=== PATIENT | male | born 1940 | race Caucasian/White ===

== ENCOUNTER → 2018-08-22 08:41 | Outpatient (CLI) | payer OTHER, SELFPAY ==
--- NOTE | 2018-08-22 | DI.CT.S_ITS ---
PROCEDURE: CT KIDNEY URETER BLADDER (KUB) INDICATIONS: ABDOMINAL PAIN TECHNIQUE: Noncontrast 5 mm thick sections acquired from the diaphragms to the symphysis. 5 mm thick coronal and sagittal reformats were then performed. For radiation dose reduction, the following was used: automated exposure control, adjustment of mA and/or kV according to patient size. COMPARISON: [facility], CT, KIDNEY/ URETER/BLADDER, 01/30/2018, 9:52. FINDINGS: Image quality: Excellent. Lung bases: Lung bases are clear. Heart size is normal. Urinary system: Both kidneys are normal in size. No kidney stones. No hydronephrosis or perinephric fat stranding. Both ureters appear non-dilated throughout their expected courses. Bilateral renal cysts are present, with simple appearance although limited evaluation given the absence of IV contrast. Bladder wall thickness is normal; no calcified bladder stones. Other solid organs: Liver is normal in size. Gallbladder unremarkable although partially collapsed. Pancreas is normal in contours. Spleen is normal in size. No adrenal nodules. Peritoneum and bowel: Unenhanced bowel loops demonstrate normal wall thickness and caliber. No free fluid or air. Normal appendix Nodes and vessels: Bilateral renal hilar vascular calcifications No retroperitoneal or mesenteric adenopathy by size criteria. Aorta and inferior vena cava are normal in caliber. Abdominal wall: No ventral hernias. Pelvis: No free pelvic fluid. Small bilateral fat containing inguinal hernias. No pelvic adenopathy. Prostate enlarged. Bones: No suspicious bony lesions. No vertebral body compression fractures. IMPRESSION: No urolithiasis. No evidence of urinary obstruction. Presumed bilateral renal cysts, technically indeterminate in the absence of IV contrast although grossly unchanged. Normal appendix. Elsewhere, no acute abnormality. Chronic and incidental findings as above. Dictated by: Dyllan Golden M.D. on 08/22/2018 at 10:24 Approved by: Dyllan Golden M.D. on 08/22/2018 at 10:32
== END ==
PROVIDERS: PCP Internal Medicine; Visit Provider Internal Medicine
DX: N28.1 Cyst of kidney, acquired (principal); K40.20 Bilateral inguinal hernia, without obstruction or gangrene, not specified as recurrent; N40.0 Benign prostatic hyperplasia without lower urinary tract symptoms; R10.9 Unspecified abdominal pain
CPT/HCPCS: 74176

== ENCOUNTER → 2019-04-01 16:09 | Outpatient (CLI) | payer OTHER, SELFPAY ==
--- NOTE | 2019-04-01 | DI.RAD.S_ITS ---
PROCEDURE: XR CHEST 2V INDICATIONS: HYPERTENSION,PLEURAL EFFUSION TECHNIQUE: 2 views of the chest were acquired. COMPARISON: [facility], , CHEST 1 VIEW, 10/04/2016, 21:17. FINDINGS: Surgical changes and devices: Median sternotomy changes are present.. Lungs and pleura: Small bilateral effusions are identified with blunting of the posterior costophrenic angles. The pulmonary vascular markings are slightly prominent within the perihilar regions. No lobar consolidation is evident. Mediastinum: Mediastinal contours are normal. Heart size is mildly enlarged. There is aortic atherosclerosis. Bones and chest wall: No suspicious bony abnormalities. Soft tissues appear unremarkable. IMPRESSION: Cardiomegaly with increased vascular markings in small effusions may represent congestive heart failure and clinical correlation is recommended. Dictated by: Joaquín Monroe M.D. on 04/02/2019 at 8:56 Approved by: Joaquín Monroe M.D. on 04/02/2019 at 8:57
[2019-04-01 17:21] LABS: BUN Creatinine Ratio 11.4 (6-22); Blood Urea Nitrogen 25 mg/dL (9-20); Calcium 8.7 mg/dL (8.4-10.2); Carbon Dioxide 28 mmol/L (22-32); Chloride 102 mmol/L (98-107); Estimated Glomerular Filt Rate 29.1 mL/min (>60); Glucose 102 mg/dL (80-110); HEMOLYSIS 30 (0-50); Potassium 4.9 mmol/L (3.4-5.1); Sodium 140 mmol/L (137-145)
== END ==
PROVIDERS: Visit Provider Internal Medicine
DX: I10 Essential (primary) hypertension (principal); J90 Pleural effusion, not elsewhere classified
CPT/HCPCS: 36415; 71046; 80048

== ENCOUNTER 2019-05-21 12:30 | Outpatient (RCR) | payer OTHER, SELFPAY ==
--- NOTE | 2019-04-24 16:00 | OT.OP.EVAL ---
Visit Care Team Role Provider Type Sindi Weinstein MD Attending Provider Physician Primary Care Provider Specialty: Internal Medicine Address: [address] [place] [address], [id number] Email: Occupational Therapy Initial Evaluation OT Outpatient Adult Evaluation Start: 04/24/19 15:23 Freq: Status: Active Protocol: Document 04/23/19 15:24 AMS (Rec: 04/24/19 16:00 AMS [id number]) General Information Visit Start Time 12:30 Visit Stop Time 13:30 Total Visit Minutes 60 Visit Number 10/23 Plan of Care Dates 04/23/19-07/16/19 Insurance Information [employer] Treatment Setting Outpatient Care Note Type Initial Evaluation Referring Physician Sindi Weinstein MD Reason for Referral CVA Precautions Sternal Precautions have been lifted Identification Confirmed Yes Identification Confirmed By Daughter Patient Goals Improve upon functional abilities (written expression; reading) Medical History Patient was admitted for planned coronary artery bypass grafting on March 03, 2019 at [facility] located in [place], [place]. Post op day 1, patient presented with slurred speech and word finding difficulties. 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 Deficits identified were aphasia, generalized weakness, decreased functional mobility, balance and right sided neglect. He received inpatient therapy services, (ST, OT, and PT) over a 9-day period. He was transferred to [place] and received an additional 2 weeks of intensive inpatient therapy services. From [place] , he was discharged home and received ST, OT, and PT Home Health Services through [facility]. [facility] Outpatient Health History form was completed; significant for blood pressure; Hepatitis C; Stroke; open heart surgery; Thyroid Disorder Previous Therapy/Therapies Yes History of Therapy Inpatient OT, PT, ST. Home Health OT, PT, ST. Social History Resides with . 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 Correctly identified 33/40 2- digit numbes (x 2) x 8 rows. Reported h/o skipping words when reading (per daughter). Difficulty with visual scanning. Difficulties observed w/ circling 2-digit numbers w/ visual scanning activity; however, improved w/ accuracy w/ repetitions. Difficulty reading favorite magazine (per daughter). Difficulty with visual discrimination and visual figure ground activities. Recommend finishing standardized assessment addressing visual perceptual skills at time of next treatment session. Range of Motion Basic ROM Function WFL Goals Treatment Initiated HEP. Instructed on methods to decrease amount of visual information presented at one time to support success w/ reading, as well as increase success w/ self- identifying errors w/ self- provided auditory feedback. Instructed in activities to complete at home to support identified areas. Discussed being 'present'/'checking in' when transitioning between tasks. Alex and his daughter denied questions. Short Term Goals 1. Patient will actively participate in visual perception/visual motor standardized assessments with encouragement from therapist. 2. Patient will demonstrate improving visual scanning abilities, as evidenced by patient's ability to correctly identify 90% of items with tabletop visual scanning activity, as observed in 2 out of 3 trials, requiring supervision. 3. Patient will demonstrate improving visual motor abilities, as evidenced by patient's ability to correctly la posta 90% of items with tabletop visual scanning activity, as observed in 2 out of 3 trials, requiring supervision. Correction Goals 1. Patient will be modified independent with home exercise program utilizing provided written and visual instructions from therapist. 2. Assessment/Plan Patient Response Good Rehabilitation Potential Good Impairments Identified Functional Activities Recreational Activities Meaningful Activities Visual Motor Visual Perception Motor Planning Treatment Assessment Patient is a 78 year-old right hand dominant male referred to outpatient OT by Sindi Weinstein MD d/t having stroke. Patient was admitted for planned coronary artery bypass grafting on March 03, 2019 at [facility] located in [place], [place]. Post op day 1, patient presented with slurred speech and word finding difficulties. 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 Deficits identified were aphasia, generalized weakness, decreased functional mobility, balance and right sided neglect. He received inpatient therapy services, (ST, OT, and PT) over a 9-day period. He was transferred to [place] and received an additional 2 weeks of intensive inpatient therapy services. From [place] , he was discharged home and received ST, OT, and PT Home Health Services through [facility]. Additional PMH: Significant for blood pressure ; Hepatitis C; Stroke; open heart surgery; Thyroid Disorder; Cataracts - h/o cataract surgery. Patient has been evaluated by outpatient TERMITE HELPER; will be seen on a regular basis. Patient was accompanied by daughter and granddaughter to OT initial evaluation. 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 's concerns: Navigation of [employer] cecelia; transitions between activities; using both hands/arms with s-s. Evaluation findings: Right hand dominant male; decreased ability to actively and successfully engage in meaningful activities compared to PLOF; decreased visual motor and visual perceptual skills. Outpatient OT is recommended to address these areas in order to maximize Alex's success with active participation in meaningful activities. Home Exercise Program Please refer to above treatment section for details. Comment 12 weeks Treatment Frequency Once a Week Therapeutic Contents Client Education Cognitive Skills Development Functional Activities Home Exercise Program Joint Protection Education Neurodevelopment Treatment Neuromuscular Re-Education Self-Care Stretching/Flexibility Activities Therapeutic Activities Therapeutic Exercises Sensory Re-education Modalities As Needed As Prescribed Patient Instruction Home Exercise Program Plan of Care Questions/Concerns
--- NOTE | 2019-05-05 16:11 | OT.OP.TRT ---
Visit Care Team Role Provider Type Sindi Weinstein MD Attending Provider Physician Primary Care Provider Specialty: Internal Medicine Address: [address] [place] [address], [id number] Email: Occupational Therapy Treatment Note OT Outpatient Treatment Note - Adult Start: 04/24/19 15:23 Freq: Status: Active Protocol: Document 05/05/19 15:54 AMS (Rec: 05/05/19 16:11 AMS [email or web address]) OT Outpatient Adult Treatment Note Session Time Visit Start Time 13:30 Visit Stop Time 14:30 Total Visit Minutes 60 Visit Information Visit Number [id number] Plan of Care Dates 04/23/19-07/16/19 Insurance Information [employer] Setting Treatment Setting Outpatient Care Visit Type Note Type Treatment Note General Information General Information Patient is a 78 year-old right hand dominant male referred to outpatient OT by Sindi Weinstein MD d/t having stroke. Patient was admitted for planned coronary artery bypass grafting on March 03, 2019 at [facility] located in [place], [place]. Post op day 1, patient presented with slurred speech and word finding difficulties. 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 Deficits identified were aphasia, generalized weakness, decreased functional mobility, balance and right sided neglect. He received inpatient therapy services, (ST, OT, and PT) over a 9-day period. He was transferred to [facility] and received an additional 2 weeks of intensive inpatient therapy services. From [facility] , he was discharged home and received ST, OT, and PT Home Health Services through [facility]. Additional PMH: Significant for blood pressure ; Hepatitis C; Stroke; open heart surgery; Thyroid Disorder; Cataracts - h/o cataract surgery. Patient has been evaluated by outpatient RN X RAY; will be seen on a regular basis. - Subjective Identification Type Name Identification Reconciled With Medical Record Others Present Family Observations He was able to put the juicer together, take it apart, and then clean it all by himself this morning per . He has started doing john yoga at home again per . He had trouble with his spatial awareness before all of this happened per . Patient Expectation/Goals Improve upon functional abilities (written expression; reading) Patient/Caregiver Compliance with Home Good Exercise Program Comments w/ family support - Objective Objective Measurements Therapist finished administering the Motor-Free Visual Perception Test - Fourth Edition on this treatment date; please refer to standardized section of note for specific details. Impaired visual perceptual skills; decreased understanding of spatial relations. (+) understanding of laterality (left versus right) per 's report and ability to match therapist's image. Short Term Goals 1. Patient will actively participate in visual perception/visual motor standardized assessments with encouragement from therapist. 2. Patient will demonstrate improving visual scanning abilities, as evidenced by patient's ability to correctly identify 90% of items with tabletop visual scanning activity, as observed in 2 out of 3 trials, requiring supervision. 3. Patient will demonstrate improving visual motor abilities, as evidenced by patient's ability to correctly [place] 90% of items with tabletop visual scanning activity, as observed in 2 out of 3 trials, requiring supervision. Lard Bleacher Goals 1. Patient will be modified independent with home exercise program utilizing provided written and visual instructions from therapist. - Treatment 2 Descriptor HEP. Visual perceptual activities were recommended to address spatial relationships , visual memory and visual discrimination. Activities were demonstrated in treatment session. Functional visual scanning activities were also recommended. Patient and denied questions. Complexity Upgraded 1 Descriptor Visual perceptual skills - Assessment Patient Response to Treatment Good Rehab Potential Good Impairments Identified Attention Cognition Visual Motor Visual Perception Assessment of Improvement Patient was accompanied by ; (+) support from family/ spouse. MVPT-4: The Motor- Free Visual Perception Test ( 4th ed.) (MVPT-4) is an individually administered assessment of visual- perceptual skills. The MVPT-4 tasks provide information for five types of visual- perceptual abilities: spatial relationships, visual discrimination, figure-ground, visual closure, and visual memory. Alex obtained a standard score of 79 which is >1 SD below the mean.Alex's performance suggests that his visual perceptual abilities are slightly impaired compared to his peers. Recommend advancing HEP as able/ tolerated. Home Exercise Program Please refer to treatment section of note for specific details. Reviewed with Patient/Caregiver Goals Progress Being Made Home Exercise Program Patient/Caregiver Understanding Good - Plan Therapy Recommendations Continue with Current Program Advance per Rehabilitation Protocol Other Referrals Consult w/ RN X RAY Occupational Therapy Assessment OT Outpatient Standardized Assessments Start: 04/24/19 15:23 Freq: Status: Active Protocol: Document 05/05/19 15:54 AMS (Rec: 05/05/19 16:11 AMS [email or web address]) Motor-Free Visual Perception Test-4 (4:0 to 80+ years) Date of Test Date of Test 04/23/19 & 05/05/19 Age in Months Age 78 years, 8 months Score Summary Raw Score 19 Standard Score 79 Percentile Rank 8
--- NOTE | 2019-05-13 11:21 | OT.OP.TRT ---
Visit Care Team Role Provider Type Sindi Weinstein MD Attending Provider Physician Primary Care Provider Specialty: Internal Medicine Address: [address] [place] [address], [id number] Email: Occupational Therapy Treatment Note OT Outpatient Treatment Note - Adult Start: 04/24/19 15:23 Freq: Status: Active Protocol: Document 05/13/19 11:07 AMS (Rec: 05/13/19 11:21 AMS [email or web address]) OT Outpatient Adult Treatment Note Session Time Visit Start Time 09:30 Visit Stop Time 10:30 Total Visit Minutes 60 Visit Information Visit Number 12/21 Plan of Care Dates 04/23/19-07/16/19 Insurance Information [facility]-Medicare Setting Treatment Setting Outpatient Care Visit Type Note Type Treatment Note General Information General Information Patient is a 78 year-old right hand dominant male referred to outpatient OT by Sindi Weinstein MD d/t having stroke. Patient was admitted for planned coronary artery bypass grafting on March 03, 2019 at [facility] located in [place], [place]. Post op day 1, patient presented with slurred speech and word finding difficulties. 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 Deficits identified were aphasia, generalized weakness, decreased functional mobility, balance and right sided neglect. He received inpatient therapy services, (ST, OT, and PT) over a 9-day period. He was transferred to [place] and received an additional 2 weeks of intensive inpatient therapy services. From [place] , he was discharged home and received ST, OT, and PT Home Health Services through [facility]. Additional PMH: Significant for blood pressure ; Hepatitis C; Stroke; open heart surgery; Thyroid Disorder; Cataracts - h/o cataract surgery. Patient has been evaluated by outpatient PRE CERTIFICATION SPECIALIST; will be seen on a regular basis. - Subjective Identification Type Name Identification Reconciled With Medical Record Others Present Family Observations He is doing amazing in P.T. per . He is doing yoga and interval training at home . He now knows above and below per . I thought I missed more than that per Alex in re: visual scanning activity that was completed. Patient Expectation/Goals Improve upon functional abilities (written expression; reading) Patient/Caregiver Compliance with Home Good Exercise Program Comments w/ family support - Objective Objective Measurements Therapist finished administering [facility]; please refer to standardized section of note for specific details. Impaired visual perceptual skills; impaired visual motor abilities. Correctly identified 35/36 items with visual scanning activity (x 2 items - upper case letters). Short Term Goals 1. Patient will actively participate in visual perception/visual motor standardized assessments with encouragement from therapist. 05/13/19= participated in Beery VMI Full Form 2. Patient will demonstrate improving visual scanning abilities, as evidenced by patient's ability to correctly identify 90% of items with tabletop visual scanning activity, as observed in 2 out of 3 trials, requiring supervision. 05/13/19= 50% met; x 1 trial 3. Patient will demonstrate improving visual motor abilities, as evidenced by patient's ability to correctly [place] 90% of items with tabletop visual scanning activity, as observed in 2 out of 3 trials, requiring supervision. 05/13/19= 50% met; x 1 trial 4. Patient will demonstrate improving visual perceptual/ visual motor abilities, as evidenced by patient's ability to [place] and identify 90% of words in word search requiring supervision. 05/13/19 = 6/15 w/ max assist x 2 words Electrolysis Engineer Goals 1. Patient will be modified independent with home exercise program utilizing provided written and visual instructions from therapist. - Treatment 3 Descriptor Beery VMI Full Form 2 Descriptor HEP. Recommended word searches ; instructed in tool to support ability to visually identify words in diagonals ( both directions). Demonstrated use of tool in treatment session. Provided several word searches for home completion. Recommended practicing writing and mazes to support visual motor abilities. Patient and denied questions. Complexity Upgraded 1 Descriptor Visual perceptual skills - Assessment Patient Response to Treatment Good Rehab Potential Good Impairments Identified Attention Cognition Visual Motor Visual Perception Assessment of Overall Progress Improving Assessment of Improvement Patient was accompanied by ; (+) support from family/ spouse. Beery VMI Full Form was administered; Alex's performance on the Beery VMI suggests that he has a decreased ability to integrate visual and motor abilities compared to same aged peers ( raw score = 19; standard score = 71; Low categorization of performance). Given time constraints, therapist was unable to administer Visual Perception and Motor Coordination Beery VMI subtests. Recommend administering additional subtest(s) at time of next treatment session ( specifically Motor Coordination subtest). Despite impaired visual motor abilities identified with standardized testing, Alex is demonstrating improving ability to interpret visual information. This is evidenced by correctly identifying 35/ 36 with visual scanning task ( versus initially identifying 33/40 correctly on first activity). This is also evidenced by ability to upgrade HEP and introduce diagonals w/ visual perceptual spatial relationship understanding. Recommend advancing HEP as able/ tolerated. Home Exercise Program Please refer to treatment section of note for specific details. Reviewed with Patient/Caregiver Goals Progress Being Made Home Exercise Program Patient/Caregiver Understanding Good - Plan Therapy Recommendations Continue with Current Program Advance per Rehabilitation Protocol Other Referrals Consult w/ PRE CERTIFICATION SPECIALIST and PT Occupational Therapy Assessment OT Outpatient Standardized Assessments Start: 04/24/19 15:23 Freq: Status: Active Protocol: Document 05/13/19 11:07 AMS (Rec: 05/13/19 11:21 AMS [email or web address]) Motor-Free Visual Perception Test-4 (4:0 to 80+ years) Date of Test Date of Test 04/23/19 & 05/05/19 Age in Months Age 78 years, 8 months Score Summary Raw Score 19 Standard Score 79 Percentile Rank 8 Rosakian GUMARO Date of Test Date of Test 05/13/19 Full Form Raw Score 19 Standard Score 71 Scaled Score 4 Percentile 3 Interpretation of Standard Score Low (70-79)
--- NOTE | 2019-05-18 15:59 | OT.OP.TRT ---
Visit Care Team Role Provider Type Sindi Weinstein MD Attending Provider Physician Primary Care Provider Specialty: Internal Medicine Address: [address] [place] [address], [id number] Email: Occupational Therapy Treatment Note OT Outpatient Treatment Note - Adult Start: 04/24/19 15:23 Freq: Status: Active Protocol: Document 05/18/19 15:49 AMS (Rec: 05/18/19 15:59 AMS [email or web address]) OT Outpatient Adult Treatment Note Session Time Visit Start Time 13:30 Visit Stop Time 14:30 Total Visit Minutes 60 Visit Information Visit Number 01/21 Plan of Care Dates 04/23/19-07/16/19 Insurance Information [employer]-Medicare Setting Treatment Setting Outpatient Care Visit Type Note Type Treatment Note General Information General Information Patient is a 78 year-old right hand dominant male referred to outpatient OT by Sindi Weinstein MD d/t having stroke. Patient was admitted for planned coronary artery bypass grafting on March 03, 2019 at [facility] located in [place], [place]. Post op day 1, patient presented with slurred speech and word finding difficulties. 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 Deficits identified were aphasia, generalized weakness, decreased functional mobility, balance and right sided neglect. He received inpatient therapy services, (ST, OT, and PT) over a 9-day period. He was transferred to [place] and received an additional 2 weeks of intensive inpatient therapy services. From [place] , he was discharged home and received ST, OT, and PT Home Health Services through [facility]. Additional PMH: Significant for blood pressure ; Hepatitis C; Stroke; open heart surgery; Thyroid Disorder; Cataracts - h/o cataract surgery. Patient has been evaluated by outpatient SKILLS INSTRUCTOR; will be seen on a regular basis. - Subjective Identification Type Name Identification Reconciled With Medical Record Others Present Family Observations He is doing amazing in P.T. per . He is doing yoga and interval training at home . He now knows above and below per . I thought I missed more than that per Alex in re: visual scanning activity that was completed. Patient Expectation/Goals Improve upon functional abilities (written expression; reading) Patient/Caregiver Compliance with Home Good Exercise Program Comments w/ family support - Objective Objective Measurements Accompanied by 'Merline' to treatment session. Able to replicate 5/5 3x3 dot grid patterns w/ 1 model and S. Mod to max difficulty w/ visual motor TT task w/ 4 different pairs to match; mod phys assist to successfully complete. Max verbal and visual cues to support success w/ matching tiles w/ visual perceptual TT task. Correctly identified 35/36 items with visual scanning activity (x 2 items - upper case letters). Short Term Goals 1. Patient will actively participate in visual perception/visual motor standardized assessments with encouragement from therapist. 05/13/19= participated in iYogiy I Full Form 2. Patient will demonstrate improving visual scanning abilities, as evidenced by patient's ability to correctly identify 90% of items with tabletop visual scanning activity, as observed in 2 out of 3 trials, requiring supervision. 05/13/19= 50% met; x 1 trial 3. Patient will demonstrate improving visual motor abilities, as evidenced by patient's ability to correctly [place] 90% of items with tabletop visual scanning activity, as observed in 2 out of 3 trials, requiring supervision. 05/13/19= 50% met; x 1 trial 4. Patient will demonstrate improving visual perceptual/ visual motor abilities, as evidenced by patient's ability to [place] and identify 90% of words in word search requiring supervision. 05/13/19 = 6/15 w/ max assist x 2 words Business Technology Analyst Goals 1. Patient will be modified independent with home exercise program utilizing provided written and visual instructions from therapist. - Treatment 4 Descriptor Visual motor skills Puzzle pathways; imitation of 3x3 grids; directional maze Complexity Upgraded 3 Descriptor Beery VMI Full Form 2 Descriptor HEP. Upgraded visual scanning tasks x 2 w/ arrows to assist w/ directionality in different situations; demonstrated in treatment session. Provided additional large print word searches, as well as visual motor tasks (x 2 different approaches - dots versus pathways w/ pencil (with restrictions). Visual motor tasks practiced in treatment session; all questions were answered. Patient and Mreline denied questions. Complexity Upgraded 1 Descriptor Visual perceptual skills x2 opposite arrows w/ visual scanning; grid tile game ( simplified); Complexity Upgraded - Assessment Patient Response to Treatment Good Rehab Potential Good Impairments Identified Attention Cognition Visual Motor Visual Perception Assessment of Overall Progress Improving Rehabilitated Assessment of Improvement Focus of treatment session on HEP given therapist will be going on vacation. Recommend administering additional subtest(s) at time of next treatment session ( specifically Motor Coordination subtest) time permitting. Continued need to address impaired visual perceptual and visual motor skills. Recommend combining visual perceptual and visual fine motor tasks as able. Recommend advancing HEP as able/tolerated. Home Exercise Program Please refer to treatment section of note for specific details. Reviewed with Patient/Caregiver Goals Progress Being Made Home Exercise Program Patient/Caregiver Understanding Good - Plan Therapy Recommendations Continue with Current Program Advance per Rehabilitation Protocol Other Referrals Consult w/ SKILLS INSTRUCTOR and PT
--- NOTE | 2019-05-21 15:48 | OT.OP.TRT ---
Visit Care Team Role Provider Type Sindi Weinstein MD Attending Provider Physician Primary Care Provider Specialty: Internal Medicine Address: [address] [place] [address], [id number] Email: Occupational Therapy Treatment Note OT Outpatient Treatment Note - Adult Start: 04/24/19 15:23 Freq: Status: Active Protocol: Document 05/21/19 15:33 AMS (Rec: 05/21/19 15:35 AMS [email or web address]) OT Outpatient Adult Treatment Note Session Time Visit Start Time 12:30 Visit Stop Time 13:25 Total Visit Minutes 55 Visit Information Visit Number 02/20 Plan of Care Dates 04/23/19-07/16/19 Insurance Information [facility]-Medicare Setting Treatment Setting Outpatient Care Visit Type Note Type Treatment Note General Information General Information Patient is a 78 year-old right hand dominant male referred to outpatient OT by Sindi Weinstein MD d/t having stroke. Patient was admitted for planned coronary artery bypass grafting on March 03, 2019 at [facility] located in [place], [place]. Post op day 1, patient presented with slurred speech and word finding difficulties. 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 Deficits identified were aphasia, generalized weakness, decreased functional mobility, balance and right sided neglect. He received inpatient therapy services, (ST, OT, and PT) over a 9-day period. He was transferred to [place] and received an additional 2 weeks of intensive inpatient therapy services. From [place] , he was discharged home and received ST, OT, and PT Home Health Services through [facility]. Additional PMH: Significant for blood pressure ; Hepatitis C; Stroke; open heart surgery; Thyroid Disorder; Cataracts - h/o cataract surgery. Patient has been evaluated by outpatient WIRE FRAME LAMP SHADE MAKER; will be seen on a regular basis. - Subjective Identification Type Name Identification Reconciled With Medical Record Others Present Family Observations We would like to have some more to work on per Merline w/ therapist being out of the clinic during the upcoming weeks. Patient Expectation/Goals Improve upon functional abilities (written expression; reading) Patient/Caregiver Compliance with Home Good Exercise Program Comments w/ family support - Objective Objective Measurements Accompanied by 'Merline' to treatment session. Missed 4 items with visual scanning paper TT task; increased difficulty of task w/ decreased spacing between letters. Able to imitate x 3 simple square grid images (x 1 on 4x9 grid; x 1 on 8x7 grid; x 1 on 6x5) WFL w/ increased time and cueing to break down task into smaller component parts - focusing on 1-step at a time. Able to correctly continue 5/7 square patterns w / 1-2 to max verbal cues. Increased accuracy observed w/ shading/coloring when focused on present task. Correctly identified 35/36 items with visual scanning activity (x 2 items - upper case letters). Short Term Goals 1. Patient will demonstrate improving visual scanning abilities, as evidenced by patient's ability to correctly identify 90% of items with tabletop visual scanning activity, as observed in 2 out of 3 trials, requiring supervision. 05/13/19= 50% met; x 1 trial 2. Patient will demonstrate improving visual motor abilities, as evidenced by patient's ability to correctly [facility] 90% of items with tabletop visual scanning activity, as observed in 2 out of 3 trials, requiring supervision. 05/13/19= 50% met; x 1 trial 3. Patient will demonstrate improving visual perceptual/ visual motor abilities, as evidenced by patient's ability to [facility] and identify 90% of words in word search requiring supervision. 05/13/19 = 6/15 w/ max assist x 2 words GOALS MET Actively participated in visual motor/visual perceptual standardized assessments. * MET [facility] Goals 1. Patient will be modified independent with home exercise program utilizing provided written and visual instructions from therapist. - Treatment 4 Descriptor Visual motor skills Imitation of square grid images x3; continuation of square patterns x7 Visual letter search (x 2 letters A, F) Complexity Upgraded 2 Descriptor HEP. Provided similar activities that were completed in treatment session for patient to complete in the home. Patient and Merline denied questions. Complexity Upgraded 1 Descriptor Visual perceptual skills x2 opposite arrows w/ visual scanning; grid tile game ( simplified); Complexity Upgraded - Assessment Patient Response to Treatment Good Rehab Potential Good Impairments Identified Attention Cognition Visual Motor Visual Perception Assessment of Overall Progress Improving Rehabilitated Assessment of Improvement Impaired visual perceptual/ visual motor skills. Increased accuracy at fine motor level relative to quality of completion w/ increased focus on current task/breaking down task into smaller component parts. Patient verbalized need for increased concentration when completing visual motor tasks. Recommend combining visual perceptual and visual fine motor tasks as able. Recommend advancing HEP as able/tolerated. Home Exercise Program Please refer to treatment section of note for specific details. Reviewed with Patient/Caregiver Goals Progress Being Made Home Exercise Program Patient/Caregiver Understanding Good - Plan Therapy Recommendations Continue with Current Program Advance per Rehabilitation Protocol Other Referrals Consult w/ WIRE FRAME LAMP SHADE MAKER and PT
--- NOTE | 2019-05-25 15:19 | OT.OP.TRT ---
Visit Care Team Role Provider Type Sindi Weinstein MD Attending Provider Physician Primary Care Provider Specialty: Internal Medicine Address: [address] [place] [address], [phone] Email: Occupational Therapy Treatment Note OT Outpatient Treatment Note - Adult Start: 04/24/19 15:23 Freq: Status: Active Protocol: Document 05/25/19 15:14 AMS (Rec: 05/25/19 15:19 AMS [email or web address]) OT Outpatient Adult Treatment Note Session Time Visit Start Time 14:30 Setting Treatment Setting Outpatient Care Visit Type Note Type Administrative Note General Information General Information Patient is a 78 year-old right hand dominant male referred to outpatient OT by Sindi Weinstein MD d/t having stroke. Patient was admitted for planned coronary artery bypass grafting on March 03, 2019 at [facility] located in [place], [place]. Post op day 1, patient presented with slurred speech and word finding difficulties. 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 Deficits identified were aphasia, generalized weakness, decreased functional mobility, balance and right sided neglect. He received inpatient therapy services, (ST, OT, and PT) over a 9-day period. He was transferred to [place] and received an additional 2 weeks of intensive inpatient therapy services. From [place] , he was discharged home and received ST, OT, and PT Home Health Services through [facility]. Additional PMH: Significant for blood pressure ; Hepatitis C; Stroke; open heart surgery; Thyroid Disorder; Cataracts - h/o cataract surgery. Patient has been evaluated by outpatient AFFILIATE MARKETING COORDINATOR; will be seen on a regular basis. - Subjective Observations Additional TT HEP OT activities were provided to Alex prior to outpatient AFFILIATE MARKETING COORDINATOR appointment for completion over the next several weeks given that therapist would be out of the clinic. Example of TT activities included were: mazes, word searches. - - - -
--- NOTE | 2019-06-16 10:41 | OT.OP.DC ---
Visit Care Team Role Provider Type Sindi Weinstein MD Attending Provider Physician Primary Care Provider Address: [address] [place] [address], [id number] Email: [email or web address] OT Outpatient OT Outpatient Adult Evaluation Start: 04/24/19 15:23 Freq: Status: Active Protocol: Document 04/23/19 15:24 AMS (Rec: 04/24/19 16:00 AMS [id number]) General Information Session Time Visit Start Time 12:30 Visit Stop Time 13:30 Total Visit Minutes 60 Visit Information Visit Number 10/23 Plan of Care Dates 04/23/19-07/16/19 Insurance Information [facility]-Medicare Setting Treatment Setting Outpatient Care Visit Type Note Type Initial Evaluation Referral Referring Physician Sindi Weinstein MD Reason for Referral CVA Precautions Sternal Precautions have been lifted Identification Identification Confirmed Yes Identification Confirmed By Daughter Patient Patient Goals Improve upon functional abilities (written expression; reading) Medical Information Medical History Patient was admitted for planned coronary artery bypass grafting on March 03, 2019 at [facility] located in [place], [place]. Post op day 1, patient presented with slurred speech and word finding difficulties. 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 Deficits identified were aphasia, generalized weakness, decreased functional mobility, balance and right sided neglect. He received inpatient therapy services, (ST, OT, and PT) over a 9-day period. He was transferred to [place] and received an additional 2 weeks of intensive inpatient therapy services. From [place] , he was discharged home and received ST, OT, and PT Home Health Services through [facility]. [facility] Outpatient Health History form was completed; significant for blood pressure; Hepatitis C; Stroke; open heart surgery; Thyroid Disorder Previous Therapy Previous Therapy/Therapies Yes History of Therapy Inpatient OT, PT, ST. Home Health OT, PT, ST. Social Information Social History Resides with . 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 Correctly identified 33/40 2- digit numbes (x 2) x 8 rows. Reported h/o skipping words when reading (per daughter). Difficulty with visual scanning. Difficulties observed w/ circling 2-digit numbers w/ visual scanning activity; however, improved w/ accuracy w/ repetitions. Difficulty reading favorite magazine (per daughter). Difficulty with visual discrimination and visual figure ground activities. Recommend finishing standardized assessment addressing visual perceptual skills at time of next treatment session. Range of Motion Overall Ability Basic ROM Function WFL Goals Treatment Treatment Initiated HEP. Instructed on methods to decrease amount of visual information presented at one time to support success w/ reading, as well as increase success w/ self- identifying errors w/ self- provided auditory feedback. Instructed in activities to complete at home to support identified areas. Discussed being 'present'/'checking in' when transitioning between tasks. Alex and his daughter denied questions. Short Term Goals Short Term Goals 1. Patient will actively participate in visual perception/visual motor standardized assessments with encouragement from therapist. 2. Patient will demonstrate improving visual scanning abilities, as evidenced by patient's ability to correctly identify 90% of items with tabletop visual scanning activity, as observed in 2 out of 3 trials, requiring supervision. 3. Patient will demonstrate improving visual motor abilities, as evidenced by patient's ability to correctly the [place] 90% of items with tabletop visual scanning activity, as observed in 2 out of 3 trials, requiring supervision. Alf Goals Rf Test Technician Goals 1. Patient will be modified independent with home exercise program utilizing provided written and visual instructions from therapist. 2. Assessment/Plan Assessment Patient Response Good Rehabilitation Potential Good Impairments Identified Functional Activities, Recreational Activities, Meaningful Activities,Visual Motor,Visual Perception,Motor Planning Treatment Assessment Patient is a 78 year-old right hand dominant male referred to outpatient OT by Sindi Weinstein MD d/t having stroke. Patient was admitted for planned coronary artery bypass grafting on March 03, 2019 at [facility] located in [place], [place]. Post op day 1, patient presented with slurred speech and word finding difficulties. 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 Deficits identified were aphasia, generalized weakness, decreased functional mobility, balance and right sided neglect. He received inpatient therapy services, (ST, OT, and PT) over a 9-day period. He was transferred to [place] and received an additional 2 weeks of intensive inpatient therapy services. From [place] , he was discharged home and received ST, OT, and PT Home Health Services through [facility]. Additional PMH: Significant for blood pressure ; Hepatitis C; Stroke; open heart surgery; Thyroid Disorder; Cataracts - h/o cataract surgery. Patient has been evaluated by outpatient MARKET RESEARCH INTERVIEWER; will be seen on a regular basis. Patient was accompanied by daughter and granddaughter to OT initial evaluation. 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 's concerns: Navigation of [employer] cecelia; transitions between activities; using both hands/arms with s-s. Evaluation findings: Right hand dominant male; decreased ability to actively and successfully engage in meaningful activities compared to PLOF; decreased visual motor and visual perceptual skills. Outpatient OT is recommended to address these areas in order to maximize Alex's success with active participation in meaningful activities. Home Exercise Program Please refer to above treatment section for details. Plan Comment 12 weeks Treatment Frequency Once a Week Therapeutic Contents Client Education,Cognitive Skills Development,Functional Activities,Home Exercise Program,Joint Protection, Education,Neurodevelopment Treatment,Neuromuscular Re- Education,Self-Care,Stretching /Flexibility Activities, Therapeutic Activities, Therapeutic Exercises,Sensory Re-education Modalities As Needed,As Prescribed Patient Instruction Home Exercise Program,Plan of Care,Questions/Concerns Sensory Assessment Sensory Profile2 Functional Wrist/Hand Scan Hand Side OT Outpatient Treatment Note - Adult Start: 04/24/19 15:23 Freq: Status: Active Protocol: Document 06/16/19 10:39 AMS (Rec: 06/16/19 10:41 AMS [id number]) OT Outpatient Adult Treatment Note Visit Information Visit Number 02/20 Plan of Care Dates 04/23/19-07/16/19 Insurance Information [facility]-Medicare Setting Treatment Setting Outpatient Care Visit Type Note Type Discharge Summary General Information General Information Mr. Giles was admittted for coronary artery bypass grafting on March 03, 2019 at [facility] in [place]. Slurred speech and word finding difficulty were observed post op day [address] showed L MCA stroke. His deficits were aphasia, generalized weakness, decreased functional mobility, balance and R neglect. He received inpatient ST, OT and PT over the course of the 9 day hospitalization and then received inpatient rehab in [place] for ~ 2 weeks. Once home, he received home health ST, OT and PT through [facility]. 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 - Subjective Observations Transfer outpatient OT care to [facility] per patient/family request. - Objective Short Term Goals ALL GOALS D/C 06/16/19 1. Patient will demonstrate improving visual scanning abilities, as evidenced by patient's ability to correctly identify 90% of items with tabletop visual scanning activity, as observed in 2 out of 3 trials, requiring supervision. 05/13/19= 50% met; x 1 trial 2. Patient will demonstrate improving visual motor abilities, as evidenced by patient's ability to correctly the [place] 90% of items with tabletop visual scanning activity, as observed in 2 out of 3 trials, requiring supervision. 05/13/19= 50% met; x 1 trial 3. Patient will demonstrate improving visual perceptual/ visual motor abilities, as evidenced by patient's ability to the [place] and identify 90% of words in word search requiring supervision. 05/13/19 = 6/15 w/ max assist x 2 words GOALS MET Actively participated in visual motor/visual perceptual standardized assessments. * MET - - Assessment Assessment of Improvement Transfer outpatient OT care to [facility] per patient/family request. Patient to be d/c from [facility] Outpatient OT at this time. - Plan Therapy Recommendations Discharge from Occupational Therapy
== END 2019-06-26 08:10 ==
LOC: OT 12:30
PROVIDERS: PCP Internal Medicine; Visit Provider Internal Medicine
DX: I63.9 Cerebral infarction, unspecified (principal)
CPT/HCPCS: 97165; 97530

== ENCOUNTER 2019-06-30 12:00 | Outpatient (RCR) | payer OTHER, SELFPAY ==
--- NOTE | 2019-05-06 18:53 | PT.OIE ---
Current Diagnoses Cerebral infarction, unspecified (05/06/19) Difficulty in walking, not elsewhere classified (05/06/19) Weakness (05/06/19) Provider Visit Care Team Role Provider Type Sindi Weinstein MD Attending Provider Physician Primary Care Provider Specialty: Internal Medicine Address: [address] [place] [address], [facility] Email: Physical Therapy Initial Evaluation PT-OP-A Visit Information Start: 05/06/19 10:46 Freq: Status: Active Protocol: Document 05/06/19 14:12 AR (Rec: 05/06/19 14:41 AR [email or web address]) Out-Patient Physical Therapy Visit Information Visit Information Visit Type Initial Evaluation Visit Start Time 10:35 Visit Stop Time 11:20 Total Visit Minutes 45 Visit Number 1 Number of ORNAMENTAL IRONWORKER HELPER Visits 0 Precautions Precautions sternal precautions lifted 1 week ago PT-OP-B Current Condition Start: 05/06/19 10:46 Freq: Status: Active Protocol: Document 05/06/19 14:12 AR (Rec: 05/06/19 14:41 AR [email or web address]) Current Condition History of Current Condition Onset Date 03/03/2019 Current Complaints dec balance, sternal incision TTP, dec walking speed, dec aerobic capacity History of Current Condition Pt admitted for planned CABG on 03/03/2019 at [facility] in [place], [place]. Day 1 post-op, pt presented with slurred speech and word finding difficulties. CT scan showed L MCA CVA. Deficits include aphasia, generalized weakness, dec functional mobility, balance and right sided neglect. Pt received inpatient services (PT, OT, ST ) over 9 day period. Pt was then transfered to [facility] for 2 weeks of intensive therapy and then discharged home to receive home health PT , OT, ST through [facility]. Information taken from OT evaluation. Prior Treatments and Tests Inpatient OT, PT, ST. Home Health OT, PT, ST Future Testing and Treatments Planned possible referral to [facility] rehab Treatment Goals Patient/Caregiver Goals inc aerobic activity and capacity PT-OP-C Subjective Start: 05/06/19 10:46 Freq: Status: Active Protocol: Document 05/06/19 14:12 AR (Rec: 05/06/19 14:41 AR [email or web address]) OP-PT Subjective Patient Comments Patient Comments Pt has been able to perform Andrea yoga at 90% of PLOF, but his notes that he has some delayed movement with his R UE during some poses. Pt was encouraged to perform aerobic exercise by another healthcare provider (30-50 min /day) and his was concerned that he is not able to stress cardivascular system enough during Andrea. Pt enjoys interval training ( using the 7 Minute cecelia) but he has not been able to incorporate that since his stroke. PT-OP-D Balance Start: 05/06/19 10:46 Freq: Status: Active Protocol: Document 05/06/19 14:12 AR (Rec: 05/06/19 15:18 AR [email or web address]) Balance Tests Other Other Balance Tests Performed FGA: score ( indicates higher fall risk) PT-OP-G Mobility & Gait Start: 05/06/19 10:46 Freq: Status: Active Protocol: Document 05/06/19 14:12 AR (Rec: 05/06/19 14:41 AR [email or web address]) OP Mobility Evaluation Bed Mobility Rolling Independent, but had difficulty following directions to change position in bed Supine to and from Sit Indepenent. Able to follow simple command to sit up OP Gait Assessment Gait Gait Assistance Required: Independent Able to Maintain Weight Bearing Status Yes During Gait Assistive Devices Assistive Device None Gait Deviations General Gait Pattern Decreased Stride Length Decreased Feet Clearance Factors Limiting Gait Function Factors Limiting Gait Function Decreased Strength Difficulty Following Directions Incoordination Poor Balance Poor Safety Awareness Comments Gait Comments decreased safety awareness and dec spatial awareness. PT-OP-M Strength Start: 05/06/19 10:46 Freq: Status: Active Protocol: Document 05/06/19 14:12 AR (Rec: 05/06/19 15:17 AR [email or web address]) Shoulder Strength Shoulder Manual Muscle Testing Left Flexion 3+ Fair+ Abduction (C5) 3+ Fair+ External Rotation 4 Good Internal Rotation 4 Good Right Flexion 4 Good Abduction (C5) 3+ Fair+ External Rotation 3+ Fair+ Internal Rotation 4+ Good+ Wrist Strength Wrist Manual Muscle Testing Left Flexion (C7) 4+ Good+ Extension (C6) 4+ Good+ Right Flexion (C7) 4 Good Extension (C6) 4+ Good+ Hip Strength Hip Manual Muscle Testing Left Flexion (L2) 4- Good- Extension (S1) 4 Good Abduction 4 Good External Rotation 4+ Good+ Internal Rotation 4+ Good+ Right Flexion (L2) 4 Good Extension (S1) 4 Good External Rotation 4- Good- Internal Rotation 5 Normal Reason Not Measured Communication Comments unable to test hip abd, pt was unable to assume position necessary for testing d/t lack of understanding Knee Strength Knee Manual Muscle Testing Left Flexion (S2) 4+ Good+ Extension (L3) 5 Normal Right Flexion (S2) 4+ Good+ Extension (L3) 5 Normal Ankle/Foot Strength Ankle and Foot Manual Muscle Testing Left Dorsiflexion (L4) 4- Good- Plantarflexion (S1) 4+ Good+ Comments plantarflexion tested in sitting with manual resistance Right Dorsiflexion (L4) 4- Good- Plantarflexion (S1) 5 Normal Comments plantarflexion tested in sitting with manual resistance PT-OP-Q Treatments Start: 05/06/19 10:46 Freq: Status: Active Protocol: Document 05/06/19 14:12 AR (Rec: 05/06/19 15:17 AR [email or web address]) Self-Care/Home Management Treatment Activities Self-Care/Home Management Activities Pt and were encouraged to discuss Andrea yoga practice with recruiting scheduler to verify safety of this exercise. Pt and were educated on aerobic activity, use the the RPE scale d/t pt use of beta blockers, and cardiac rehabilitation. Pt and were educated on fall risks in the home d/t decreased spatial awareness and stated that they got rid of all rugs in the home. PT-OP-T Assessment and Plan Start: 05/06/19 10:46 Freq: Status: Active Protocol: Document 05/06/19 14:12 AR (Rec: 05/06/19 15:17 AR [email or web address]) Physical Therapy Assessment Rehab Potential Rehabilitation Potential Good Evaluation Complexity Number of Personal Factors/Comorbidities 3 or More Number of Body Systems Impaired 4 or More Clinical Presentation at Evaluation Evolving Impairments Impairments Balance Coordination Functional Activities Functional Mobility Gait ROM Strength Transfers Visual Motor Other Concerns Fall Risk Pt reports being off balance but has never fallen Goals Gait Impairment fall risk Short Term Goal (STG) Pt will demonstrate walking with smooth change in gait speed w/o loss of balance in order to ambulate safetly in the community. STG Duration 06/06/2019 Senior Care Goal (LTG) Pt will improve FGA score to 25/30 to decrease fall risk. LTG Duration 07/07/2019 Strength Impairment strength Short Term Goal (STG) Pt will be independent with HEP. STG Duration 06/06/2019 Sand Blaster Goal (LTG) Pt will demonstrate 5/5 LE and UE strength to be able to perform yoga series to prior level ability. LTG Duration 07/07/2019 Assessment Summary Assessment Pt presents 7 weeks post CABG, during which a L MCA CVA occurred. Pt's deficits include decreased functional mobility, slowed gait speed and poor spatial awareness which contribute to fall risk and safety. Gait assessment also indicates that patient is at a higher risk of falling and pt was especially challenged by walking with EC, NBOS and changing gait speeds . Pt has dec strength in UE and LE but only reports minimal impact of weakness on ADLs and recreational activities. Pt was able to follow simple commands, but some position were unable to be achieved d/t pt's confusion . Pt has been evaluated and will be treated by ST and OT. Outpatient PT to address decreased strength and balance deficits to help prevent falling and to return patient to prior level of activity. Physical Therapy Plan Frequency and Duration Frequency of Treatment 2x/Week Duration of Treatment 2 months Plan of Care Start Date 05/06/19 Plan of Care End Date 07/07/19 Therapeutic Interventions Therapeutic Interventions Aquatic Therapy Balance Training Coordination Training Gait Training Home Exercise Program Manual Therapy Neuromuscular Re-education Patient/Caregiver Education Self-Care/Home Management Sensory Integration Soft Tissue Mobilization Taping Therapeutic Activities Therapeutic Exercises Modalities Biofeedback Cold Pack/Ice Massage Hot Packs Next Visit Focus/Plan Next Note Type Treatment Note Next Visit Plan Assess sensory system, integrate RPE scale into therapy/exercises and educate patient on RPE use during Andrea yoga. Integrate dual task gait and balance training
--- NOTE | 2019-05-08 11:42 | PT.OTN ---
Current Diagnoses Cerebral infarction, unspecified (05/08/19) Difficulty in walking, not elsewhere classified (05/08/19) Weakness (05/08/19) Physical Therapy Treatment Note PT-OP-A Visit Information Start: 05/06/19 10:46 Freq: Status: Active Protocol: Document 05/08/19 11:31 SA (Rec: 05/08/19 11:41 SA [email or web address]) Out-Patient Physical Therapy Visit Information Visit Information Visit Type Treatment Note Visit Start Time 09:45 Visit Stop Time 10:30 Total Visit Minutes 45 Visit Number 2 Number of PRESCHOOL ADVISER Visits 1 PT-OP-B Current Condition Start: 05/06/19 10:46 Freq: Status: Active Protocol: Document 05/06/19 14:12 AR (Rec: 05/06/19 14:41 AR [email or web address]) Current Condition History of Current Condition Onset Date 03/03/2019 Current Complaints dec balance, sternal incision TTP, dec walking speed, dec aerobic capacity History of Current Condition Pt admitted for planned CABG on 03/03/2019 at [facility] in [place], [place]. Day 1 post-op, pt presented with slurred speech and word finding difficulties. CT scan showed L MCA CVA. Deficits include aphasia, generalized weakness, dec functional mobility, balance and right sided neglect. Pt received inpatient services (PT, OT, ST ) over 9 day period. Pt was then transfered to [facility] for 2 weeks of intensive therapy and then discharged home to receive home health PT , OT, ST through [facility]. Information taken from OT evaluation. Prior Treatments and Tests Inpatient OT, PT, ST. Home Health OT, PT, ST Future Testing and Treatments Planned possible referral to [facility] rehab Treatment Goals Patient/Caregiver Goals inc aerobic activity and capacity PT-OP-C Subjective Start: 05/06/19 10:46 Freq: Status: Active Protocol: Document 05/08/19 11:31 SA (Rec: 05/08/19 11:41 SA [email or web address]) OP-PT Subjective Patient Comments Patient Comments Pt with present for session, reports feeling fine after first visit and ready to work on balance and strength. PT-OP-D Balance Start: 05/06/19 10:46 Freq: Status: Active Protocol: Document 05/06/19 14:12 AR (Rec: 05/06/19 15:18 AR [email or web address]) Balance Tests Other Other Balance Tests Performed FGA: score 21/30 (22/30 indicates higher fall risk) PT-OP-G Mobility & Gait Start: 05/06/19 10:46 Freq: Status: Active Protocol: Document 05/06/19 14:12 AR (Rec: 05/06/19 14:41 AR [email or web address]) OP Mobility Evaluation Bed Mobility Rolling Independent, but had difficulty following directions to change position in bed Supine to and from Sit Indepenent. Able to follow simple command to sit up OP Gait Assessment Gait Gait Assistance Required: Independent Able to Maintain Weight Bearing Status Yes During Gait Assistive Devices Assistive Device None Gait Deviations General Gait Pattern Decreased Stride Length Decreased Feet Clearance Factors Limiting Gait Function Factors Limiting Gait Function Decreased Strength Difficulty Following Directions Incoordination Poor Balance Poor Safety Awareness Comments Gait Comments decreased safety awareness and dec spatial awareness. PT-OP-M Strength Start: 05/06/19 10:46 Freq: Status: Active Protocol: Document 05/06/19 14:12 AR (Rec: 05/06/19 15:17 AR [email or web address]) Shoulder Strength Shoulder Manual Muscle Testing Left Flexion 3+ Fair+ Abduction (C5) 3+ Fair+ External Rotation 4 Good Internal Rotation 4 Good Right Flexion 4 Good Abduction (C5) 3+ Fair+ External Rotation 3+ Fair+ Internal Rotation 4+ Good+ Wrist Strength Wrist Manual Muscle Testing Left Flexion (C7) 4+ Good+ Extension (C6) 4+ Good+ Right Flexion (C7) 4 Good Extension (C6) 4+ Good+ Hip Strength Hip Manual Muscle Testing Left Flexion (L2) 4- Good- Extension (S1) 4 Good Abduction 4 Good External Rotation 4+ Good+ Internal Rotation 4+ Good+ Right Flexion (L2) 4 Good Extension (S1) 4 Good External Rotation 4- Good- Internal Rotation 5 Normal Reason Not Measured Communication Comments unable to test hip abd, pt was unable to assume position necessary for testing d/t lack of understanding Knee Strength Knee Manual Muscle Testing Left Flexion (S2) 4+ Good+ Extension (L3) 5 Normal Right Flexion (S2) 4+ Good+ Extension (L3) 5 Normal Ankle/Foot Strength Ankle and Foot Manual Muscle Testing Left Dorsiflexion (L4) 4- Good- Plantarflexion (S1) 4+ Good+ Comments plantarflexion tested in sitting with manual resistance Right Dorsiflexion (L4) 4- Good- Plantarflexion (S1) 5 Normal Comments plantarflexion tested in sitting with manual resistance PT-OP-Q Treatments Start: 05/06/19 10:46 Freq: Status: Active Protocol: Document 05/08/19 11:31 SA (Rec: 05/08/19 11:41 [email or web address]) Cardio Equipment Recumbent Elliptical (Biodex) Duration (Minutes) 6 Resistance 4 Other Cues for RPE Gym Equipment Shuttle Balance Blue Reps/Duration 8 min Comments NBOS, Tandem, lateral and ant/ posterior weight shifts, EC Therapeutic Exercises Standing Exercises lunges Equipment Used blue foam Reps/Minutes 10 x each squats Equipment Used Blue foam Reps/Minutes 15x Neuro Re-Education Treatment Balance Activities SLS w/ BUE movements Reps/Duration 3 min Comments //bars High knee stepping Surface level Reps/Duration 6 lengths //bars Comments very slow Tandem walk Equipment //bars Reps/Duration 6 lengths Lateral step overs Surface level Equipment hurdles and step Reps/Duration 6 lengths Comments //bars Obstacle course Details blue & green foam/hurdles Surface in //bars Reps/Duration 8 lengths Comments focus on foot elevation, movement planning PT-OP-T Assessment and Plan Start: 05/06/19 10:46 Freq: Status: Active Protocol: Document 05/08/19 11:31 SA (Rec: 05/08/19 11:41 [email or web address]) Physical Therapy Assessment Assessment Summary Assessment Education with RPE, pt 02 sats 99% and HR 75 BPM with exercise and balance training. Pt tolerated balance challenges well with caregiver training for his on HEP and safe balance challenges at home. Physical Therapy Plan Next Visit Focus/Plan Next Note Type Treatment Note Next Visit Plan Assess sensory system, integrate RPE scale into therapy/exercises and educate patient on RPE use during Andrea yoga. Integrate dual task gait and balance training
--- NOTE | 2019-05-12 17:31 | PT.OTN ---
Current Diagnoses Cerebral infarction, unspecified (05/12/19) Difficulty in walking, not elsewhere classified (05/12/19) Weakness (05/12/19) Physical Therapy Treatment Note PT-OP-A Visit Information Start: 05/06/19 10:46 Freq: Status: Active Protocol: Document 05/12/19 16:45 DCW (Rec: 05/12/19 17:31 DCW [id number]) Out-Patient Physical Therapy Visit Information Visit Information Visit Type Treatment Note Visit Start Time 16:45 Visit Stop Time 17:30 Total Visit Minutes 45 Visit Number 3 Number of LOSS PREVENTION ASSOCIATE Visits 0 Evaluation Information Evaluation Date 05/06/19 PT-OP-B Current Condition Start: 05/06/19 10:46 Freq: Status: Active Protocol: Document 05/06/19 14:12 AR (Rec: 05/06/19 14:41 AR [email or web address]) Current Condition History of Current Condition Onset Date 03/03/2019 Current Complaints dec balance, sternal incision TTP, dec walking speed, dec aerobic capacity History of Current Condition Pt admitted for planned CABG on 03/03/2019 at [facility] in [place], [place]. Day 1 post-op, pt presented with slurred speech and word finding difficulties. CT scan showed L MCA CVA. Deficits include aphasia, generalized weakness, dec functional mobility, balance and right sided neglect. Pt received inpatient services (PT, OT, ST ) over 9 day period. Pt was then transfered to [facility] for 2 weeks of intensive therapy and then discharged home to receive home health PT , OT, ST through [facility]. Information taken from OT evaluation. Prior Treatments and Tests Inpatient OT, PT, ST. Home Health OT, PT, ST Future Testing and Treatments Planned possible referral to [facility] rehab Treatment Goals Patient/Caregiver Goals inc aerobic activity and capacity PT-OP-C Subjective Start: 05/06/19 10:46 Freq: Status: Active Protocol: Document 05/12/19 16:45 DCW (Rec: 05/12/19 17:31 DCW [id number]) OP-PT Subjective Patient Comments Patient Comments I'd love to improve my balance. PT-OP-D Balance Start: 05/06/19 10:46 Freq: Status: Active Protocol: Document 05/06/19 14:12 AR (Rec: 05/06/19 15:18 AR [email or web address]) Balance Tests Other Other Balance Tests Performed FGA: score /30 (22/30 indicates higher fall risk) PT-OP-G Mobility & Gait Start: 05/06/19 10:46 Freq: Status: Active Protocol: Document 05/06/19 14:12 AR (Rec: 05/06/19 14:41 AR [email or web address]) OP Mobility Evaluation Bed Mobility Rolling Independent, but had difficulty following directions to change position in bed Supine to and from Sit Indepenent. Able to follow simple command to sit up OP Gait Assessment Gait Gait Assistance Required: Independent Able to Maintain Weight Bearing Status Yes During Gait Assistive Devices Assistive Device None Gait Deviations General Gait Pattern Decreased Stride Length Decreased Feet Clearance Factors Limiting Gait Function Factors Limiting Gait Function Decreased Strength Difficulty Following Directions Incoordination Poor Balance Poor Safety Awareness Comments Gait Comments decreased safety awareness and dec spatial awareness. PT-OP-M Strength Start: 05/06/19 10:46 Freq: Status: Active Protocol: Document 05/06/19 14:12 AR (Rec: 05/06/19 15:17 AR [email or web address]) Shoulder Strength Shoulder Manual Muscle Testing Left Flexion 3+ Fair+ Abduction (C5) 3+ Fair+ External Rotation 4 Good Internal Rotation 4 Good Right Flexion 4 Good Abduction (C5) 3+ Fair+ External Rotation 3+ Fair+ Internal Rotation 4+ Good+ Wrist Strength Wrist Manual Muscle Testing Left Flexion (C7) 4+ Good+ Extension (C6) 4+ Good+ Right Flexion (C7) 4 Good Extension (C6) 4+ Good+ Hip Strength Hip Manual Muscle Testing Left Flexion (L2) 4- Good- Extension (S1) 4 Good Abduction 4 Good External Rotation 4+ Good+ Internal Rotation 4+ Good+ Right Flexion (L2) 4 Good Extension (S1) 4 Good External Rotation 4- Good- Internal Rotation 5 Normal Reason Not Measured Communication Comments unable to test hip abd, pt was unable to assume position necessary for testing d/t lack of understanding Knee Strength Knee Manual Muscle Testing Left Flexion (S2) 4+ Good+ Extension (L3) 5 Normal Right Flexion (S2) 4+ Good+ Extension (L3) 5 Normal Ankle/Foot Strength Ankle and Foot Manual Muscle Testing Left Dorsiflexion (L4) 4- Good- Plantarflexion (S1) 4+ Good+ Comments plantarflexion tested in sitting with manual resistance Right Dorsiflexion (L4) 4- Good- Plantarflexion (S1) 5 Normal Comments plantarflexion tested in sitting with manual resistance PT-OP-Q Treatments Start: 05/06/19 10:46 Freq: Status: Active Protocol: Document 05/12/19 16:45 DCW (Rec: 05/12/19 17:31 DCW [id number]) Cardio Equipment Recumbent Elliptical (Biodex) Duration (Minutes) 6 Resistance 4 Seat Position 11 Other Cues for RPE Gym Equipment Shuttle Recovery Unilateral Squats Resistance 62# Shuttle Recovery Platform Stable Bilateral Squats Resistance 125# Shuttle Recovery Platform Stable Shuttle Balance Red Details Wide YURI, Staggered Stance, Lateral Weight Shifts Therapeutic Exercises Other Exercises Resisted Ambulation Other Exercise Name Fwd, Bkwd, Side-stepping Resistance Green Equipment Used T-band Neuro Re-Education Treatment Balance Activities Foam Stance Details X1 viewing, Saccades Surface Ortiz Foam SLS w/ BUE movements Details SLS Tandem walk Equipment //bars Reps/Duration 6 lengths PT-OP-T Assessment and Plan Start: 05/06/19 10:46 Freq: Status: Active Protocol: Document 05/12/19 16:45 DCW (Rec: 05/12/19 17:31 DCW [id number]) Physical Therapy Assessment Impairments Impairments Balance Coordination Functional Activities Functional Mobility Gait ROM Strength Transfers Visual Motor Goals Gait Impairment fall risk Short Term Goal (STG) Pt will demonstrate walking with smooth change in gait speed w/o loss of balance in order to ambulate safetly in the community. STG Duration 06/06/2019 Care Home Goal (LTG) Pt will improve FGA score to 25/30 to decrease fall risk. LTG Duration 07/07/2019 Strength Impairment strength Short Term Goal (STG) Pt will be independent with HEP. STG Duration 06/06/2019 Care Home Goal (LTG) Pt will demonstrate 5/5 LE and UE strength to be able to perform yoga series to prior level ability. LTG Duration 07/07/2019 Assessment Summary Assessment Pt did very well today, no complaints of fatigue or requests for rest breaks. Pt demonstrates improved ability to respond to instruction, per his . Physical Therapy Plan Frequency and Duration Frequency of Treatment 2x/Week Duration of Treatment 2 months Plan of Care Start Date 05/06/19 Plan of Care End Date 07/07/19 Therapeutic Interventions Therapeutic Interventions Aquatic Therapy Balance Training Coordination Training Gait Training Home Exercise Program Manual Therapy Neuromuscular Re-education Patient/Caregiver Education Self-Care/Home Management Sensory Integration Soft Tissue Mobilization Taping Therapeutic Activities Therapeutic Exercises Modalities Biofeedback Cold Pack/Ice Massage Hot Packs Next Visit Focus/Plan Next Note Type Treatment Note Next Visit Plan Continue to increase balance difficulty, challenge ability to follow direction
--- NOTE | 2019-05-14 16:03 | PT.OTN ---
Current Diagnoses Cerebral infarction, unspecified (05/14/19) Difficulty in walking, not elsewhere classified (05/14/19) Weakness (05/14/19) Physical Therapy Treatment Note PT-OP-A Visit Information Start: 05/06/19 10:46 Freq: Status: Active Protocol: Document 05/14/19 15:15 DCW (Rec: 05/14/19 16:03 DCW [id number]) Out-Patient Physical Therapy Visit Information Visit Information Visit Type Treatment Note Visit Start Time 15:15 Visit Stop Time 16:00 Total Visit Minutes 45 Visit Number 4 Number of DROP PRESS HAND Visits 0 Evaluation Information Evaluation Date 05/06/19 PT-OP-B Current Condition Start: 05/06/19 10:46 Freq: Status: Active Protocol: Document 05/06/19 14:12 AR (Rec: 05/06/19 14:41 AR [email or web address]) Current Condition History of Current Condition Onset Date 03/03/2019 Current Complaints dec balance, sternal incision TTP, dec walking speed, dec aerobic capacity History of Current Condition Pt admitted for planned CABG on 03/03/2019 at [facility] in [place], [place]. Day 1 post-op, pt presented with slurred speech and word finding difficulties. CT scan showed L MCA CVA. Deficits include aphasia, generalized weakness, dec functional mobility, balance and right sided neglect. Pt received inpatient services (PT, OT, ST ) over 9 day period. Pt was then transfered to [facility] for 2 weeks of intensive therapy and then discharged home to receive home health PT , OT, ST through [facility]. Information taken from OT evaluation. Prior Treatments and Tests Inpatient OT, PT, ST. Home Health OT, PT, ST Future Testing and Treatments Planned possible referral to [facility] rehab Treatment Goals Patient/Caregiver Goals inc aerobic activity and capacity PT-OP-C Subjective Start: 05/06/19 10:46 Freq: Status: Active Protocol: Document 05/14/19 15:15 DCW (Rec: 05/14/19 16:03 DCW [id number]) OP-PT Subjective Patient Comments Patient Comments Pt reports he hasn't had any problems with anything done in therapy so far. PT-OP-D Balance Start: 05/06/19 10:46 Freq: Status: Active Protocol: Document 05/06/19 14:12 AR (Rec: 05/06/19 15:18 AR [email or web address]) Balance Tests Other Other Balance Tests Performed FGA: score (/30 indicates higher fall risk) PT-OP-G Mobility & Gait Start: 05/06/19 10:46 Freq: Status: Active Protocol: Document 05/06/19 14:12 AR (Rec: 05/06/19 14:41 AR [email or web address]) OP Mobility Evaluation Bed Mobility Rolling Independent, but had difficulty following directions to change position in bed Supine to and from Sit Indepenent. Able to follow simple command to sit up OP Gait Assessment Gait Gait Assistance Required: Independent Able to Maintain Weight Bearing Status Yes During Gait Assistive Devices Assistive Device None Gait Deviations General Gait Pattern Decreased Stride Length Decreased Feet Clearance Factors Limiting Gait Function Factors Limiting Gait Function Decreased Strength Difficulty Following Directions Incoordination Poor Balance Poor Safety Awareness Comments Gait Comments decreased safety awareness and dec spatial awareness. PT-OP-M Strength Start: 05/06/19 10:46 Freq: Status: Active Protocol: Document 05/06/19 14:12 AR (Rec: 05/06/19 15:17 AR [email or web address]) Shoulder Strength Shoulder Manual Muscle Testing Left Flexion 3+ Fair+ Abduction (C5) 3+ Fair+ External Rotation 4 Good Internal Rotation 4 Good Right Flexion 4 Good Abduction (C5) 3+ Fair+ External Rotation 3+ Fair+ Internal Rotation 4+ Good+ Wrist Strength Wrist Manual Muscle Testing Left Flexion (C7) 4+ Good+ Extension (C6) 4+ Good+ Right Flexion (C7) 4 Good Extension (C6) 4+ Good+ Hip Strength Hip Manual Muscle Testing Left Flexion (L2) 4- Good- Extension (S1) 4 Good Abduction 4 Good External Rotation 4+ Good+ Internal Rotation 4+ Good+ Right Flexion (L2) 4 Good Extension (S1) 4 Good External Rotation 4- Good- Internal Rotation 5 Normal Reason Not Measured Communication Comments unable to test hip abd, pt was unable to assume position necessary for testing d/t lack of understanding Knee Strength Knee Manual Muscle Testing Left Flexion (S2) 4+ Good+ Extension (L3) 5 Normal Right Flexion (S2) 4+ Good+ Extension (L3) 5 Normal Ankle/Foot Strength Ankle and Foot Manual Muscle Testing Left Dorsiflexion (L4) 4- Good- Plantarflexion (S1) 4+ Good+ Comments plantarflexion tested in sitting with manual resistance Right Dorsiflexion (L4) 4- Good- Plantarflexion (S1) 5 Normal Comments plantarflexion tested in sitting with manual resistance PT-OP-Q Treatments Start: 05/06/19 10:46 Freq: Status: Active Protocol: Document 05/14/19 15:15 DCW (Rec: 05/14/19 16:03 DCW [id number]) Cardio Equipment Recumbent Stepper (Sci-Fit) Duration (Minutes) 6 Resistance 3 Seat Position 11 Gym Equipment Shuttle Balance Red Details Wide YURI, Staggered Stance Therapeutic Exercises Standing Exercises lunges Equipment Used blue foam Reps/Minutes 10 x each squats Equipment Used Blue foam Reps/Minutes 15x Other Exercises Resisted Ambulation Other Exercise Name Fwd, Bkwd, Side-stepping Resistance Green Equipment Used T-band Neuro Re-Education Treatment Balance Activities Amb /c head turns Details Amb /c head turns Comments Horizontal/Vertical Foam Stance Details X1 viewing, Saccades Surface Ortiz Foam Tandem walk Equipment //bars Reps/Duration 6 lengths PT-OP-T Assessment and Plan Start: 05/06/19 10:46 Freq: Status: Active Protocol: Document 05/14/19 15:15 DCW (Rec: 05/14/19 16:03 DCW [id number]) Physical Therapy Assessment Impairments Impairments Balance Coordination Functional Activities Functional Mobility Gait ROM Strength Transfers Visual Motor Goals Gait Impairment fall risk Short Term Goal (STG) Pt will demonstrate walking with smooth change in gait speed w/o loss of balance in order to ambulate safetly in the community. STG Duration 06/06/2019 [facility] Goal (LTG) Pt will improve FGA score to 25/30 to decrease fall risk. LTG Duration 07/07/2019 Strength Impairment strength Short Term Goal (STG) Pt will be independent with HEP. STG Duration 06/06/2019 [facility] Goal (LTG) Pt will demonstrate 5/5 LE and UE strength to be able to perform yoga series to prior level ability. LTG Duration 07/07/2019 Assessment Summary Assessment Pt required fewer reminders and instructions, able to follow through with instructions remembered from his last session. Physical Therapy Plan Frequency and Duration Frequency of Treatment 2x/Week Duration of Treatment 2 months Plan of Care Start Date 05/06/19 Plan of Care End Date 07/07/19 Therapeutic Interventions Therapeutic Interventions Aquatic Therapy Balance Training Coordination Training Gait Training Home Exercise Program Manual Therapy Neuromuscular Re-education Patient/Caregiver Education Self-Care/Home Management Sensory Integration Soft Tissue Mobilization Taping Therapeutic Activities Therapeutic Exercises Modalities Biofeedback Cold Pack/Ice Massage Hot Packs Next Visit Focus/Plan Next Note Type Treatment Note Next Visit Plan Continue to increase balance difficulty, challenge ability to follow direction
--- NOTE | 2019-05-19 16:00 | PT.OTN ---
Current Diagnoses Cerebral infarction, unspecified (05/19/19) Difficulty in walking, not elsewhere classified (05/19/19) Weakness (05/19/19) Physical Therapy Treatment Note PT-OP-A Visit Information Start: 05/06/19 10:46 Freq: Status: Active Protocol: Document 05/19/19 15:15 DCW (Rec: 05/19/19 16:00 DCW [id number]) Out-Patient Physical Therapy Visit Information Visit Information Visit Type Treatment Note Visit Start Time 15:15 Visit Stop Time 16:00 Total Visit Minutes 45 Visit Number 5 Number of GAS ENGINE MECHANIC Visits 0 Evaluation Information Evaluation Date 05/06/19 PT-OP-B Current Condition Start: 05/06/19 10:46 Freq: Status: Active Protocol: Document 05/06/19 14:12 AR (Rec: 05/06/19 14:41 AR [email or web address]) Current Condition History of Current Condition Onset Date 03/03/2019 Current Complaints dec balance, sternal incision TTP, dec walking speed, dec aerobic capacity History of Current Condition Pt admitted for planned CABG on 03/03/2019 at [facility] in [place], [place]. Day 1 post-op, pt presented with slurred speech and word finding difficulties. CT scan showed L MCA CVA. Deficits include aphasia, generalized weakness, dec functional mobility, balance and right sided neglect. Pt received inpatient services (PT, OT, ST ) over 9 day period. Pt was then transfered to [facility] for 2 weeks of intensive therapy and then discharged home to receive home health PT , OT, ST through [facility]. Information taken from OT evaluation. Prior Treatments and Tests Inpatient OT, PT, ST. Home Health OT, PT, ST Future Testing and Treatments Planned possible referral to [facility] rehab Treatment Goals Patient/Caregiver Goals inc aerobic activity and capacity PT-OP-C Subjective Start: 05/06/19 10:46 Freq: Status: Active Protocol: Document 05/19/19 15:15 DCW (Rec: 05/19/19 16:00 DCW [id number]) OP-PT Subjective Patient Comments Patient Comments I got pretty good range of motion, my main problem just still seems to be balance. PT-OP-D Balance Start: 05/06/19 10:46 Freq: Status: Active Protocol: Document 05/06/19 14:12 AR (Rec: 05/06/19 15:18 AR [email or web address]) Balance Tests Other Other Balance Tests Performed FGA: score (/30 indicates higher fall risk) PT-OP-G Mobility & Gait Start: 05/06/19 10:46 Freq: Status: Active Protocol: Document 05/06/19 14:12 AR (Rec: 05/06/19 14:41 AR [email or web address]) OP Mobility Evaluation Bed Mobility Rolling Independent, but had difficulty following directions to change position in bed Supine to and from Sit Indepenent. Able to follow simple command to sit up OP Gait Assessment Gait Gait Assistance Required: Independent Able to Maintain Weight Bearing Status Yes During Gait Assistive Devices Assistive Device None Gait Deviations General Gait Pattern Decreased Stride Length Decreased Feet Clearance Factors Limiting Gait Function Factors Limiting Gait Function Decreased Strength Difficulty Following Directions Incoordination Poor Balance Poor Safety Awareness Comments Gait Comments decreased safety awareness and dec spatial awareness. PT-OP-M Strength Start: 05/06/19 10:46 Freq: Status: Active Protocol: Document 05/06/19 14:12 AR (Rec: 05/06/19 15:17 AR [email or web address]) Shoulder Strength Shoulder Manual Muscle Testing Left Flexion 3+ Fair+ Abduction (C5) 3+ Fair+ External Rotation 4 Good Internal Rotation 4 Good Right Flexion 4 Good Abduction (C5) 3+ Fair+ External Rotation 3+ Fair+ Internal Rotation 4+ Good+ Wrist Strength Wrist Manual Muscle Testing Left Flexion (C7) 4+ Good+ Extension (C6) 4+ Good+ Right Flexion (C7) 4 Good Extension (C6) 4+ Good+ Hip Strength Hip Manual Muscle Testing Left Flexion (L2) 4- Good- Extension (S1) 4 Good Abduction 4 Good External Rotation 4+ Good+ Internal Rotation 4+ Good+ Right Flexion (L2) 4 Good Extension (S1) 4 Good External Rotation 4- Good- Internal Rotation 5 Normal Reason Not Measured Communication Comments unable to test hip abd, pt was unable to assume position necessary for testing d/t lack of understanding Knee Strength Knee Manual Muscle Testing Left Flexion (S2) 4+ Good+ Extension (L3) 5 Normal Right Flexion (S2) 4+ Good+ Extension (L3) 5 Normal Ankle/Foot Strength Ankle and Foot Manual Muscle Testing Left Dorsiflexion (L4) 4- Good- Plantarflexion (S1) 4+ Good+ Comments plantarflexion tested in sitting with manual resistance Right Dorsiflexion (L4) 4- Good- Plantarflexion (S1) 5 Normal Comments plantarflexion tested in sitting with manual resistance PT-OP-Q Treatments Start: 05/06/19 10:46 Freq: Status: Active Protocol: Document 05/19/19 15:15 DCW (Rec: 05/19/19 16:00 DCW [id number]) Cardio Equipment Recumbent Elliptical (Biodex) Duration (Minutes) 6 Resistance 5 Seat Position 10 Gym Equipment Shuttle Balance Red Details Wide YURI, Staggered Stance Blue Details Ball toss @ rebounder Therapeutic Exercises Other Exercises Resisted Ambulation Other Exercise Name Fwd, Bkwd, Side-stepping Resistance Blue Equipment Used T-band Neuro Re-Education Treatment Balance Activities Balloon Volley Details Side-stepping /c balloon volley Foam Stance Details Tandem Stance, NBOS /c EC Surface Ortiz Foam SLS w/ BUE movements Details SLS Surface Ortiz Foam Tandem walk Details Tandem walk /c head turns Equipment //bars Reps/Duration 6 lengths PT-OP-T Assessment and Plan Start: 05/06/19 10:46 Freq: Status: Active Protocol: Document 05/19/19 15:15 DCW (Rec: 05/19/19 16:00 DCW [id number]) Physical Therapy Assessment Impairments Impairments Balance Coordination Functional Activities Functional Mobility Gait ROM Strength Transfers Visual Motor Goals Gait Impairment fall risk Short Term Goal (STG) Pt will demonstrate walking with smooth change in gait speed w/o loss of balance in order to ambulate safetly in the community. STG Duration 06/06/2019 Skilled Nursing Goal (LTG) Pt will improve FGA score to 25/30 to decrease fall risk. LTG Duration 07/07/2019 Strength Impairment strength Short Term Goal (STG) Pt will be independent with HEP. STG Duration 06/06/2019 Proofsheet Corrector Goal (LTG) Pt will demonstrate 5/5 LE and UE strength to be able to perform yoga series to prior level ability. LTG Duration 07/07/2019 Assessment Summary Assessment Pt continues to progress greatly, shows better stability on the Shuttle Balance, and rarely needs repeated instructions. Physical Therapy Plan Frequency and Duration Frequency of Treatment 2x/Week Duration of Treatment 2 months Plan of Care Start Date 05/06/19 Plan of Care End Date 07/07/19 Therapeutic Interventions Therapeutic Interventions Aquatic Therapy Balance Training Coordination Training Gait Training Home Exercise Program Manual Therapy Neuromuscular Re-education Patient/Caregiver Education Self-Care/Home Management Sensory Integration Soft Tissue Mobilization Taping Therapeutic Activities Therapeutic Exercises Modalities Biofeedback Cold Pack/Ice Massage Hot Packs Next Visit Focus/Plan Next Note Type Treatment Note Next Visit Plan Continue to increase balance difficulty, challenge ability to follow direction
--- NOTE | 2019-05-21 16:02 | PT.OTN ---
Current Diagnoses Cerebral infarction, unspecified (05/21/19) Difficulty in walking, not elsewhere classified (05/21/19) Weakness (05/21/19) Physical Therapy Treatment Note PT-OP-A Visit Information Start: 05/06/19 10:46 Freq: Status: Active Protocol: Document 05/21/19 15:18 DCW (Rec: 05/21/19 16:01 DC [id number]) Out-Patient Physical Therapy Visit Information Visit Information Visit Type Treatment Note Visit Start Time 15:18 Visit Stop Time 16:00 Total Visit Minutes 42 Visit Number 6 Number of DEVELOPMENT MGR Visits 0 Evaluation Information Evaluation Date 05/06/19 PT-OP-B Current Condition Start: 05/06/19 10:46 Freq: Status: Active Protocol: Document 05/06/19 14:12 AR (Rec: 05/06/19 14:41 AR [email or web address]) Current Condition History of Current Condition Onset Date 03/03/2019 Current Complaints dec balance, sternal incision TTP, dec walking speed, dec aerobic capacity History of Current Condition Pt admitted for planned CABG on 03/03/2019 at [facility] in [place], [place]. Day 1 post-op, pt presented with slurred speech and word finding difficulties. CT scan showed L MCA CVA. Deficits include aphasia, generalized weakness, dec functional mobility, balance and right sided neglect. Pt received inpatient services (PT, OT, ST ) over 9 day period. Pt was then transfered to [facility] for 2 weeks of intensive therapy and then discharged home to receive home health PT , OT, ST through [facility]. Information taken from OT evaluation. Prior Treatments and Tests Inpatient OT, PT, ST. Home Health OT, PT, ST Future Testing and Treatments Planned possible referral to [facility] Treatment Goals Patient/Caregiver Goals inc aerobic activity and capacity PT-OP-C Subjective Start: 05/06/19 10:46 Freq: Status: Active Protocol: Document 05/21/19 15:18 DCW (Rec: 05/21/19 16:01 DCW [id number]) OP-PT Subjective Patient Comments Patient Comments Pt still has no complaints or concerns, feels things are going quite well. PT-OP-D Balance Start: 05/06/19 10:46 Freq: Status: Active Protocol: Document 05/06/19 14:12 AR (Rec: 05/06/19 15:18 AR [email or web address]) Balance Tests Other Other Balance Tests Performed FGA: score (/30 indicates higher fall risk) PT-OP-G Mobility & Gait Start: 05/06/19 10:46 Freq: Status: Active Protocol: Document 05/06/19 14:12 AR (Rec: 05/06/19 14:41 AR [email or web address]) OP Mobility Evaluation Bed Mobility Rolling Independent, but had difficulty following directions to change position in bed Supine to and from Sit Indepenent. Able to follow simple command to sit up OP Gait Assessment Gait Gait Assistance Required: Independent Able to Maintain Weight Bearing Status Yes During Gait Assistive Devices Assistive Device None Gait Deviations General Gait Pattern Decreased Stride Length Decreased Feet Clearance Factors Limiting Gait Function Factors Limiting Gait Function Decreased Strength Difficulty Following Directions Incoordination Poor Balance Poor Safety Awareness Comments Gait Comments decreased safety awareness and dec spatial awareness. PT-OP-M Strength Start: 05/06/19 10:46 Freq: Status: Active Protocol: Document 05/06/19 14:12 AR (Rec: 05/06/19 15:17 AR [email or web address]) Shoulder Strength Shoulder Manual Muscle Testing Left Flexion 3+ Fair+ Abduction (C5) 3+ Fair+ External Rotation 4 Good Internal Rotation 4 Good Right Flexion 4 Good Abduction (C5) 3+ Fair+ External Rotation 3+ Fair+ Internal Rotation 4+ Good+ Wrist Strength Wrist Manual Muscle Testing Left Flexion (C7) 4+ Good+ Extension (C6) 4+ Good+ Right Flexion (C7) 4 Good Extension (C6) 4+ Good+ Hip Strength Hip Manual Muscle Testing Left Flexion (L2) 4- Good- Extension (S1) 4 Good Abduction 4 Good External Rotation 4+ Good+ Internal Rotation 4+ Good+ Right Flexion (L2) 4 Good Extension (S1) 4 Good External Rotation 4- Good- Internal Rotation 5 Normal Reason Not Measured Communication Comments unable to test hip abd, pt was unable to assume position necessary for testing d/t lack of understanding Knee Strength Knee Manual Muscle Testing Left Flexion (S2) 4+ Good+ Extension (L3) 5 Normal Right Flexion (S2) 4+ Good+ Extension (L3) 5 Normal Ankle/Foot Strength Ankle and Foot Manual Muscle Testing Left Dorsiflexion (L4) 4- Good- Plantarflexion (S1) 4+ Good+ Comments plantarflexion tested in sitting with manual resistance Right Dorsiflexion (L4) 4- Good- Plantarflexion (S1) 5 Normal Comments plantarflexion tested in sitting with manual resistance PT-OP-Q Treatments Start: 05/06/19 10:46 Freq: Status: Active Protocol: Document 05/21/19 15:18 DCW (Rec: 05/21/19 16:01 DCW [id number]) Cardio Equipment Recumbent Stepper (Sci-Fit) Duration (Minutes) 6 Resistance 4 Seat Position 10 Gym Equipment Shuttle Balance Blue Details Ball toss @ rebounder, Wide YURI, Staggered Stance Therapeutic Exercises Standing Exercises lunges Equipment Used blue foam Reps/Minutes 10 x each squats Equipment Used Blue foam Reps/Minutes 15x Other Exercises Resisted Ambulation Other Exercise Name Fwd, Bkwd, Side-stepping Resistance Blue Equipment Used T-band Neuro Re-Education Treatment Balance Activities Tandem walk Details Tandem walk /c ball/cone transfers PT-OP-T Assessment and Plan Start: 05/06/19 10:46 Freq: Status: Active Protocol: Document 05/21/19 15:18 DCW (Rec: 05/21/19 16:01 DCW [id number]) Physical Therapy Assessment Impairments Impairments Balance Coordination Functional Activities Functional Mobility Gait ROM Strength Transfers Visual Motor Goals Gait Impairment fall risk Short Term Goal (STG) Pt will demonstrate walking with smooth change in gait speed w/o loss of balance in order to ambulate safetly in the community. STG Duration 06/06/2019 Flat Polisher Goal (LTG) Pt will improve FGA score to 25/30 to decrease fall risk. LTG Duration 07/07/2019 Strength Impairment strength Short Term Goal (STG) Pt will be independent with HEP. STG Duration 06/06/2019 Flat Polisher Goal (LTG) Pt will demonstrate 5/5 LE and UE strength to be able to perform yoga series to prior level ability. LTG Duration 07/07/2019 Assessment Summary Assessment Pt continues to show progress with strength and balance, tolerated treatment well today . Physical Therapy Plan Frequency and Duration Frequency of Treatment 2x/Week Duration of Treatment 2 months Plan of Care Start Date 05/06/19 Plan of Care End Date 07/07/19 Therapeutic Interventions Therapeutic Interventions Aquatic Therapy Balance Training Coordination Training Gait Training Home Exercise Program Manual Therapy Neuromuscular Re-education Patient/Caregiver Education Self-Care/Home Management Sensory Integration Soft Tissue Mobilization Taping Therapeutic Activities Therapeutic Exercises Modalities Biofeedback Cold Pack/Ice Massage Hot Packs Next Visit Focus/Plan Next Note Type Treatment Note Next Visit Plan Continue to increase balance difficulty, challenge ability to follow direction
--- NOTE | 2019-06-04 16:49 | PT.OTN ---
Current Diagnoses Cerebral infarction, unspecified (06/04/19) Difficulty in walking, not elsewhere classified (06/04/19) Weakness (06/04/19) Physical Therapy Treatment Note PT-OP-A Visit Information Start: 05/06/19 10:46 Freq: Status: Active Protocol: Document 06/04/19 16:42 GGD (Rec: 06/04/19 16:49 GGD [email or web address]) Out-Patient Physical Therapy Visit Information Visit Information Visit Type Treatment Note Visit Start Time 15:20 Visit Stop Time 16:00 Total Visit Minutes 40 Visit Number 7 Number of STRUCTURAL STEEL TRADES WORKER Visits 1 Evaluation Information Evaluation Date 05/06/19 PT-OP-B Current Condition Start: 05/06/19 10:46 Freq: Status: Active Protocol: Document 05/06/19 14:12 AR (Rec: 05/06/19 14:41 AR [email or web address]) Current Condition History of Current Condition Onset Date 03/03/2019 Current Complaints dec balance, sternal incision TTP, dec walking speed, dec aerobic capacity History of Current Condition Pt admitted for planned CABG on 03/03/2019 at [facility] in [place], [place]. Day 1 post-op, pt presented with slurred speech and word finding difficulties. CT scan showed L MCA CVA. Deficits include aphasia, generalized weakness, dec functional mobility, balance and right sided neglect. Pt received inpatient services (PT, OT, ST ) over 9 day period. Pt was then transfered to [facility] for 2 weeks of intensive therapy and then discharged home to receive home health PT , OT, ST through [facility]. Information taken from OT evaluation. Prior Treatments and Tests Inpatient OT, PT, ST. Home Health OT, PT, ST Future Testing and Treatments Planned possible referral to [facility] rehab Treatment Goals Patient/Caregiver Goals inc aerobic activity and capacity PT-OP-C Subjective Start: 05/06/19 10:46 Freq: Status: Active Protocol: Document 06/04/19 16:42 GGD (Rec: 06/04/19 16:49 GGD [email or web address]) OP-PT Subjective Patient Comments Patient Comments Pt states his balance is doing better. PT-OP-D Balance Start: 05/06/19 10:46 Freq: Status: Active Protocol: Document 05/06/19 14:12 AR (Rec: 05/06/19 15:18 AR [email or web address]) Balance Tests Other Other Balance Tests Performed FGA: score 21/30 (22/30 indicates higher fall risk) PT-OP-G Mobility & Gait Start: 05/06/19 10:46 Freq: Status: Active Protocol: Document 05/06/19 14:12 AR (Rec: 05/06/19 14:41 AR [email or web address]) OP Mobility Evaluation Bed Mobility Rolling Independent, but had difficulty following directions to change position in bed Supine to and from Sit Indepenent. Able to follow simple command to sit up OP Gait Assessment Gait Gait Assistance Required: Independent Able to Maintain Weight Bearing Status Yes During Gait Assistive Devices Assistive Device None Gait Deviations General Gait Pattern Decreased Stride Length Decreased Feet Clearance Factors Limiting Gait Function Factors Limiting Gait Function Decreased Strength Difficulty Following Directions Incoordination Poor Balance Poor Safety Awareness Comments Gait Comments decreased safety awareness and dec spatial awareness. PT-OP-M Strength Start: 05/06/19 10:46 Freq: Status: Active Protocol: Document 05/06/19 14:12 AR (Rec: 05/06/19 15:17 AR [email or web address]) Shoulder Strength Shoulder Manual Muscle Testing Left Flexion 3+ Fair+ Abduction (C5) 3+ Fair+ External Rotation 4 Good Internal Rotation 4 Good Right Flexion 4 Good Abduction (C5) 3+ Fair+ External Rotation 3+ Fair+ Internal Rotation 4+ Good+ Wrist Strength Wrist Manual Muscle Testing Left Flexion (C7) 4+ Good+ Extension (C6) 4+ Good+ Right Flexion (C7) 4 Good Extension (C6) 4+ Good+ Hip Strength Hip Manual Muscle Testing Left Flexion (L2) 4- Good- Extension (S1) 4 Good Abduction 4 Good External Rotation 4+ Good+ Internal Rotation 4+ Good+ Right Flexion (L2) 4 Good Extension (S1) 4 Good External Rotation 4- Good- Internal Rotation 5 Normal Reason Not Measured Communication Comments unable to test hip abd, pt was unable to assume position necessary for testing d/t lack of understanding Knee Strength Knee Manual Muscle Testing Left Flexion (S2) 4+ Good+ Extension (L3) 5 Normal Right Flexion (S2) 4+ Good+ Extension (L3) 5 Normal Ankle/Foot Strength Ankle and Foot Manual Muscle Testing Left Dorsiflexion (L4) 4- Good- Plantarflexion (S1) 4+ Good+ Comments plantarflexion tested in sitting with manual resistance Right Dorsiflexion (L4) 4- Good- Plantarflexion (S1) 5 Normal Comments plantarflexion tested in sitting with manual resistance PT-OP-Q Treatments Start: 05/06/19 10:46 Freq: Status: Active Protocol: Document 06/04/19 16:42 GGD (Rec: 06/04/19 16:49 GGD [email or web address]) Cardio Equipment Recumbent Stepper (Sci-Fit) Duration (Minutes) 6 Resistance 4 Seat Position 10 Gym Equipment Shuttle Balance Blue Details Ball toss @ rebounder, Wide YURI, Staggered Stance, NBOS Comments mini squats Gait Training Gait Activity 1 Description grapevine Level of Assistance CGA Neuro Re-Education Treatment Balance Activities Foam Stance Details Tandem Stance, NBOS /c EC, Headturns Surface Ortiz Foam SLS w/ BUE movements Details SLS Surface Ortiz Foam Tandem walk Details Tandem walk /c ball/cone transfers Lateral step overs Details side step and forward Surface level Equipment hurdles and foam Reps/Duration 6 lengths PT-OP-T Assessment and Plan Start: 05/06/19 10:46 Freq: Status: Active Protocol: Document 06/04/19 16:42 GGD (Rec: 06/04/19 16:49 GGD [email or web address]) Physical Therapy Assessment Assessment Summary Assessment Pt LOB with SLS with right > left LE. He had difficultly with tandem stance on foam. Physical Therapy Plan Frequency and Duration Frequency of Treatment 2x/Week Duration of Treatment 2 months Plan of Care Start Date 05/06/19 Plan of Care End Date 07/07/19 Next Visit Focus/Plan Next Note Type Treatment Note Next Visit Plan Continue to increase balance difficulty, challenge ability to follow direction
--- NOTE | 2019-06-08 15:54 | PT.OTN ---
Current Diagnoses Cerebral infarction, unspecified (06/08/19) Difficulty in walking, not elsewhere classified (06/08/19) Weakness (06/08/19) Physical Therapy Treatment Note PT-OP-A Visit Information Start: 05/06/19 10:46 Freq: Status: Active Protocol: Document 06/08/19 13:45 AMB (Rec: 06/08/19 15:53 AMB [email or web address]) Out-Patient Physical Therapy Visit Information Visit Information Visit Type Treatment Note Visit Start Time 13:45 Visit Stop Time 14:29 Total Visit Minutes 44 Visit Number 7 Number of EVP GENERAL COUNSEL Visits 0 PT-OP-B Current Condition Start: 05/06/19 10:46 Freq: Status: Active Protocol: Document 05/06/19 14:12 AR (Rec: 05/06/19 14:41 AR [email or web address]) Current Condition History of Current Condition Onset Date 03/03/2019 Current Complaints dec balance, sternal incision TTP, dec walking speed, dec aerobic capacity History of Current Condition Pt admitted for planned CABG on 03/03/[address] [facility] in [place], [place]. Day 1 post-op, pt presented with slurred speech and word finding difficulties. CT scan showed L MCA CVA. Deficits include aphasia, generalized weakness, dec functional mobility, balance and right sided neglect. Pt received inpatient services (PT, OT, ST ) over 9 day period. Pt was then transfered to [facility] for 2 weeks of intensive therapy and then discharged home to receive home health PT , OT, ST through [facility]. Information taken from OT evaluation. Prior Treatments and Tests Inpatient OT, PT, ST. Home Health OT, PT, ST Future Testing and Treatments Planned possible referral to the medical center rehab Treatment Goals Patient/Caregiver Goals inc aerobic activity and capacity PT-OP-C Subjective Start: 05/06/19 10:46 Freq: Status: Active Protocol: Document 06/08/19 13:45 AMB (Rec: 06/08/19 15:53 AMB [email or web address]) OP-PT Subjective Patient Comments Patient Comments Pt describes the exercises he is doing at home outside of what has been prescribed in his HEP: 7 minute interval training which includes planks , wall squats, pushups, crunches. . . and does more stretching and balance yoga in his steam room. PT-OP-D Balance Start: 05/06/19 10:46 Freq: Status: Active Protocol: Document 05/06/19 14:12 AR (Rec: 05/06/19 15:18 AR [email or web address]) Balance Tests Other Other Balance Tests Performed FGA: score ( indicates higher fall risk) PT-OP-G Mobility & Gait Start: 05/06/19 10:46 Freq: Status: Active Protocol: Document 05/06/19 14:12 AR (Rec: 05/06/19 14:41 AR [email or web address]) OP Mobility Evaluation Bed Mobility Rolling Independent, but had difficulty following directions to change position in bed Supine to and from Sit Indepenent. Able to follow simple command to sit up OP Gait Assessment Gait Gait Assistance Required: Independent Able to Maintain Weight Bearing Status Yes During Gait Assistive Devices Assistive Device None Gait Deviations General Gait Pattern Decreased Stride Length Decreased Feet Clearance Factors Limiting Gait Function Factors Limiting Gait Function Decreased Strength Difficulty Following Directions Incoordination Poor Balance Poor Safety Awareness Comments Gait Comments decreased safety awareness and dec spatial awareness. PT-OP-M Strength Start: 05/06/19 10:46 Freq: Status: Active Protocol: Document 05/06/19 14:12 AR (Rec: 05/06/19 15:17 AR [email or web address]) Shoulder Strength Shoulder Manual Muscle Testing Left Flexion 3+ Fair+ Abduction (C5) 3+ Fair+ External Rotation 4 Good Internal Rotation 4 Good Right Flexion 4 Good Abduction (C5) 3+ Fair+ External Rotation 3+ Fair+ Internal Rotation 4+ Good+ Wrist Strength Wrist Manual Muscle Testing Left Flexion (C7) 4+ Good+ Extension (C6) 4+ Good+ Right Flexion (C7) 4 Good Extension (C6) 4+ Good+ Hip Strength Hip Manual Muscle Testing Left Flexion (L2) 4- Good- Extension (S1) 4 Good Abduction 4 Good External Rotation 4+ Good+ Internal Rotation 4+ Good+ Right Flexion (L2) 4 Good Extension (S1) 4 Good External Rotation 4- Good- Internal Rotation 5 Normal Reason Not Measured Communication Comments unable to test hip abd, pt was unable to assume position necessary for testing d/t lack of understanding Knee Strength Knee Manual Muscle Testing Left Flexion (S2) 4+ Good+ Extension (L3) 5 Normal Right Flexion (S2) 4+ Good+ Extension (L3) 5 Normal Ankle/Foot Strength Ankle and Foot Manual Muscle Testing Left Dorsiflexion (L4) 4- Good- Plantarflexion (S1) 4+ Good+ Comments plantarflexion tested in sitting with manual resistance Right Dorsiflexion (L4) 4- Good- Plantarflexion (S1) 5 Normal Comments plantarflexion tested in sitting with manual resistance PT-OP-Q Treatments Start: 05/06/19 10:46 Freq: Status: Active Protocol: Document 06/08/19 13:45 AMB (Rec: 06/08/19 15:53 AMB [email or web address]) Gym Equipment Shuttle Balance Blue Details Ball toss @ rebounder, Wide YURI, Staggered Stance, NBOS Comments mini squats; head turns with stride stance Therapeutic Exercises Standing Exercises lunges Standing Exercise Name walking forward Comments with 10# medicine ball Neuro Re-Education Treatment Balance Activities SLS w/ BUE movements Details SLS Surface Ortiz Foam Lateral step overs Details side step and forward Surface level Equipment hurdles and foam Reps/Duration 6 lengths PT-OP-T Assessment and Plan Start: 05/06/19 10:46 Freq: Status: Active Protocol: Document 06/08/19 13:45 AMB (Rec: 06/08/19 15:53 AMB [email or web address]) Physical Therapy Assessment Assessment Summary Assessment Pt better with SLS today, but continues to be challenged with coordinating more dynamic movements. Physical Therapy Plan Next Visit Focus/Plan Next Note Type Treatment Note Next Visit Plan Continue to increase balance difficulty, challenge ability to follow direction
--- NOTE | 2019-06-18 17:31 | PT.OTN ---
Current Diagnoses Cerebral infarction, unspecified (06/18/19) Difficulty in walking, not elsewhere classified (06/18/19) Weakness (06/18/19) Physical Therapy Treatment Note PT-OP-A Visit Information Start: 05/06/19 10:46 Freq: Status: Active Protocol: Document 06/18/19 10:30 [facility] (Rec: 06/18/19 17:31 [facility] [email or web address]) Out-Patient Physical Therapy Visit Information Visit Information Visit Type Treatment Note Visit Start Time 10:30 Visit Stop Time 11:15 Total Visit Minutes 45 Visit Number 8 Number of OIL BURNER TECHNICIAN Visits 0 PT-OP-B Current Condition Start: 05/06/19 10:46 Freq: Status: Active Protocol: Document 05/06/19 14:12 AR (Rec: 05/06/19 14:41 AR [email or web address]) Current Condition History of Current Condition Onset Date 03/03/2019 Current Complaints dec balance, sternal incision TTP, dec walking speed, dec aerobic capacity History of Current Condition Pt admitted for planned CABG on 03/03/2019 at [facility] in [place], [place]. Day 1 post-op, pt presented with slurred speech and word finding difficulties. CT scan showed L MCA CVA. Deficits include aphasia, generalized weakness, dec functional mobility, balance and right sided neglect. Pt received inpatient services (PT, OT, ST ) over 9 day period. Pt was then transfered to [facility] for 2 weeks of intensive therapy and then discharged home to receive home health PT , OT, ST through [facility]. Information taken from OT evaluation. Prior Treatments and Tests Inpatient OT, PT, ST. Home Health OT, PT, ST Future Testing and Treatments Planned possible referral to [facility] rehab Treatment Goals Patient/Caregiver Goals inc aerobic activity and capacity PT-OP-C Subjective Start: 05/06/19 10:46 Freq: Status: Active Protocol: Document 06/18/19 10:30 [facility] (Rec: 06/18/19 17:31 AMH [email or web address]) OP-PT Subjective Patient Comments Patient Comments Pt reports he has been doing [place] yoga daily and he feels this helps him. PT-OP-D Balance Start: 05/06/19 10:46 Freq: Status: Active Protocol: Document 05/06/19 14:12 AR (Rec: 05/06/19 15:18 AR [email or web address]) Balance Tests Other Other Balance Tests Performed FGA: score 21/30 (22/30 indicates higher fall risk) PT-OP-G Mobility & Gait Start: 05/06/19 10:46 Freq: Status: Active Protocol: Document 05/06/19 14:12 AR (Rec: 05/06/19 14:41 AR [email or web address]) OP Mobility Evaluation Bed Mobility Rolling Independent, but had difficulty following directions to change position in bed Supine to and from Sit Indepenent. Able to follow simple command to sit up OP Gait Assessment Gait Gait Assistance Required: Independent Able to Maintain Weight Bearing Status Yes During Gait Assistive Devices Assistive Device None Gait Deviations General Gait Pattern Decreased Stride Length, Decreased Feet Clearance Factors Limiting Gait Function Factors Limiting Gait Function Decreased Strength,Difficulty Following Directions, Incoordination,Poor Balance, Poor Safety Awareness Comments Gait Comments decreased safety awareness and dec spatial awareness. PT-OP-M Strength Start: 05/06/19 10:46 Freq: Status: Active Protocol: Document 05/06/19 14:12 AR (Rec: 05/06/19 15:17 AR [email or web address]) Shoulder Strength Shoulder Manual Muscle Testing Left Flexion 3+ Fair+ Abduction (C5) 3+ Fair+ External Rotation 4 Good Internal Rotation 4 Good Right Flexion 4 Good Abduction (C5) 3+ Fair+ External Rotation 3+ Fair+ Internal Rotation 4+ Good+ Wrist Strength Wrist Manual Muscle Testing Left Flexion (C7) 4+ Good+ Extension (C6) 4+ Good+ Right Flexion (C7) 4 Good Extension (C6) 4+ Good+ Hip Strength Hip Manual Muscle Testing Left Flexion (L2) 4- Good- Extension (S1) 4 Good Abduction 4 Good External Rotation 4+ Good+ Internal Rotation 4+ Good+ Right Flexion (L2) 4 Good Extension (S1) 4 Good External Rotation 4- Good- Internal Rotation 5 Normal Reason Not Measured Communication Comments unable to test hip abd, pt was unable to assume position necessary for testing d/t lack of understanding Knee Strength Knee Manual Muscle Testing Left Flexion (S2) 4+ Good+ Extension (L3) 5 Normal Right Flexion (S2) 4+ Good+ Extension (L3) 5 Normal Ankle/Foot Strength Ankle and Foot Manual Muscle Testing Left Dorsiflexion (L4) 4- Good- Plantarflexion (S1) 4+ Good+ Comments plantarflexion tested in sitting with manual resistance Right Dorsiflexion (L4) 4- Good- Plantarflexion (S1) 5 Normal Comments plantarflexion tested in sitting with manual resistance PT-OP-Q Treatments Start: 05/06/19 10:46 Freq: Status: Active Protocol: Document 06/18/19 10:30 [facility] (Rec: 06/18/19 17:31 [facility] [email or web address]) Cardio Equipment Recumbent Stepper (Sci-Fit) Duration (Minutes) 6 Resistance 4 Seat Position 10 Gym Equipment Shuttle Balance Red Details Wide YURI, Staggered Stance Blue Details Ball toss @ rebounder, Wide YURI, Staggered Stance, NBOS Comments mini squats; head turns with stride stance Therapeutic Exercises Standing Exercises 1 Standing Exercise Name standing calf raises Reps/Minutes 2 x 10 reps squats Standing Exercise Name sit- stand from chair in parallel bars Reps/Minutes 2 x 10 reps Neuro Re-Education Treatment Balance Activities 1 Details single leg stance in parallel bars Comments EO/EC Amb /c head turns Details Amb /c head turns Comments Horizontal/Vertical SLS w/ BUE movements Details SLS Surface Ortiz Foam High knee stepping Surface level Reps/Duration 6 lengths //bars Comments very slow Tandem walk Details Tandem walk /c ball/cone transfers Lateral step overs Details side step and forward Surface level Equipment hurdles and foam Reps/Duration 6 lengths PT-OP-T Assessment and Plan Start: 05/06/19 10:46 Freq: Status: Active Protocol: Document 06/18/19 10:30 [facility] (Rec: 06/18/19 17:31 [facility] [email or web address]) Physical Therapy Assessment Assessment Summary Assessment Eyes closed really challanges balance, also has difficulty with weight shifts forward Physical Therapy Plan Frequency and Duration Frequency of Treatment 2x/Week Duration of Treatment 2 months Plan of Care Start Date 05/06/19 Plan of Care End Date 07/07/19 Next Visit Focus/Plan Next Note Type Treatment Note Next Visit Plan Continue to increase balance difficulty, challenge ability to follow direction
--- NOTE | 2019-06-25 12:44 | PT.OTN ---
Current Diagnoses Cerebral infarction, unspecified (06/25/19) Difficulty in walking, not elsewhere classified (06/25/19) Weakness (06/25/19) Physical Therapy Treatment Note PT-OP-A Visit Information Start: 05/06/19 10:46 Freq: Status: Active Protocol: Document 06/25/19 12:03 DCW (Rec: 06/25/19 12:44 DCW [id number]) Out-Patient Physical Therapy Visit Information Visit Information Visit Type Treatment Note Visit Start Time 12:00 Visit Stop Time 12:45 Total Visit Minutes 45 Visit Number 9 Number of ALARM ADJUSTER Visits 0 Evaluation Information Evaluation Date 05/06/19 PT-OP-B Current Condition Start: 05/06/19 10:46 Freq: Status: Active Protocol: Document 05/06/19 14:12 AR (Rec: 05/06/19 14:41 AR [email or web address]) Current Condition History of Current Condition Onset Date 03/03/2019 Current Complaints dec balance, sternal incision TTP, dec walking speed, dec aerobic capacity History of Current Condition Pt admitted for planned CABG on 03/03/2019 at [facility] in [place], [place]. Day 1 post-op, pt presented with slurred speech and word finding difficulties. CT scan showed L MCA CVA. Deficits include aphasia, generalized weakness, dec functional mobility, balance and right sided neglect. Pt received inpatient services (PT, OT, ST ) over 9 day period. Pt was then transfered to [facility] for 2 weeks of intensive therapy and then discharged home to receive home health PT , OT, ST through [facility]. Information taken from OT evaluation. Prior Treatments and Tests Inpatient OT, PT, ST. Home Health OT, PT, ST Future Testing and Treatments Planned possible referral to [facility] rehab Treatment Goals Patient/Caregiver Goals inc aerobic activity and capacity PT-OP-C Subjective Start: 05/06/19 10:46 Freq: Status: Active Protocol: Document 06/25/19 12:03 DCW (Rec: 06/25/19 12:44 DCW [id number]) OP-PT Subjective Patient Comments Patient Comments Pt reports he feels like he is still improving, and feels like his recovery is going well. PT-OP-D Balance Start: 05/06/19 10:46 Freq: Status: Active Protocol: Document 05/06/19 14:12 AR (Rec: 05/06/19 15:18 AR [email or web address]) Balance Tests Other Other Balance Tests Performed FGA: score 30 (/30 indicates higher fall risk) PT-OP-G Mobility & Gait Start: 05/06/19 10:46 Freq: Status: Active Protocol: Document 05/06/19 14:12 AR (Rec: 05/06/19 14:41 AR [email or web address]) OP Mobility Evaluation Bed Mobility Rolling Independent, but had difficulty following directions to change position in bed Supine to and from Sit Indepenent. Able to follow simple command to sit up OP Gait Assessment Gait Gait Assistance Required: Independent Able to Maintain Weight Bearing Status Yes During Gait Assistive Devices Assistive Device None Gait Deviations General Gait Pattern Decreased Stride Length, Decreased Feet Clearance Factors Limiting Gait Function Factors Limiting Gait Function Decreased Strength,Difficulty Following Directions, Incoordination,Poor Balance, Poor Safety Awareness Comments Gait Comments decreased safety awareness and dec spatial awareness. PT-OP-M Strength Start: 05/06/19 10:46 Freq: Status: Active Protocol: Document 05/06/19 14:12 AR (Rec: 05/06/19 15:17 AR [email or web address]) Shoulder Strength Shoulder Manual Muscle Testing Left Flexion 3+ Fair+ Abduction (C5) 3+ Fair+ External Rotation 4 Good Internal Rotation 4 Good Right Flexion 4 Good Abduction (C5) 3+ Fair+ External Rotation 3+ Fair+ Internal Rotation 4+ Good+ Wrist Strength Wrist Manual Muscle Testing Left Flexion (C7) 4+ Good+ Extension (C6) 4+ Good+ Right Flexion (C7) 4 Good Extension (C6) 4+ Good+ Hip Strength Hip Manual Muscle Testing Left Flexion (L2) 4- Good- Extension (S1) 4 Good Abduction 4 Good External Rotation 4+ Good+ Internal Rotation 4+ Good+ Right Flexion (L2) 4 Good Extension (S1) 4 Good External Rotation 4- Good- Internal Rotation 5 Normal Reason Not Measured Communication Comments unable to test hip abd, pt was unable to assume position necessary for testing d/t lack of understanding Knee Strength Knee Manual Muscle Testing Left Flexion (S2) 4+ Good+ Extension (L3) 5 Normal Right Flexion (S2) 4+ Good+ Extension (L3) 5 Normal Ankle/Foot Strength Ankle and Foot Manual Muscle Testing Left Dorsiflexion (L4) 4- Good- Plantarflexion (S1) 4+ Good+ Comments plantarflexion tested in sitting with manual resistance Right Dorsiflexion (L4) 4- Good- Plantarflexion (S1) 5 Normal Comments plantarflexion tested in sitting with manual resistance PT-OP-Q Treatments Start: 05/06/19 10:46 Freq: Status: Active Protocol: Document 06/25/19 12:03 DCW (Rec: 06/25/19 12:44 DCW [id number]) Cardio Equipment Recumbent Stepper (Sci-Fit) Duration (Minutes) 6 Resistance 4 Seat Position 10 Gym Equipment Shuttle Recovery Plyometric Hopping Resistance 62# Shuttle Balance Red Details Wide YURI, Staggered Stance, Lateral weight shift Therapeutic Exercises Standing Exercises 1 Standing Exercise Name standing calf raises Reps/Minutes x20 Other Exercises Resisted Ambulation Other Exercise Name Fwd, Bkwd, Side-stepping Resistance Blue Equipment Used T-band PT-OP-T Assessment and Plan Start: 05/06/19 10:46 Freq: Status: Active Protocol: Document 06/25/19 12:03 DCW (Rec: 06/25/19 12:44 DCW [id number]) Physical Therapy Assessment Goals Gait Impairment fall risk Short Term Goal (STG) Pt will demonstrate walking with smooth change in gait speed w/o loss of balance in order to ambulate safely in the community. STG Duration 06/06/2019 Intermediate Goal (LTG) Pt will improve FGA score to 25/30 to decrease fall risk. LTG Duration 07/07/2019 Strength Impairment strength Short Term Goal (STG) Pt will be independent with HEP. STG Duration 06/06/2019 Intermediate Goal (LTG) Pt will demonstrate 5/5 LE and UE strength to be able to perform yoga series to prior level ability. LTG Duration 07/07/2019 Assessment Summary Assessment Pt doing very well, will likely re-test and discharge next visit. Pt has no current complaints or difficulties in his day-to-day function Physical Therapy Plan Frequency and Duration Frequency of Treatment 2x/Week Duration of Treatment 2 months Plan of Care Start Date 05/06/19 Plan of Care End Date 07/07/19 Next Visit Focus/Plan Next Note Type Treatment Note Next Visit Plan Continue to increase balance difficulty, challenge ability to follow direction
--- NOTE | 2019-06-30 12:37 | PT.OTN ---
Current Diagnoses Cerebral infarction, unspecified (06/30/19) Difficulty in walking, not elsewhere classified (06/30/19) Weakness (06/30/19) Physical Therapy Treatment Note PT-OP-A Visit Information Start: 05/06/19 10:46 Freq: Status: Active Protocol: Document 06/30/19 12:00 DCW (Rec: 06/30/19 12:38 DCW [id number]) Out-Patient Physical Therapy Visit Information Visit Information Visit Type Treatment Note Visit Start Time 12:00 Visit Stop Time 12:30 Total Visit Minutes 45 Visit Number 10 Number of PLUMBING TECHNICIAN Visits 0 Evaluation Information Evaluation Date 05/06/19 PT-OP-B Current Condition Start: 05/06/19 10:46 Freq: Status: Active Protocol: Document 05/06/19 14:12 AR (Rec: 05/06/19 14:41 AR [email or web address]) Current Condition History of Current Condition Onset Date 03/03/2019 Current Complaints dec balance, sternal incision TTP, dec walking speed, dec aerobic capacity History of Current Condition Pt admitted for planned CABG on 03/03/2019 at [facility] in [place], [place]. Day 1 post-op, pt presented with slurred speech and word finding difficulties. CT scan showed L MCA CVA. Deficits include aphasia, generalized weakness, dec functional mobility, balance and right sided neglect. Pt received inpatient services (PT, OT, ST ) over 9 day period. Pt was then transfered to [facility] for 2 weeks of intensive therapy and then discharged home to receive home health PT , OT, ST through [facility]. Information taken from OT evaluation. Prior Treatments and Tests Inpatient OT, PT, ST. Home Health OT, PT, ST Future Testing and Treatments Planned possible referral to [facility] rehab Treatment Goals Patient/Caregiver Goals inc aerobic activity and capacity PT-OP-C Subjective Start: 05/06/19 10:46 Freq: Status: Active Protocol: Document 06/30/19 12:00 DCW (Rec: 06/30/19 12:38 DCW [id number]) OP-PT Subjective Patient Comments Patient Comments Pt feels like everything is going very well, agreeable to discharge at this time. PT-OP-D Balance Start: 05/06/19 10:46 Freq: Status: Active Protocol: Document 06/30/19 12:00 DCW (Rec: 06/30/19 12:24 DCW [id number]) Balance Tests Other Other Balance Tests Performed DGI: FGA: score PT-OP-G Mobility & Gait Start: 05/06/19 10:46 Freq: Status: Active Protocol: Document 06/30/19 12:00 DCW (Rec: 06/30/19 12:24 DCW [id number]) OP Gait Assessment Gait Gait Assistance Required: Independent Able to Maintain Weight Bearing Status Yes During Gait Comments Gait Comments Decreased ruthie PT-OP-M Strength Start: 05/06/19 10:46 Freq: Status: Active Protocol: Document 06/30/19 12:00 DCW (Rec: 06/30/19 12:24 DCW [id number]) Hip Strength Hip Manual Muscle Testing Left Flexion (L2) 5 Normal Extension (S1) 5 Normal Abduction 4+ Good+ Adduction 5 Normal External Rotation 5 Normal Internal Rotation 5 Normal Right Flexion (L2) 5 Normal Extension (S1) 5 Normal Abduction 4+ Good+ Adduction 5 Normal External Rotation 5 Normal Internal Rotation 5 Normal Knee Strength Knee Manual Muscle Testing Left Flexion (S2) 5 Normal Extension (L3) 5 Normal Right Flexion (S2) 5 Normal Extension (L3) 5 Normal Ankle/Foot Strength Ankle and Foot Manual Muscle Testing Left Dorsiflexion (L4) 5 Normal Plantarflexion (S1) 5 Normal Right Dorsiflexion (L4) 5 Normal Plantarflexion (S1) 5 Normal PT-OP-Q Treatments Start: 05/06/19 10:46 Freq: Status: Active Protocol: Document 06/30/19 12:00 DCW (Rec: 06/30/19 12:38 DCW [id number]) Therapeutic Exercises Standing Exercises 1 Standing Exercise Name Hip Abduction Side bilateral Resistance Blue Equipment Used T-band Reps/Minutes x20 Other Exercises Resisted Ambulation Other Exercise Name Fwd, Bkwd, Side-stepping Resistance Blue Equipment Used T-band PT-OP-T Assessment and Plan Start: 05/06/19 10:46 Freq: Status: Active Protocol: Document 06/30/19 12:00 DCW (Rec: 06/30/19 12:38 DCW [id number]) Physical Therapy Assessment Impairments Impairments Balance,Coordination, Functional Activities, Functional Mobility,Gait,ROM, Strength,Transfers,Visual Motor Goals Gait Impairment fall risk Short Term Goal (STG) Pt will demonstrate walking with smooth change in gait speed w/o loss of balance in order to ambulate safely in the community. STG Duration Met Uncrater Goal (LTG) Pt will improve FGA score to 25/30 to decrease fall risk. LTG Duration Met Strength Impairment strength Short Term Goal (STG) Pt will be independent with HEP. STG Duration Met Jail Goal (LTG) Pt will demonstrate 5/5 LE and UE strength to be able to perform yoga series to prior level ability. LTG Duration Met Assessment Summary Assessment Pt met goals, doing very well with balance and strength. Pt' s only deficit at this time appears to be a very mild bilateral hip abductor weakness, which his HEP should help address. Physical Therapy Plan Frequency and Duration Frequency of Treatment 2x/Week Duration of Treatment 2 months Plan of Care Start Date 05/06/19 Plan of Care End Date 07/07/19 Discharge Physical Therapy Discharge Reasons Goals Met Next Visit Focus/Plan Next Note Type Discharge Summary
== END 2019-07-01 17:15 | disposition home or self-care (01) ==
LOC: PHYS 12:00
PROVIDERS: PCP Internal Medicine; Visit Provider Internal Medicine
DX: I63.9 Cerebral infarction, unspecified (principal); R53.1 Weakness; R26.2 Difficulty in walking, not elsewhere classified
CPT/HCPCS: 97110; 97112; 97162; 97530; 97535

== ENCOUNTER 2019-11-11 10:30 | Outpatient (RCR) | payer OTHER, SELFPAY ==
--- NOTE | 2019-04-23 15:29 | ST.OPIE ---
Provider Information Visit Care Team Role Provider Type Sindi Weinstein MD Attending Provider Physician Primary Care Provider Specialty: Internal Medicine Address: [address] [place] [address], [phone] Email: Speech-Language Pathology Initial Evaluation NURSE INTERN Language Evaluation Start: 04/23/19 11:01 Freq: Status: Active Protocol: Document 04/20/19 14:30 TLC (Rec: 04/23/19 11:30 TLC [id number]) Language Evaluation Session Time Visit Start Time 14:30 Visit Stop Time 15:15 Total Visit Minutes 45 Visit Information Visit Number 1 Plan of Care Dates 04/20/19-07/21/19 Insurance Information [employer] - Medicare Next Note Type Next Note Type Treatment Note Referral Referring Physician Dr. Sindi Weinstein Reason for Referral Aphasia s/p CVA Past Medical History Patient History Mr. Giles was admitted for coronary artery bypass grafting on March 03, 2019 at [facility] in [place]. Slurred speech and word finding difficulty were observed post op day [address] showed L MCA stroke. His deficits were aphasia, generalized weakness, decreased functional mobility, balance and R neglect. He received inpatient ST, OT and PT over the course of the 9 day hospitalization and then received inpatient rehab in [place] for ~ 2 weeks. Once home, he received home health ST, OT and PT through [facility]. 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 He also received dysphagia therapy for mild-moderate oral phase dysphagia which improved during the hospitalization. Notes from inpatient rehab in [place] and [facility] were not available at this time. Oral Motor Examination Oral Motor Exam Completed Yes Results Mild-moderate impairments in lingual range of motion and coordination for diadochokinesis tasks. Despite this, articulation is precise and speech intelligibility is judged to 100% in conversation. Family denies any slurred speech or difficulty related to speech intelligibility. Subjective Subjective Mr. Giles arrived on time accompanied by his daughter Luci who was present during the session. - Informal Assessment Receptive Language Normal Yes Expressive Language Normal No Articulation Normal Yes Cognition Normal No Assessment Findings Formal assessment to be completed next session per request due to patient fatigue today. Based on informal assessment, observation and report, Mr. Fuentes has made significant progress in cognitive communication skills since his hospitalization. He followed along in our conversation and answered appropriately, though rate of speech was slow and utterances were reduced in length. He reports difficulty expressing more complex thoughts and he has ongoing deficits in cognition and orientation. He was oriented to situation, self and place, but was not oriented to date off by a few months. He named common objects such as pen, watch, hair without difficulty. He demonstrated good insight into deficits and implementation of strategies such as substitution of canteen for thermos in word finding. 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 - Receptive Language Yes/No Questions Skill Level WFL Following Directions - Verbal Skill Level WFL Auditory Comprehension Skill Level WFL Reading Comprehension Skill Level Mildly Impaired - Expressive Language Automatic Speech Skill Level Mildly Impaired Object Naming Skill Level Mildly Impaired Oral Expression Skill Level Moderately Impaired - Findings Language Findings Mr. Fuentes presents with aphasia characterized by difficulty with expressive language which affects major life areas such as returning to work as a psychologist. He also presents with deficits in cognition; however, it us difficult to determine how much the impairments have an effect on communication at this time. Recommendations Recommendations Formal language testing to be completed next session. Treatment Goals Short Term Goals Mr. Fuentes will participate in formal language testing to guide plan of care and goal setting.
--- NOTE | 2019-04-28 09:19 | ST.OPTN ---
Care Team Visit Care Team Role Provider Type Sindi Weinstein MD Attending Provider Physician Primary Care Provider Address: [address] [place] [address], [id number] SECURITY BUSINESS ANALYST Treatment Note SECURITY BUSINESS ANALYST Treatment Note Start: 04/23/19 11:01 Freq: Status: Active Protocol: Document 04/27/19 14:30 TLC (Rec: 04/28/19 09:18 TLC [id number]) Speech Pathology Treatment Note Session Time Visit Start Time 14:30 Visit Stop Time 15:30 Total Visit Minutes 60 Visit Information Visit Number 2 Plan of Care Dates 04/20/19-07/21/19 Insurance Information [facility] - Medicare Setting Treatment Setting Outpatient Care Visit Type Note Type Treatment Note Next Note Type Next Note Type Treatment Note General Information General Information Mr. Giles was admitted for coronary artery bypass grafting on March 03, 2019 at [facility] in [place]. Slurred speech and word finding difficulty were observed post op day [address] showed L MCA stroke. His deficits were aphasia, generalized weakness, decreased functional mobility, balance and R neglect. He received inpatient ST, OT and PT over the course of the 9 day hospitalization and then received inpatient rehab in [place] for ~ 2 weeks. Once home, he received home health ST, OT and PT through [facility]. Subjective Identification Type Name Others Present Family Friend Observations/Patient Presentation Mr. Fuentes arrived on time accompanied by his and a friend who were both present during the session. Chief Complaint(s) Language Cognitive Patient Knowledge/Awareness of SECURITY BUSINESS ANALYST Role Good in Treatment Objective Short Term Goals Mr. Fuentes will participate in formal language testing to guide plan of care and goal setting. Treatment Activities Initiated administration of the Ninole Diagnostic Aphasia Examination. Alex had difficulty following complex directions and answering questions about complex ideational material. His oral expression for automatic speech tasks, repetition of words and repetition of sentences was a strength. He scored 6/10 on responsive naming and 12/12 on screening of special categories (naming letters, numbers and colors). On the reading portion, he scored 3/4 on matching basic symbols across cases and scripts and 3/4 on number matching. His score on picture word matching was 3/4 and he scored 15/15 on basic oral word reading. For oral reading of sentences with comprehension, he scored 3/5. He scored 2/4 on reading comprehension for sentences and paragraphs. The writing portion of the test and the Ninole naming test will be administered next session. Family and patient education was provided verbally regarding plan for next treatment session and activities to work on at home prior to next session. His family inquired about an cecelia they could use at home and Constant [facility] was discussed as a good option. Assessment Patient Response to Treatment Good Rehab Potential Good Impairments Identified Auditory Comprehension Cognitive-Linguistic Skills Expressive Language Reading Comprehension Written Expression Assessment of Improvement Family is very motivated to begin therapy as soon as possible. Mr. Fuentes's downloaded Constant Therapy and a few tasks were recommended to work on over the week. Further instruction will be provided once testing is complete and goals are established. Reviewed with Patient Goals Home Exercise Program Patient/Caregiver Understanding Good Plan Amount of Therapy Recommended 6 Months Frequency of Treatment Twice a Week Length of Session 45 Minutes Treatment Emphasis Next Session Complete assessment Provided Patient/Caregiver Instruction Plan of Care Questions/Concerns Therapy Recommendations Continue with Current Program
--- NOTE | 2019-05-05 12:53 | ST.OPTN ---
Care Team Visit Care Team Role Provider Type Sindi Weinstein MD Attending Provider Physician Primary Care Provider Address: [address] [place] [address], [id number] FINISHED CIGAR MAKER Treatment Note FINISHED CIGAR MAKER Treatment Note Start: 04/23/19 11:01 Freq: Status: Active Protocol: Document 05/04/19 12:38 PAMELA (Rec: 05/05/19 12:53 [email or web address] [id number]) Speech Pathology Treatment Note Session Time Visit Start Time 09:30 Visit Stop Time 10:00 Total Visit Minutes 30 Visit Type Note Type Administrative Note Subjective Observations/Patient Presentation The pt was scheduled for treatment but was unable to attend d/t feeling nauseous upon waking. However, his , Kamryn, attended and asked to speak with the FINISHED CIGAR MAKER. She explained that the pt often feels ill in the morning and that afternoon appts may work better for him. She had questions related to the pt's HEP and concerns that if he missed today's or any other appt it may be detrimental to his recovery, as she's been told that the first 6-12 mos of recovery are critical. She brought in exercises the pt had been given by timber selector during his hospital stay and asked if they seemed appropriate to continue. She stated he has no difficulty with any of the tasks. The pt is currently working with Constant Therapy (CT) and able to do most tasks but struggles with following auditory commands that require placing objects on a grid. He also exhibits intermittent difficulty performing ADLs (e. g., walking to the business process specialist to wash his hands). Education was provided RE neuroplasticity and benefit of early intervention. Assured Kamryn that missing one or two appts will not significantly impede the pt's recovery, particularly if he is compliant with HEP tasks and engaged in conversations and ADLs in his functional environment. Assessed HEP worksheets from previous tx and recommended continuing any that are challenging to the pt and discontinuing those that are not. Based on Kamryn's description of the pt's difficulty with auditory command task, particularly with known right side visual neglect, recommended not completing the task via CT but instead the pt's or a caregiver facilitate the same but simplified task real objects or playing cards at a table. This was demonstrated using playing cards with 1- and 2-step commands with recommendation of visual border placed at right side if visual orientation assistance is needed. Skilled feedback also provided RE attention skills and impact on ADLs, which will be addressed in tx. The pt's verbalized understanding and appreciation of all information. ~30 min was spent in consultation.
--- NOTE | 2019-05-12 10:06 | ST.OPTN ---
Care Team Visit Care Team Role Provider Type Sindi Weinstein MD Attending Provider Physician Primary Care Provider Address: [address] [place] [address], [id number] HYPOID GEAR TESTER Treatment Note HYPOID GEAR TESTER Treatment Note Start: 04/23/19 11:01 Freq: Status: Active Protocol: Document 05/11/19 09:23 TLC (Rec: 05/12/19 09:31 TLC [id number]) Speech Pathology Treatment Note Session Time Visit Start Time 14:30 Visit Stop Time 15:15 Total Visit Minutes 45 Visit Information Visit Number 4 Plan of Care Dates 04/20/19-07/21/19 Insurance Information [employer]- Medicare Setting Treatment Setting Outpatient Care Visit Type Note Type Treatment Note Next Note Type Next Note Type Treatment Note General Information General Information Mr. Giles was admitted for coronary artery bypass grafting on March 03, 2019 at [facility] in [place]. Slurred speech and word finding difficulty were observed post op day [address] showed L MCA stroke. His deficits were aphasia, generalized weakness, decreased functional mobility, balance and R neglect. He received inpatient ST, OT and PT over the course of the 9 day hospitalization and then received inpatient rehab in [place] for ~ 2 weeks. Once home, he received home health ST, OT and PT through [facility]. 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 Subjective Identification Type Name Others Present Family Observations/Patient Presentation Alex arrived on time accompanied by his , Kamryn who was present during the session. 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 Fuentes will follow directions with 3 elements including spatial concepts ( above, below, right, left) with 90% accuracy in order to improve receptive language skills for following commands. Mr. Fuentes will name an object described with 90% accuracy without visual cues in order to improve responsive naming. Mr. Fuentes will read a short paragraph (3-5 sentences) to himself and answer open ended questions about the content aloud with 90% accuracy in order to improve receptive language skills. Detention Goals Mr. Fuentes will demonstrate adequate expressive and receptive language skills and short term memory in order accurately convey complex ideas and to participate successfully in a conversational exchange. Treatment Activities Reviewed results of assessment with the patient and his and discussed short term goals which they both agreed with. We discussed plan of care including how these goals will be built upon as they are met to focus on more complex linguistic skills. Targeted following directions with spatial concepts and reviewed understanding of spatial concepts receptively and expressively which Alex completed with 90% accuracy. Discussed short term memory strategies for remembering 3+ elements during following commands. Strategies of visualization and repetition were recommended. Targeted naming action word given description ~90% accuracy with extra time. Targeted answering multiple choice questions about a 3-5 sentence paragraph. Alex reported this being the most challenging task for him today . We reviewed HEP including use of Constant Therapy cecelia and tasks were assigned for at home practice. Assessment Patient Response to Treatment Good Rehab Potential Good Impairments Identified Auditory Comprehension Expressive Language Memory - Short Term Written Expression Progress Towards Goals Good Progress Assessment of Overall Progress Improving Assessment of Improvement Good progress with understanding spatial concepts . Excellent compliance with home exercise program. Reviewed with Patient Progress Being Made Home Exercise Program Patient/Caregiver Understanding Good Plan Amount of Therapy Recommended 6 Months Length of Session 45 Minutes Provided Patient/Caregiver Instruction Plan of Care Questions/Concerns Therapy Recommendations Continue with Current Program
--- NOTE | 2019-05-14 08:46 | ST.OPTN ---
Care Team Visit Care Team Role Provider Type Sindi Weinstein MD Attending Provider Physician Primary Care Provider Address: [address] [place] [address], [id number] PACKAGE CLERK Treatment Note PACKAGE CLERK Treatment Note Start: 04/23/19 11:01 Freq: Status: Active Protocol: Document 05/14/19 14:30 TLC (Rec: 05/15/19 08:46 TLC [id number]) Speech Pathology Treatment Note Session Time Visit Start Time 14:30 Visit Stop Time 15:15 Total Visit Minutes 45 Visit Information Visit Number 5 Plan of Care Dates 04/20/19-07/21/19 Insurance Information [facility]- Medicare Setting Treatment Setting Outpatient Care Visit Type Note Type Treatment Note Next Note Type Next Note Type Treatment Note General Information General Information Mr. Giles was admittted for coronary artery bypass grafting on March 03, 2019 at [facility] in [place]. Slurred speech and word finding difficulty were observed post op day [address] showed L MCA stroke. His deficits were aphasia, gnerealized weakness, decreased functional mobility, balance and R neglect. He received inpatient ST, OT and PT over the course of the 9 day hospitalization and then received inpatient rehab in [place] for ~ 2 weeks. Once home, he received home health ST, OT and PT through [facility]. 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 Subjective Identification Type Name Others Present Family Observations/Patient Presentation Alex arrived on time accompanied by an employee of his. 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 Fuentes will follow directions with 3 elements including spatial concepts ( above, below, right, left) with 90% accuracy in order to improve receptive language skills for following commands. Mr. Fuentes will name an object described with 90% accuracy without visual cues in order to improve responsive naming. Mr. Fuentes will read a short paragraph (3-5 sentences) to himself and answer open ended questions about the content aloud with 90% accuracy in order to improve receptive language skills. Snf Goals Mr. Fuentes will demonstrate adequate expressive and receptive language skills and short term memory in order accurately convey complex ideas and to participate successfully in a conversational exchange. Treatment Activities Targeted recall of short term memory strategies discussed last session- visualization and chunking. Alex reported he did not recall this information. We discussed use of spaced retrieval techniques to improve memory and implemented this for recall of 2 memory strategies which Alex successfully recalled by the end of the session. We also discussed semantic feature analysis and I provided information on this therapy technique for them to use at home. Assessment Patient Response to Treatment Good Rehab Potential Good Impairments Identified Auditory Comprehension Expressive Language Memory - Short Term Written Expression Progress Towards Goals Good Progress Assessment of Overall Progress Improving Assessment of Improvement Good progress with excellent family support. Reviewed with Patient Progress Being Made Home Exercise Program Patient/Caregiver Understanding Good Plan Amount of Therapy Recommended 6 Months Frequency of Treatment Twice a Week Length of Session 45 Minutes Provided Patient/Caregiver Instruction Plan of Care Questions/Concerns Therapy Recommendations Continue with Current Program
--- NOTE | 2019-05-18 14:54 | ST.OPTN ---
Care Team Visit Care Team Role Provider Type Sindi Weinstein MD Attending Provider Physician Primary Care Provider Address: [address] [place] [address], [id number] PEWTER FINISHER Treatment Note PEWTER FINISHER Treatment Note Start: 04/23/19 11:01 Freq: Status: Active Protocol: Document 05/18/19 14:45 TLC (Rec: 05/19/19 14:54 TLC [id number]) Speech Pathology Treatment Note Session Time Visit Start Time 14:30 Visit Stop Time 15:17 Total Visit Minutes 47 Visit Information Visit Number 6 Plan of Care Dates 04/20/19-07/21/19 Insurance Information [employer]- Medicare Setting Treatment Setting Outpatient Care Visit Type Note Type Treatment Note Next Note Type Next Note Type Treatment Note General Information General Information Mr. Giles was admittted for coronary artery bypass grafting on March 03, 2019 at [facility] in [place]. Slurred speech and word finding difficulty were observed post op day [address] showed L MCA stroke. His deficits were aphasia, generalized weakness, decreased functional mobility, balance and R neglect. He received inpatient ST, OT and PT over the course of the 9 day hospitalization and then received inpatient rehab in [place] for ~ 2 weeks. Once home, he received home health ST, OT and PT through [facility]. 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 Subjective Identification Type Name Others Present Family Observations/Patient Presentation Alex arrived on time accompanied by Merline, one of his employees who was present during the session and who helps him with his home exercise program. 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 Fuentes will follow directions with 3 elements including spatial concepts ( above, below, right, left) with 90% accuracy in order to improve receptive language skills for following commands. Mr. Fuentes will name an object described with 90% accuracy without visual cues in order to improve responsive naming. Mr. Fuentes will read a short paragraph (3-5 sentences) to himself and answer open ended questions about the content aloud with 90% accuracy in order to improve receptive language skills. Prison Goals Mr. Fuentes will demonstrate adequate expressive and receptive language skills and short term memory in order accurately convey complex ideas and to participate successfully in a conversational exchange. Treatment Activities Discussed ongoing difficulty with spatial concepts during direction following task. Merline Johnson is able to follow directions with spatial concepts with real objects, but has difficulty with this in 2D such as on the tablet during Constant Therapy tasks. We spent time working on the concepts of under, above, below, right, left in a variety of different tasks. We also discussed impact of visual processing which is being addressed by OT. Recommendations for practicing spatial concepts at home, both receptively and expressively were provided. Semantic feature analysis was used to improve categorization and word finding skills. Alex had most difficulty with describing/properties requiring moderate verbal cues to provide answers for this section. He completed divergent naming of vegetables (10 in 1 minute) and furniture (3 in one minute). We discussed strategy of visualization to improve this skill. Assessment Patient Response to Treatment Good Rehab Potential Good Impairments Identified Auditory Comprehension Expressive Language Memory - Short Term Written Expression Progress Towards Goals Good Progress Assessment of Overall Progress Improving Assessment of Improvement Good progress toward goals for word finding and understanding spatial concepts . we have not yet addressed comprehension of paragraphs. Reviewed with Patient Progress Being Made Home Exercise Program Patient/Caregiver Understanding Good Plan Amount of Therapy Recommended 6 Months Frequency of Treatment Twice a Week Length of Session 45 Minutes Provided Patient/Caregiver Instruction Plan of Care Questions/Concerns Therapy Recommendations Continue with Current Program
--- NOTE | 2019-05-21 15:42 | ST.OPTN ---
Care Team Visit Care Team Role Provider Type Sindi Weinstein MD Attending Provider Physician Primary Care Provider Address: [address] [place] [address], [id number] DIGITAL ADVERTISING ANALYST Treatment Note DIGITAL ADVERTISING ANALYST Treatment Note Start: 04/23/19 11:01 Freq: Status: Active Protocol: Document 05/21/19 15:32 TLC (Rec: 05/21/19 15:42 TLC [id number]) Speech Pathology Treatment Note Session Time Visit Start Time 14:33 Visit Stop Time 15:17 Total Visit Minutes 44 Visit Information Visit Number 7 Plan of Care Dates 04/20/19-07/21/19 Insurance Information [employer]- Medicare Setting Treatment Setting Outpatient Care Visit Type Note Type Treatment Note Next Note Type Next Note Type Treatment Note General Information General Information Mr. Giles was admitted for coronary artery bypass grafting on March 03, 2019 at [facility] in [place]. Slurred speech and word finding difficulty were observed post op day [address] showed L MCA stroke. His deficits were aphasia, generalized weakness, decreased functional mobility, balance and R neglect. He received inpatient ST, OT and PT over the course of the 9 day hospitalization and then received inpatient rehab in [place] for ~ 2 weeks. Once home, he received home health ST, OT and PT through [facility]. 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 Subjective Identification Type Name Others Present Family Observations/Patient Presentation Alex arrived on time accompanied by Merline, one of his employees who was present during the session and who helps him with his home exercise program. 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 Fuentes will follow directions with 3 elements including spatial concepts ( above, below, right, left) with 90% accuracy in order to improve receptive language skills for following commands. Mr. Fuentes will name an object described with 90% accuracy without visual cues in order to improve responsive naming. Mr. Fuentes will read a short paragraph (3-5 sentences) to himself and answer open ended questions about the content aloud with 90% accuracy in order to improve receptive language skills. [facility] Goals Mr. Fuentes will demonstrate adequate expressive and receptive language skills and short term memory in order accurately convey complex ideas and to participate successfully in a conversational exchange. Treatment Activities Targeted auditory comprehension of [employer] article. Alex read one paragraph at a time and summarized what was read. He also answered questions (~ 70% accuracy). We discussed reducing message length as a strategy to improve comprehension. We also discussed increasing redundancy/repetitions, which for Alex is time consuming due to the time it takes to decode each word. Assessment Patient Response to Treatment Good Rehab Potential Good Impairments Identified Auditory Comprehension Expressive Language Memory - Short Term Written Expression Progress Towards Goals Good Progress Assessment of Overall Progress Improving Assessment of Improvement Good progress with auditory comprehension given extra time . Reviewed with Patient Progress Being Made Home Exercise Program Patient/Caregiver Understanding Good Plan Amount of Therapy Recommended 6 Months Frequency of Treatment Twice a Week Length of Session 45 Minutes Provided Patient/Caregiver Instruction Plan of Care Questions/Concerns Therapy Recommendations Continue with Current Program
--- NOTE | 2019-05-25 14:30 | ST.OPTN ---
Care Team Visit Care Team Role Provider Type Sindi Weinstein MD Attending Provider Physician Primary Care Provider Address: [address] [place] [address], [id number] INSPECTOR WEIGHTS AND MEASURES Treatment Note INSPECTOR WEIGHTS AND MEASURES Treatment Note Start: 04/23/19 11:01 Freq: Status: Active Protocol: Document 05/25/19 14:30 TLC (Rec: 05/26/19 09:15 TLC [id number]) Speech Pathology Treatment Note Session Time Visit Start Time 14:35 Visit Stop Time 15:15 Total Visit Minutes 40 Visit Information Visit Number 8 Plan of Care Dates 04/20/19-07/21/19 Insurance Information [facility]- Medicare Setting Treatment Setting Outpatient Care Visit Type Note Type Treatment Note Next Note Type Next Note Type Treatment Note General Information General Information Mr. Giles was admittted for coronary artery bypass grafting on March 03, 2019 at [facility] in [place]. Slurred speech and word finding difficulty were observed post op day [address] showed L MCA stroke. His deficits were aphasia, generalized weakness, decreased functional mobility, balance and R neglect. He received inpatient ST, OT and PT over the course of the 9 day hospitalization and then received inpatient rehab in [place] for ~ 2 weeks. Once home, he received home health ST, OT and PT through [facility]. 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 Subjective Identification Type Name Others Present Family Observations/Patient Presentation Alex arrived on time accompanied by his sone-in-law and grandson who were present during the session. 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 Fuentes will follow directions with 3 elements including spatial concepts ( above, below, right, left) with 90% accuracy in order to improve receptive language skills for following commands. Mr. Fuentes will name an object described with 90% accuracy without visual cues in order to improve responsive naming. Mr. Fuentes will read a short paragraph (3-5 sentences) to himself and answer open ended questions about the content aloud with 90% accuracy in order to improve receptive language skills. Field Supervisor Seed Production Goals Mr. Fuentes will demonstrate adequate expressive and receptive language skills and short term memory in order accurately convey complex ideas and to participate successfully in a conversational exchange. Treatment Activities Targeted spatial orientation and understanding of cardinal directions with visual cues. Referenced a map of the [place] and a resort map to describe regions by their directions. Targeted expressive language during abstract reasoning task for interpreting emotions in pictures. Targeted word finding with naming task from description - 100% accuracy. Used semantic feature analysis to target categorization, word finding and expressive language skills. Assessment Patient Response to Treatment Good Rehab Potential Good Impairments Identified Auditory Comprehension Expressive Language Memory - Short Term Written Expression Progress Towards Goals Good Progress Assessment of Overall Progress Improving Assessment of Improvement Per family report, Alex completed a lot of auditory comprehension homework with success. He continues to have difficulty with understanding spatial concepts. Reviewed with Patient Progress Being Made Home Exercise Program Patient/Caregiver Understanding Good Plan Amount of Therapy Recommended 6 Months Frequency of Treatment Twice a Week Length of Session 45 Minutes Provided Patient/Caregiver Instruction Plan of Care Questions/Concerns Therapy Recommendations Continue with Current Program
--- NOTE | 2019-05-28 15:53 | ST.OPTN ---
Care Team Visit Care Team Role Provider Type Sinid Weinstein MD Attending Provider Physician Primary Care Provider Address: [address] [place] [address], [id number] HIGH SCHOOL COMPUTER SCIENCE TEACHER Treatment Note HIGH SCHOOL COMPUTER SCIENCE TEACHER Treatment Note Start: 04/23/19 11:01 Freq: Status: Active Protocol: Document 05/28/19 15:50 TLC (Rec: 05/28/19 15:53 TLC [id number]) Speech Pathology Treatment Note Session Time Visit Start Time 14:30 Visit Stop Time 15:20 Total Visit Minutes 50 Visit Information Visit Number 9 Plan of Care Dates 04/20/19-07/21/19 Insurance Information [facility]- Medicare Setting Treatment Setting Outpatient Care Visit Type Note Type Treatment Note Next Note Type Next Note Type Treatment Note General Information General Information Mr. Giles was admitted for coronary artery bypass grafting on March 03, 2019 at [facility] in [place]. Slurred speech and word finding difficulty were observed post op day [address] showed L MCA stroke. His deficits were aphasia, generalized weakness, decreased functional mobility, balance and R neglect. He received inpatient ST, OT and PT over the course of the 9 day hospitalization and then received inpatient rehab in [place] for ~ 2 weeks. Once home, he received home health ST, OT and PT through [facility]. 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 Subjective Identification Type Name Others Present Family Observations/Patient Presentation Alex arrived on time accompanied by his , Kamryn , who was present during the session. 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 Fuentes will follow directions with 3 elements including spatial concepts ( above, below, right, left) with 90% accuracy in order to improve receptive language skills for following commands. Mr. Fuentes will name an object described with 90% accuracy without visual cues in order to improve responsive naming. Mr. Fuentes will read a short paragraph (3-5 sentences) to himself and answer open ended questions about the content aloud with 90% accuracy in order to improve receptive language skills. Laminate Floor Installer Goals Mr. Fuentes will demonstrate adequate expressive and receptive language skills and short term memory in order accurately convey complex ideas and to participate successfully in a conversational exchange. Treatment Activities Targeted expressive language through abstract reasoning tasks: interpreting emotions and comparing/contrasting two objects. Participated in semantic feature analysis with therapist's prompting. Assessment Patient Response to Treatment Good Rehab Potential Good Impairments Identified Auditory Comprehension Expressive Language Memory - Short Term Written Expression Progress Towards Goals Good Progress Assessment of Overall Progress Improving Assessment of Improvement Alex is successfully reading [employer] at home. He continues to have difficulty with complex verbal expression. Reviewed with Patient Progress Being Made Home Exercise Program Patient/Caregiver Understanding Good Plan Amount of Therapy Recommended 6 Months Frequency of Treatment Twice a Week Length of Session 45 Minutes Provided Patient/Caregiver Instruction Plan of Care Questions/Concerns Therapy Recommendations Continue with Current Program
--- NOTE | 2019-06-02 16:32 | ST.OPTN ---
Care Team Visit Care Team Role Provider Type Sindi Weinstein MD Attending Provider Physician Primary Care Provider Address: [address] [place] [address], [id number] BINDERY PRODUCTION MANAGER Treatment Note BINDERY PRODUCTION MANAGER Treatment Note Start: 04/23/19 11:01 Freq: Status: Active Protocol: Document 06/02/19 16:26 TLC (Rec: 06/02/19 16:32 TLC [id number]) Speech Pathology Treatment Note Session Time Visit Start Time 14:30 Visit Stop Time 15:17 Total Visit Minutes 47 Visit Information Visit Number 10 Plan of Care Dates 04/20/19-07/21/19 Insurance Information [facility]- Medicare Setting Treatment Setting Outpatient Care Visit Type Note Type Treatment Note Next Note Type Next Note Type Treatment Note General Information General Information Mr. Giles was admittted for coronary artery bypass grafting on March 03, 2019 at [facility] in [place]. Slurred speech and word finding difficulty were observed post op day [address] showed L MCA stroke. His deficits were aphasia, generalized weakness, decreased functional mobility, balance and R neglect. He received inpatient ST, OT and PT over the course of the 9 day hospitalization and then received inpatient rehab in [place] for ~ 2 weeks. Once home, he received home health ST, OT and PT through [facility]. 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 Subjective Identification Type Name Others Present Family Observations/Patient Presentation Alex arrived on time accompanied by his , Kamryn , and grandson who were present during the session. 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 Fuentes will follow directions with 3 elements including spatial concepts ( above, below, right, left) with 90% accuracy in order to improve receptive language skills for following commands. Mr. Fuentes will name an object described with 90% accuracy without visual cues in order to improve responsive naming. Mr. Fuentes will read a short paragraph (3-5 sentences) to himself and answer open ended questions about the content aloud with 90% accuracy in order to improve receptive language skills. Facility Manager Histology Goals Mr. Fuentes will demonstrate adequate expressive and receptive language skills and short term memory in order accurately convey complex ideas and to participate successfully in a conversational exchange. Treatment Activities Targeted reading comprehension of short paragraph and answering multiple choice questions, practiced semantic feature analysis to improve expressive language skills and word finding, provided homework for categories and word relationships. Assessment Patient Response to Treatment Good Rehab Potential Good Impairments Identified Auditory Comprehension Expressive Language Memory - Short Term Written Expression Progress Towards Goals Good Progress Assessment of Overall Progress Improving Assessment of Improvement Advanced short reading comprehension task on [employer] cecelia to level 3 for homework. Reviewed with Patient Progress Being Made Home Exercise Program Patient/Caregiver Understanding Good Plan Amount of Therapy Recommended 6 Months Frequency of Treatment Twice a Week Length of Session 45 Minutes Provided Patient/Caregiver Instruction Plan of Care Questions/Concerns Therapy Recommendations Continue with Current Program
--- NOTE | 2019-06-04 15:47 | ST.OPTN ---
Care Team Visit Care Team Role Provider Type Sindi Weinstein MD Attending Provider Physician Primary Care Provider Address: [address] [place] [address], [id number] EXTERN Treatment Note EXTERN Treatment Note Start: 04/23/19 11:01 Freq: Status: Active Protocol: Document 06/04/19 15:32 TLC (Rec: 06/04/19 15:47 TLC [id number]) Speech Pathology Treatment Note Session Time Visit Start Time 14:35 Visit Stop Time 15:18 Total Visit Minutes 43 Visit Information Visit Number 11 Plan of Care Dates 04/20/19-07/21/19 Insurance Information [facility]- Medicare Setting Treatment Setting Outpatient Care Visit Type Note Type Treatment Note Next Note Type Next Note Type Treatment Note General Information General Information Mr. Giles was admittted for coronary artery bypass grafting on March 03, 2019 at [facility] in [place]. Slurred speech and word finding difficulty were observed post op day [address] showed L MCA stroke. His deficits were aphasia, generalized weakness, decreased functional mobility, balance and R neglect. He received inpatient ST, OT and PT over the course of the 9 day hospitalization and then received inpatient rehab in [place] for ~ 2 weeks. Once home, he received home health ST, OT and PT through [facility]. 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 Subjective Identification Type Name Others Present Family Observations/Patient Presentation Alex arrived on time accompanied by his , Kamryn , who was present during the session. 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 Fuentes will follow directions with 3 elements including spatial concepts ( above, below, right, left) with 90% accuracy in order to improve receptive language skills for following commands. Mr. Fuentes will name an object described with 90% accuracy without visual cues in order to improve responsive naming. Mr. Fuentes will read a short paragraph (3-5 sentences) to himself and answer open ended questions about the content aloud with 90% accuracy in order to improve receptive language skills. Long-Term Goals Mr. Fuentes will demonstrate adequate expressive and receptive language skills and short term memory in order accurately convey complex ideas and to participate successfully in a conversational exchange. Treatment Activities Reviewed homework. Alex completed verbal reasoning worksheets for categorization. He did not have difficulty completed a which does not belong worksheet, but had significant difficulty with filling in a categorization gride with general category, subcategories and specific members. We targeted categories using visual maps. Alex has most difficulty naming subcategories. Assessment Patient Response to Treatment Good Rehab Potential Good Impairments Identified Auditory Comprehension Expressive Language Memory - Short Term Written Expression Progress Towards Goals Good Progress Assessment of Overall Progress Improving Assessment of Improvement Alex completed short term reading comprehension level 3 and long reading comprehension level 1 tasks with 100% accuracy at home. Reviewed with Patient Progress Being Made Home Exercise Program Patient/Caregiver Understanding Good Plan Amount of Therapy Recommended 5 Months Frequency of Treatment Twice a Week Length of Session 45 Minutes Provided Patient/Caregiver Instruction Plan of Care Questions/Concerns Therapy Recommendations Continue with Current Program
--- NOTE | 2019-06-08 16:25 | ST.OPTN ---
Care Team Visit Care Team Role Provider Type Sindi Weinstein MD Attending Provider Physician Primary Care Provider Address: [address] [place] [address], [id number] INDOOR LANDSCAPER/GARDENER Treatment Note INDOOR LANDSCAPER/GARDENER Treatment Note Start: 04/23/19 11:01 Freq: Status: Active Protocol: Document 06/08/19 16:21 TLC (Rec: 06/08/19 16:25 TLC [id number]) Speech Pathology Treatment Note Session Time Visit Start Time 14:30 Visit Stop Time 15:22 Total Visit Minutes 52 Visit Information Visit Number 12 Plan of Care Dates 04/20/19-07/21/19 Insurance Information [facility]- Medicare Setting Treatment Setting Outpatient Care Visit Type Note Type Treatment Note Next Note Type Next Note Type Treatment Note General Information General Information Mr. Giles was admitted for coronary artery bypass grafting on March 03, 2019 at [facility] in [place]. Slurred speech and word finding difficulty were observed post op day [address] showed L MCA stroke. His deficits were aphasia, generalized weakness, decreased functional mobility, balance and R neglect. He received inpatient ST, OT and PT over the course of the 9 day hospitalization and then received inpatient rehab in [place] for ~ 2 weeks. Once home, he received home health ST, OT and PT through [facility]. 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 Subjective Identification Type Name Others Present Family Observations/Patient Presentation Alex arrived on time accompanied by his , Kamryn , who was present during the session. 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 Fuentes will follow directions with 3 elements including spatial concepts ( above, below, right, left) with 90% accuracy in order to improve receptive language skills for following commands. Mr. Fuentes will name an object described with 90% accuracy without visual cues in order to improve responsive naming. Mr. Fuentes will read a short paragraph (3-5 sentences) to himself and answer open ended questions about the content aloud with 90% accuracy in order to improve receptive language skills. Assisted Goals Mr. Fuentes will demonstrate adequate expressive and receptive language skills and short term memory in order accurately convey complex ideas and to participate successfully in a conversational exchange. Treatment Activities Targeted picture category identification - level 3 - 100 % accuracy, targeted verbal expression for metaphors - good progress, completed semantic feature analysis for hard hat and papaya with min verbal cues Assessment Patient Response to Treatment Good Rehab Potential Good Impairments Identified Auditory Comprehension Expressive Language Memory - Short Term Written Expression Progress Towards Goals Good Progress Assessment of Overall Progress Improving Assessment of Improvement Kamryn Johnson has made another jump in progress. He is expressing himself more and is more attentive and anticipatory. For example, he initiated needing to buy more cat food. He is also doing more writing at home on his book. Reviewed with Patient Progress Being Made Home Exercise Program Patient/Caregiver Understanding Good Plan Amount of Therapy Recommended 5 Months Frequency of Treatment Twice a Week Length of Session 45 Minutes Provided Patient/Caregiver Instruction Plan of Care Questions/Concerns Therapy Recommendations Continue with Current Program
--- NOTE | 2019-06-12 15:22 | ST.OPTN ---
Visit Care Team Role Provider Type Sindi Weinstein MD Attending Provider Physician Primary Care Provider Address: [address] [place] [address], [id number] HEALTH SAFETY MANAGER Treatment Note HEALTH SAFETY MANAGER Treatment Note Start: 04/23/19 11:01 Freq: Status: Active Protocol: Document 06/12/19 13:30 TLC (Rec: 06/16/19 15:22 TLC [id number]) Speech Pathology Treatment Note Session Time Visit Start Time 13:30 Visit Stop Time 14:30 Total Visit Minutes 60 Visit Information Visit Number 13 Plan of Care Dates 04/20/19-07/21/19 Insurance Information [facility]- Medicare Setting Treatment Setting Outpatient Care Visit Type Note Type Treatment Note Next Note Type Next Note Type Treatment Note General Information General Information Mr. Giles was admitted for coronary artery bypass grafting on March 03, 2019 at [facility] in [place]. Slurred speech and word finding difficulty were observed post op day [address] showed L MCA stroke. His deficits were aphasia, generalized weakness, decreased functional mobility, balance and R neglect. He received inpatient ST, OT and PT over the course of the 9 day hospitalization and then received inpatient rehab in [place] for ~ 2 weeks. Once home, he received home health ST, OT and PT through [facility]. 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 Subjective Identification Type Name Others Present Family Observations/Patient Presentation Alex arrived on time accompanied by his , Kamryn , who was present during the session. 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 Fuentes will follow directions with 3 elements including spatial concepts ( above, below, right, left) with 90% accuracy in order to improve receptive language skills for following commands. Mr. Fuentes will name an object described with 90% accuracy without visual cues in order to improve responsive naming. - GOAL MET Mr. Fuentes will read a short paragraph (3-5 sentences) to himself and answer open ended questions about the content aloud with 90% accuracy in order to improve receptive language skills. Utility Service Worker Goals Mr. Fuentes will demonstrate adequate expressive and receptive language skills and short term memory in order accurately convey complex ideas and to participate successfully in a conversational exchange. Treatment Activities Discussed progress related to receptive and expressive language. Alex and his are both pleased with progress thus far. They report that lately, Alex has most difficulty with planning and executing everyday tasks such as making celery juice in a timely manner. We discussed cognitive functions and agreed on completing a cognitive evaluation today. The Cognitive Linguistic Quick Test (CLQT) was administered. Results are below. Assessment Patient Response to Treatment Good Rehab Potential Good Impairments Identified Auditory Comprehension, Expressive Language,Memory - Short Term,Written Expression Progress Towards Goals Good Progress Assessment of Overall Progress Improving Assessment of Improvement The following severity ratings were taken from results of the CLQT: Attention - severe impairment Memory - moderate impairment Executive function - moderate impairment Language - moderate impairment Visuospatial skills - moderate impairment. Alex answered questions about his time and place of and current address correctly, with a 5- second delay on one occasion, but was not oriented to his current age. On the symbol cancellation task, he correctly cancelled 9 out of 12 symbols, but made 11 errors of commission (incorrect symbols cancelled) which could be secondary to visual discrimination problems. He scored 10/10 on confrontational naming task. During clock drawing, points were lost for only 11 correct numbers, poor spacing, only one hand present and incorrectly pointing hands. During story retelling, he scored 5/18 possible points and 1/3 points on auditory comprehension. He scored 7/10 possible points on symbol trails which is a nonlinguistic task used to help asses planning, self- monitoring, working memory and visual attention. He named 8 correct animals in 1 minute and 4 correct m words in one minute earning 3 out of 9 possible points on generative naming. During the design memory task, he scored 3 out of 6 possible points with was likely due to impairments in visual discrimination and attention. Alex did not correctly solve either maze in the time limit resulting in a score of 0 out of 8 possible points on the maze task. Satisfactory performance on this task requires planning, mental flexibility, self- monitoring and visual discrimination. Lastly, Alex scored 3 out of 13 possible points during design generation which is a nonlinguistic task of creativity and mental flexibility. One design was perseverative; however, no other perseverative responses were observed during testing. Additionally, visual neglect or inattention to one side of space were not reflected in his performance. Patient/Caregiver Understanding Good Plan Amount of Therapy Recommended 5 Months Frequency of Treatment Twice a Week Length of Session 45 Minutes Provided Patient/Caregiver Instruction Plan of Care,Questions/ Concerns Therapy Recommendations Continue with Current Program
--- NOTE | 2019-06-18 15:46 | ST.OPTN ---
Visit Care Team Role Provider Type Sindi Weinstein MD Attending Provider Physician Primary Care Provider Address: [address] [place] [address], [id number] CHEESEMAKING LABORER Treatment Note CHEESEMAKING LABORER Treatment Note Start: 04/23/19 11:01 Freq: Status: Active Protocol: Document 06/18/19 15:42 TLC (Rec: 06/18/19 15:46 TLC [id number]) Speech Pathology Treatment Note Session Time Visit Start Time 14:30 Visit Stop Time 15:35 Total Visit Minutes 65 Visit Information Visit Number 14 Plan of Care Dates 04/20/19-07/21/19 Insurance Information [facility]- Medicare Setting Treatment Setting Outpatient Care Visit Type Note Type Treatment Note Next Note Type Next Note Type Treatment Note General Information General Information Mr. Giles was admitted for coronary artery bypass grafting on March 03, 2019 at [facility] in [place]. Slurred speech and word finding difficulty were observed post op day [address] showed L MCA stroke. His deficits were aphasia, generalized weakness, decreased functional mobility, balance and R neglect. He received inpatient ST, OT and PT over the course of the 9 day hospitalization and then received inpatient rehab in [place] for ~ 2 weeks. Once home, he received home health ST, OT and PT through [facility]. 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 Subjective Identification Type Name Others Present Family Observations/Patient Presentation Alex arrived on time accompanied by his , Kamryn , who was present during the session. 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 Fuentes will follow directions with 3 elements including spatial concepts ( above, below, right, left) with 90% accuracy in order to improve receptive language skills for following commands. Mr. Fuentes will name an object described with 90% accuracy without visual cues in order to improve responsive naming. - GOAL MET Mr. Fuentes will read a short paragraph (3-5 sentences) to himself and answer open ended questions about the content aloud with 90% accuracy in order to improve receptive language skills. Halfway Goals Mr. Fuentes will demonstrate adequate expressive and receptive language skills and short term memory in order accurately convey complex ideas and to participate successfully in a conversational exchange. Treatment Activities Reviewed results of CLQT and discussed attention, memory and executive functions and how these will be targeted in therapy. Completed activity for selective attention: card sorting by suit with background noise, and alternating attention: [place] things that are hot and cross out animals in a list of words . Assessment Patient Response to Treatment Good Rehab Potential Good Impairments Identified Auditory Comprehension, Expressive Language,Memory - Short Term,Written Expression Progress Towards Goals Good Progress Assessment of Overall Progress Improving Assessment of Improvement Good progress with sustained and selective attention, more difficulty observed with alternating attention which Kamryn reports is most difficult for him at home. Discussed ways to practice these at home and provided home exercise sheets. Patient/Caregiver Understanding Good Plan Amount of Therapy Recommended 4 Months Frequency of Treatment Twice a Week Length of Session 45 Minutes Provided Patient/Caregiver Instruction Plan of Care,Questions/ Concerns Therapy Recommendations Continue with Current Program
--- NOTE | 2019-06-25 13:16 | ST.OPTN ---
Visit Care Team Role Provider Type Sindi Weinstein MD Attending Provider Physician Primary Care Provider Address: [address] [place] [address], [id number] DIGITAL BUSINESS ANALYST Treatment Note DIGITAL BUSINESS ANALYST Treatment Note Start: 04/23/19 11:01 Freq: Status: Active Protocol: Document 06/25/19 13:13 TLC (Rec: 06/26/19 13:16 TLC [id number]) Speech Pathology Treatment Note Session Time Visit Start Time 13:30 Visit Stop Time 14:15 Total Visit Minutes 45 Visit Information Visit Number 16 Plan of Care Dates 04/20/19-07/21/19 Insurance Information [employer]- Medicare Setting Treatment Setting Outpatient Care Visit Type Note Type Treatment Note Next Note Type Next Note Type Treatment Note General Information General Information Mr. Giles was admitted for coronary artery bypass grafting on March 03, 2019 at [facility] in [place]. Slurred speech and word finding difficulty were observed post op day [address] showed L MCA stroke. His deficits were aphasia, generalized weakness, decreased functional mobility, balance and R neglect. He received inpatient ST, OT and PT over the course of the 9 day hospitalization and then received inpatient rehab in [place] for ~ 2 weeks. Once home, he received home health ST, OT and PT through [facility]. 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 Subjective Identification Type Name Others Present Family Observations/Patient Presentation Alex arrived on time accompanied by his , Kamryn , who was present during the session. 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 Fuentes will follow directions with 3 elements including spatial concepts ( above, below, right, left) with 90% accuracy in order to improve receptive language skills for following commands. Mr. Fuentes will name an object described with 90% accuracy without visual cues in order to improve responsive naming. - GOAL MET Mr. Fuentes will read a short paragraph (3-5 sentences) to himself and answer open ended questions about the content aloud with 90% accuracy in order to improve receptive language skills. Prison Goals Mr. Fuentes will demonstrate adequate expressive and receptive language skills and short term memory in order accurately convey complex ideas and to participate successfully in a conversational exchange. Treatment Activities Reviewed homework tasks targeting divided and alternating attention. Discussed ways to practice functional applications of sustained and divided attention. Targeted visuospatial scanning and attention for complex symbols in a large grid - 80% accuracy (level 5), targeted divided attention through tapping foot , counting, and answering yes /no questions during visual scanning and cancellation activities - 70%, targeted 1- back task - 100%, 2-back task ~45%. Assessment Patient Response to Treatment Good Rehab Potential Good Impairments Identified Auditory Comprehension, Expressive Language,Memory - Short Term,Written Expression Progress Towards Goals Good Progress Assessment of Overall Progress Improving Patient/Caregiver Understanding Good Plan Amount of Therapy Recommended 4 Months Frequency of Treatment Twice a Week Length of Session 45 Minutes Provided Patient/Caregiver Instruction Plan of Care,Questions/ Concerns Therapy Recommendations Continue with Current Program
--- NOTE | 2019-06-30 14:27 | ST.OPTN ---
Visit Care Team Role Provider Type Sindi Weinstein MD Attending Provider Physician Primary Care Provider Address: [address] [place] [address], [id number] BOAT MECHANIC Treatment Note BOAT MECHANIC Treatment Note Start: 04/23/19 11:01 Freq: Status: Active Protocol: Document 06/30/19 14:24 TLC (Rec: 06/30/19 14:27 TLC [id number]) Speech Pathology Treatment Note Session Time Visit Start Time 13:32 Visit Stop Time 14:22 Total Visit Minutes 50 Visit Information Visit Number 17 Plan of Care Dates 04/20/19-07/21/19 Insurance Information [facility]- Medicare Setting Treatment Setting Outpatient Care Visit Type Note Type Treatment Note Next Note Type Next Note Type Treatment Note General Information General Information Mr. Giles was admitted for coronary artery bypass grafting on March 03, 2019 at [facility] in [place]. Slurred speech and word finding difficulty were observed post op day [address] showed L MCA stroke. His deficits were aphasia, generalized weakness, decreased functional mobility, balance and R neglect. He received inpatient ST, OT and PT over the course of the 9 day hospitalization and then received inpatient rehab in [place] for ~ 2 weeks. Once home, he received home health ST, OT and PT through [facility]. 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 Subjective Identification Type Name Others Present Family Observations/Patient Presentation Alex arrived on time accompanied by his , Kamryn , who was present during the session. 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 Fuentes will follow directions with 3 elements including spatial concepts ( above, below, right, left) with 90% accuracy in order to improve receptive language skills for following commands. Mr. Fuentes will name an object described with 90% accuracy without visual cues in order to improve responsive naming. - GOAL MET Mr. Fuentes will read a short paragraph (3-5 sentences) to himself and answer open ended questions about the content aloud with 90% accuracy in order to improve receptive language skills. Group Home Goals Mr. Fuentes will demonstrate adequate expressive and receptive language skills and short term memory in order accurately convey complex ideas and to participate successfully in a conversational exchange. Treatment Activities Targeted divided attention through sorting card deck during verbal phrase completion. Targeted visual reasoning through finding 10 differences between two pictures in 3 minutes, targeted attention and working memory during 2-back task. Discussed progress and plan of care. Assessment Patient Response to Treatment Good Rehab Potential Good Impairments Identified Auditory Comprehension, Expressive Language,Memory - Short Term,Written Expression Progress Towards Goals Good Progress Assessment of Overall Progress Improving Patient/Caregiver Understanding Good Plan Amount of Therapy Recommended 3-4 Months Frequency of Treatment Twice a Week Length of Session 45 Minutes Provided Patient/Caregiver Instruction Plan of Care,Questions/ Concerns Therapy Recommendations Continue with Current Program
--- NOTE | 2019-07-03 13:26 | ST.OPTN ---
Visit Care Team Role Provider Type Sindi Weinstein MD Attending Provider Physician Primary Care Provider Address: [address] [place] [address], [id number] BEHAVIORAL HEALTH CLINICIAN Treatment Note BEHAVIORAL HEALTH CLINICIAN Treatment Note Start: 04/23/19 11:01 Freq: Status: Active Protocol: Document 07/03/19 13:22 TLC (Rec: 07/03/19 13:26 TLC [id number]) Speech Pathology Treatment Note Session Time Visit Start Time 12:30 Visit Stop Time 13:20 Total Visit Minutes 50 Visit Information Visit Number 18 Plan of Care Dates 04/20/19-07/21/19 Insurance Information [facility]- Medicare Setting Treatment Setting Outpatient Care Visit Type Note Type Treatment Note Next Note Type Next Note Type Treatment Note General Information General Information Mr. Giles was admitted for coronary artery bypass grafting on March 03, 2019 at [facility] in [place]. Slurred speech and word finding difficulty were observed post op day [address] showed L MCA stroke. His deficits were aphasia, generalized weakness, decreased functional mobility, balance and R neglect. He received inpatient ST, OT and PT over the course of the 9 day hospitalization and then received inpatient rehab in [place] for ~ 2 weeks. Once home, he received home health ST, OT and PT through [facility]. 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 Subjective Identification Type Name Others Present Family Observations/Patient Presentation Alex arrived on time accompanied by his , Kamryn , who was present during the session. 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 Fuentes will follow directions with 3 elements including spatial concepts ( above, below, right, left) with 90% accuracy in order to improve receptive language skills for following commands. Mr. Fuentes will name an object described with 90% accuracy without visual cues in order to improve responsive naming. - GOAL MET Mr. Fuentes will read a short paragraph (3-5 sentences) to himself and answer open ended questions about the content aloud with 90% accuracy in order to improve receptive language skills. Senior Living Goals Mr. Fuentes will demonstrate adequate expressive and receptive language skills and short term memory in order accurately convey complex ideas and to participate successfully in a conversational exchange. Treatment Activities Targeted map reading with spatial concepts - 90% given mod cues, extra time, 2-back task - 29% accuracy, assigned HEP for daily completion Assessment Patient Response to Treatment Good Rehab Potential Good Impairments Identified Auditory Comprehension, Expressive Language,Memory - Short Term,Written Expression Progress Towards Goals Good Progress Assessment of Overall Progress Improving Patient/Caregiver Understanding Good Plan Amount of Therapy Recommended 3-4 Months Frequency of Treatment Twice a Week Length of Session 45 Minutes Provided Patient/Caregiver Instruction Plan of Care,Questions/ Concerns Therapy Recommendations Continue with Current Program
--- NOTE | 2019-07-06 16:36 | ST.OPTN ---
Visit Care Team Role Provider Type Sindi Weinstein MD Attending Provider Physician Primary Care Provider Address: [address] [place] [address], [id number] ORACLE ERP ARCHITECT Treatment Note ORACLE ERP ARCHITECT Treatment Note Start: 04/23/19 11:01 Freq: Status: Active Protocol: Document 07/06/19 16:33 TLC (Rec: 07/06/19 16:36 TLC [id number]) Speech Pathology Treatment Note Session Time Visit Start Time 13:30 Visit Stop Time 14:27 Total Visit Minutes 57 Visit Information Visit Number 19 Plan of Care Dates 04/20/19-07/21/19 Insurance Information [facility]- Medicare Setting Treatment Setting Outpatient Care Visit Type Note Type Treatment Note Next Note Type Next Note Type Treatment Note General Information General Information Mr. Giles was admitted for coronary artery bypass grafting on March 03, 2019 at [facility] in [place]. Slurred speech and word finding difficulty were observed post op day [address] showed L MCA stroke. His deficits were aphasia, generalized weakness, decreased functional mobility, balance and R neglect. He received inpatient ST, OT and PT over the course of the 9 day hospitalization and then received inpatient rehab in [place] for ~ 2 weeks. Once home, he received home health ST, OT and PT through [facility]. 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 Subjective Identification Type Name Others Present Family Observations/Patient Presentation Alex arrived on time accompanied by his , Kamryn , who was present during the session. 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 Fuentes will follow directions with 3 elements including spatial concepts ( above, below, right, left) with 90% accuracy in order to improve receptive language skills for following commands. Mr. Fuentes will name an object described with 90% accuracy without visual cues in order to improve responsive naming. - GOAL MET Mr. Fuentes will read a short paragraph (3-5 sentences) to himself and answer open ended questions about the content aloud with 90% accuracy in order to improve receptive language skills. Custodial Goals Mr. Fuentes will demonstrate adequate expressive and receptive language skills and short term memory in order accurately convey complex ideas and to participate successfully in a conversational exchange. Treatment Activities Targeted 2-back task with cards, visual scanning for finding differences between two images and following 2- step directions with spatial concepts, Education provided regarding strategies for recalling 2-step directions - chunking, visualization Assessment Patient Response to Treatment Good Rehab Potential Good Impairments Identified Auditory Comprehension, Expressive Language,Memory - Short Term,Written Expression Progress Towards Goals Good Progress Assessment of Overall Progress Improving Assessment of Improvement Good progress with understanding spatial concepts Patient/Caregiver Understanding Good Plan Amount of Therapy Recommended 3-4 Months Frequency of Treatment Twice a Week Length of Session 45 Minutes Provided Patient/Caregiver Instruction Plan of Care,Questions/ Concerns Therapy Recommendations Continue with Current Program
--- NOTE | 2019-07-17 13:51 | ST.OPTN ---
Visit Care Team Role Provider Type Sindi Weinstein MD Attending Provider Physician Primary Care Provider Address: [address] [place] [address], [id number] MACHINE SHOP SUPERVISOR Treatment Note MACHINE SHOP SUPERVISOR Treatment Note Start: 04/23/19 11:01 Freq: Status: Active Protocol: Document 07/17/19 13:39 TLC (Rec: 07/17/19 13:51 TLC [id number]) Speech Pathology Treatment Note Session Time Visit Start Time 10:30 Visit Stop Time 11:20 Total Visit Minutes 50 Visit Information Visit Number 20 Plan of Care Dates 04/20/19-07/21/19 Insurance Information [facility]- Medicare Setting Treatment Setting Outpatient Care Visit Type Note Type Treatment Note Next Note Type Next Note Type Progress Note General Information General Information Mr. Giles was admitted for coronary artery bypass grafting on March 03, 2019 at [facility] in [place]. Slurred speech and word finding difficulty were observed post op day [address] showed L MCA stroke. His deficits were aphasia, generalized weakness, decreased functional mobility, balance and R neglect. He received inpatient ST, OT and PT over the course of the 9 day hospitalization and then received inpatient rehab in [place] for ~ 2 weeks. Once home, he received home health ST, OT and PT through [facility]. 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 Subjective Identification Type Name Others Present Family Observations/Patient Presentation Alex arrived on time accompanied by his , Kamryn , who was present during the session. 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 Fuentes will follow directions with 3 elements including spatial concepts ( above, below, right, left) with 90% accuracy in order to improve receptive language skills for following commands. Mr. Fuentes will name an object described with 90% accuracy without visual cues in order to improve responsive naming. - GOAL MET Mr. Fuentes will read a short paragraph (3-5 sentences) to himself and answer open ended questions about the content aloud with 90% accuracy in order to improve receptive language skills. Longterm Goals Mr. Fuentes will demonstrate adequate expressive and receptive language skills and short term memory in order accurately convey complex ideas and to participate successfully in a conversational exchange. Treatment Activities Targeted auditory memory, sequencing and understanding spatial concepts by following one and two step directions. Targeted working memory during 2-back task. Targeted visual memory during 5 step pattern recreation. Assessment Patient Response to Treatment Good Rehab Potential Good Impairments Identified Auditory Comprehension, Expressive Language,Memory - Short Term,Written Expression Progress Towards Goals Good Progress Assessment of Overall Progress Improving Patient/Caregiver Understanding Good Plan Amount of Therapy Recommended 2-3 Months Frequency of Treatment Twice a Week Length of Session 45 Minutes Provided Patient/Caregiver Instruction Plan of Care,Questions/ Concerns Therapy Recommendations Continue with Current Program
--- NOTE | 2019-07-20 14:19 | ST.OPPOC ---
Visit Care Team Role Provider Type Sindi Weinstein MD Attending Provider Physician Primary Care Provider Address: [address] [place] [address], [place], [id number] Speech Pathology Plan of Care General Information Mr. Giles was admitted for coronary artery bypass grafting on March 03, 2019 at [facility] in [place]. Slurred speech and word finding difficulty were observed post op day [address] showed L MCA stroke. His deficits were aphasia, generalized weakness, decreased functional mobility, balance and R neglect. He received inpatient ST, OT and PT over the course of the 9 day hospitalization and then received inpatient rehab in [place] for ~ 2 weeks. Once home, he received home health ST, OT and PT through [facility]. 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 Visit Number 21 Plan of Care Dates 07/20/19-10/20/19 Insurance Information [facility]- Medicare Patient Doris Johnson arrived on time accompanied by his group fitness assistant department head, Merline, who was present during the session. 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 Fuentes will follow directions with 3 elements including spatial concepts (above, below, right, left) with 90% accuracy in order to improve receptive language skills for following commands. - GOAL MET Mr. Fuentes will name an object described with 90% accuracy without visual cues in order to improve responsive naming. - GOAL MET Mr. Fuentes will read a short paragraph (3-5 sentences) to himself and answer open ended questions about the content aloud with 90% accuracy in order to improve receptive language skills. - 60% accuracy New goal: Mr. Fuentes will remember to look at his daily schedule each night and recall daily activities per caregiver report with minimal prompts. Mcfp Goals Mr. Fuentes will demonstrate adequate expressive and receptive language skills and short term memory in order accurately convey complex ideas and to participate successfully in a conversational exchange. Treatment Activities Auditory commands (1-step with spatial concepts) - 95% accuracy, answer questions about 3-5 sentence paragraph read to himself - 60% accuracy, able to recall main idea, but had difficulty with recall of details, 4 step pattern recreation for visual memory - 50% accuracy Rehabilitation Potential Good Impairments Identified Auditory Comprehension,Expressive Language, Memory - Short Term,Written Expression Progress Towards Goals Good Progress Assessment of Improvement Alex has met goals for word finding and following directions for spatial concepts. 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 He continues to have difficulty with underlying cognitive processes of memory, attention and executive functions requiring prompts/cues. Reviewed with Patient Progress Being Made,Home Exercise Program Patient Understanding Good Length of Therapy Recommended 2-3 Months Treatment Frequency Twice a Week Treatment Duration 45 Minutes Patient Recommendations Continue with Current Pro Please Sign and Return: I have reviewed this Plan of Care and certify that the skilled therapy services above are required to meet the patient?s needs. Physician Signature Date Printed Name and Credentials
--- NOTE | 2019-07-23 15:36 | ST.OPTN ---
Visit Care Team Role Provider Type Sindi Weinstein MD Attending Provider Physician Primary Care Provider Address: [address] [place] [address], [id number] TAX ACCOUNTING MANAGER Treatment Note TAX ACCOUNTING MANAGER Treatment Note Start: 04/23/19 11:01 Freq: Status: Active Protocol: Document 07/23/19 15:25 TLC (Rec: 07/23/19 15:36 TLC [id number]) Speech Pathology Treatment Note Session Time Visit Start Time 13:30 Visit Stop Time 14:45 Total Visit Minutes 75 Visit Information Visit Number 22 Plan of Care Dates 07/20/19-10/20/19 Insurance Information [facility]- Medicare Setting Treatment Setting Outpatient Care Visit Type Note Type Treatment Note Next Note Type Next Note Type Treatment Note General Information General Information Mr. Giles was admitted for coronary artery bypass grafting on March 03, 2019 at [facility] in [place]. Slurred speech and word finding difficulty were observed post op day [address] showed L MCA stroke. His deficits were aphasia, generalized weakness, decreased functional mobility, balance and R neglect. He received inpatient ST, OT and PT over the course of the 9 day hospitalization and then received inpatient rehab in [place] for ~ 2 weeks. Once home, he received home health ST, OT and PT through [facility]. 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 Subjective Identification Type Name Others Present Family Observations/Patient Presentation Alex arrived on time accompanied by his , Kamryn , who was present during the session. Patient Knowledge/Awareness of TAX ACCOUNTING MANAGER Role Good in Treatment Objective Short Term Goals Mr. Fuentes will follow 2-step directions with including spatial concepts (above, below , right, left) with 90% accuracy in order to improve receptive language skills for following commands. Mr. Fuentes will read a short paragraph (3-5 sentences) to himself and answer open ended questions about the content aloud with 90% accuracy in order to improve receptive language skills. - 60% accuracy Mr. Fuentes will remember to look at his daily schedule each night and recall daily activities per caregiver report with minimal prompts. Alf Goals Mr. Fuentes will demonstrate adequate expressive and receptive language skills and short term memory in order accurately convey complex ideas and to participate successfully in a conversational exchange. Treatment Activities Targeted processing speed and spatial concepts during following directions task with picture cards. Reviewed progress and discussed plan including strategies to improve memory of daily events at home including use of calendar and alarm on smart phone and implementing daily routine. Assessment Patient Response to Treatment Good Rehab Potential Good Impairments Identified Auditory Comprehension, Expressive Language,Memory - Short Term,Written Expression Progress Towards Goals Good Progress Assessment of Overall Progress Improving Assessment of Improvement Alex continues to make great progress toward goals. 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 Patient/Caregiver Understanding Good Plan Amount of Therapy Recommended 2-3 Months Frequency of Treatment Once a Week Length of Session 45 Minutes Provided Patient/Caregiver Instruction Plan of Care,Questions/ Concerns Therapy Recommendations Decrease Frequency of Rehabilitation
--- NOTE | 2019-08-05 15:39 | ST.OPTN ---
Visit Care Team Role Provider Type Sindi Weinstein MD Attending Provider Physician Primary Care Provider Address: [address] [place] [address], [id number] IMMERSION METAL CLEANER Treatment Note IMMERSION METAL CLEANER Treatment Note Start: 04/23/19 11:01 Freq: Status: Active Protocol: Document 08/05/19 15:35 TLC (Rec: 08/05/19 15:39 TLC [id number]) Speech Pathology Treatment Note Session Time Visit Start Time 10:30 Visit Stop Time 11:20 Total Visit Minutes 50 Visit Information Visit Number 23 Plan of Care Dates 07/20/19-10/20/19 Insurance Information [facility]- Medicare Setting Treatment Setting Outpatient Care Visit Type Note Type Treatment Note Next Note Type Next Note Type Treatment Note General Information General Information Mr. Giles was admitted for coronary artery bypass grafting on March 03, 2019 at [facility] in [place]. Slurred speech and word finding difficulty were observed post op day [address] showed L MCA stroke. His deficits were aphasia, generalized weakness, decreased functional mobility, balance and R neglect. He received inpatient ST, OT and PT over the course of the 9 day hospitalization and then received inpatient rehab in [place] for ~ 2 weeks. Once home, he received home health ST, OT and PT through [facility]. 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 Subjective Identification Type Name Others Present Family Observations/Patient Presentation Alex arrived on time accompanied by his , Kamryn , who was present during the session. Patient Knowledge/Awareness of IMMERSION METAL CLEANER Role Good in Treatment Objective Short Term Goals Mr. Fuentes will follow 2-step directions with including spatial concepts (above, below , right, left) with 90% accuracy in order to improve receptive language skills for following commands. Mr. Fuentes will read a short paragraph (3-5 sentences) to himself and answer open ended questions about the content aloud with 90% accuracy in order to improve receptive language skills. - 60% accuracy Mr. Fuentes will remember to look at his daily schedule each night and recall daily activities per caregiver report with minimal prompts. Care Home Goals Mr. Fuentes will demonstrate adequate expressive and receptive language skills and short term memory in order accurately convey complex ideas and to participate successfully in a conversational exchange. Treatment Activities Targeted formulating, typing and sending text messages. Modified phone layout to increase size of keyboard for ease of scanning due to slow rate of finding letters. Targeted recall of two step directions and following directions with spatial concepts. Assessment Patient Response to Treatment Good Rehab Potential Good Impairments Identified Auditory Comprehension, Expressive Language,Memory - Short Term,Written Expression Progress Towards Goals Good Progress Assessment of Overall Progress Improving Assessment of Improvement Good progress with language related skills, continues to have slow processing requiring extra time for most tasks. Patient/Caregiver Understanding Good Plan Amount of Therapy Recommended 2 Months Frequency of Treatment Once a Week Length of Session 45 Minutes Provided Patient/Caregiver Instruction Plan of Care,Questions/ Concerns Therapy Recommendations Continue with Current Program
--- NOTE | 2019-08-10 12:19 | ST.OPTN ---
Visit Care Team Role Provider Type Sindi Weinstein MD Attending Provider Physician Primary Care Provider Address: [address] [place] [address], [id number] DOG WALKER Treatment Note DOG WALKER Treatment Note Start: 04/23/19 11:01 Freq: Status: Active Protocol: Document 08/10/19 11:50 TLC (Rec: 08/10/19 12:19 TLC [id number]) Speech Pathology Treatment Note Session Time Visit Start Time 10:30 Visit Stop Time 11:30 Total Visit Minutes 60 Visit Information Visit Number 24 Plan of Care Dates 07/20/19-10/20/19 Insurance Information [facility]- Medicare Setting Treatment Setting Outpatient Care Visit Type Note Type Treatment Note Next Note Type Next Note Type Treatment Note General Information General Information Mr. Giles was admitted for coronary artery bypass grafting on March 03, 2019 at [facility] in [place]. Slurred speech and word finding difficulty were observed post op day [address] showed L MCA stroke. His deficits were aphasia, generalized weakness, decreased functional mobility, balance and R neglect. He received inpatient ST, OT and PT over the course of the 9 day hospitalization and then received inpatient rehab in [place] for ~ 2 weeks. Once home, he received home health ST, OT and PT through [facility]. 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 Subjective Identification Type Name Others Present Family Observations/Patient Presentation Alex arrived on time accompanied by his , Kamryn , who was present during the session. Patient Knowledge/Awareness of DOG WALKER Role Good in Treatment Objective Short Term Goals Mr. Fuentes will follow 2-step directions with including spatial concepts (above, below , right, left) with 90% accuracy in order to improve receptive language skills for following commands. Mr. Fuentes will read a short paragraph (3-5 sentences) to himself and answer open ended questions about the content aloud with 90% accuracy in order to improve receptive language skills. - 60% accuracy Mr. Fuentes will remember to look at his daily schedule each night and recall daily activities per caregiver report with minimal prompts. Senior Living Goals Mr. Fuentes will demonstrate adequate expressive and receptive language skills and short term memory in order accurately convey complex ideas and to participate successfully in a conversational exchange. Treatment Activities Targeted memory and processing speed for recall of 1 and 2 step directions. Discussed thought processing, processing speed and memory (coding, storage,retrieval) for different types of information . Assessment Patient Response to Treatment Good Rehab Potential Good Impairments Identified Auditory Comprehension, Expressive Language,Memory - Short Term,Written Expression Progress Towards Goals Good Progress Assessment of Overall Progress Improving Assessment of Improvement Alex is beginning to time how long it takes for him to complete daily activities and work towards improving his time. He continues to make progress toward all goals. Patient/Caregiver Understanding Good Plan Amount of Therapy Recommended 2 Months Frequency of Treatment Once a Week Length of Session 45 Minutes Provided Patient/Caregiver Instruction Plan of Care,Questions/ Concerns Therapy Recommendations Continue with Current Program
--- NOTE | 2019-08-25 12:24 | ST.OPTN ---
Visit Care Team Role Provider Type Sindi Weinstein MD Attending Provider Physician Primary Care Provider Address: [address] [place] [address], [id number] HVAC R TECH Treatment Note HVAC R TECH Treatment Note Start: 04/23/19 11:01 Freq: Status: Active Protocol: Document 08/25/19 12:17 TLC (Rec: 08/25/19 12:23 TLC [id number]) Speech Pathology Treatment Note Session Time Visit Start Time 10:30 Visit Stop Time 11:20 Total Visit Minutes 50 Visit Information Visit Number 25 Plan of Care Dates 07/20/19-10/20/19 Insurance Information [facility]- Medicare Setting Treatment Setting Outpatient Care Visit Type Note Type Treatment Note Next Note Type Next Note Type Treatment Note General Information General Information Mr. Giles was admitted for coronary artery bypass grafting on March 03, 2019 at [facility] in [place]. Slurred speech and word finding difficulty were observed post op day [address] showed L MCA stroke. His deficits were aphasia, generalized weakness, decreased functional mobility, balance and R neglect. He received inpatient ST, OT and PT over the course of the 9 day hospitalization and then received inpatient rehab in [place] for ~ 2 weeks. Once home, he received home health ST, OT and PT through [facility]. 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 Subjective Identification Type Name Others Present Family Observations/Patient Presentation Alex arrived on time accompanied by his endodontic assistant, Merline, who was present during the session. Patient Knowledge/Awareness of HVAC R TECH Role Good in Treatment Objective Short Term Goals Mr. Fuentes will follow 2-step directions with including spatial concepts (above, below , right, left) with 90% accuracy in order to improve receptive language skills for following commands. Mr. Fuentes will read a short paragraph (3-5 sentences) to himself and answer open ended questions about the content aloud with 90% accuracy in order to improve receptive language skills. - 60% accuracy Mr. Fuentes will remember to look at his daily schedule each night and recall daily activities per caregiver report with minimal prompts. Snf Goals Mr. Fuentes will demonstrate adequate expressive and receptive language skills and short term memory in order accurately convey complex ideas and to participate successfully in a conversational exchange. Treatment Activities Review of internal memory aids for coding, storage and retrieval of auditory information. Practiced use of strategies for recall of 3 word list ~70% accuracy with min cues. Discussed tips for remembering where his phone is at home and checklist before leaving the house. Assessment Patient Response to Treatment Good Rehab Potential Good Impairments Identified Auditory Comprehension, Expressive Language,Memory - Short Term,Written Expression Progress Towards Goals Good Progress Assessment of Overall Progress Improving Patient/Caregiver Understanding Good Plan Amount of Therapy Recommended 2 Months Frequency of Treatment Once a Week Length of Session 45 Minutes Provided Patient/Caregiver Instruction Plan of Care,Questions/ Concerns Therapy Recommendations Continue with Current Program
--- NOTE | 2019-08-28 14:30 | ST.OPTN ---
Visit Care Team Role Provider Type Sindi Weinstein MD Attending Provider Physician Primary Care Provider Address: [address] [place] [address], [id number] FILTER CLEANER Treatment Note FILTER CLEANER Treatment Note Start: 04/23/19 11:01 Freq: Status: Active Protocol: Document 08/28/19 14:25 TLC (Rec: 08/28/19 14:30 TLC [id number]) Speech Pathology Treatment Note Session Time Visit Start Time 13:30 Visit Stop Time 14:25 Total Visit Minutes 55 Visit Information Visit Number 26 Plan of Care Dates 07/20/19-10/20/19 Insurance Information [facility]- Medicare Setting Treatment Setting Outpatient Care Visit Type Note Type Treatment Note Next Note Type Next Note Type Treatment Note General Information General Information Mr. Giles was admitted for coronary artery bypass grafting on March 03, 2019 at [facility] in [place]. Slurred speech and word finding difficulty were observed post op day [address] showed L MCA stroke. His deficits were aphasia, generalized weakness, decreased functional mobility, balance and R neglect. He received inpatient ST, OT and PT over the course of the 9 day hospitalization and then received inpatient rehab in [place] for ~ 2 weeks. Once home, he received home health ST, OT and PT [facility]. Subjective Identification Type Name Others Present Family Observations/Patient Presentation Alex arrived on time accompanied by his , Kamryn , who was present during the session. Patient Knowledge/Awareness of FILTER CLEANER Role Good in Treatment Objective Short Term Goals Mr. Fuentes will follow 2-step directions with including spatial concepts (above, below , right, left) with 90% accuracy in order to improve receptive language skills for following commands. Mr. Fuentes will read a short paragraph (3-5 sentences) to himself and answer open ended questions about the content aloud with 90% accuracy in order to improve receptive language skills. - 60% accuracy Mr. Fuentes will remember to look at his daily schedule each night and recall daily activities per caregiver report with minimal prompts. [facility] Goals Mr. Fuentes will demonstrate adequate expressive and receptive language skills and short term memory in order accurately convey complex ideas and to participate successfully in a conversational exchange. Treatment Activities Review of visualization, association and mnemonic devices as internal memory aids. Targeted picture-name recall implementing strategies discussed with moderate cues. Assessment Patient Response to Treatment Good Rehab Potential Good Impairments Identified Auditory Comprehension, Expressive Language,Memory - Short Term,Written Expression Progress Towards Goals Good Progress Assessment of Overall Progress Improving Patient/Caregiver Understanding Good Plan Amount of Therapy Recommended 2 Months Frequency of Treatment Once a Week Length of Session 45 Minutes Provided Patient/Caregiver Instruction Plan of Care,Questions/ Concerns Therapy Recommendations Continue with Current Program
--- NOTE | 2019-09-04 15:31 | ST.OPTN ---
Visit Care Team Role Provider Type Sindi Weinstein MD Attending Provider Physician Primary Care Provider Address: [address] [place] [address], [id number] BOARDER MACHINE Treatment Note BOARDER MACHINE Treatment Note Start: 04/23/19 11:01 Freq: Status: Active Protocol: Document 09/04/19 15:25 TLC (Rec: 09/04/19 15:30 TLC [id number]) Speech Pathology Treatment Note Session Time Visit Start Time 13:30 Visit Stop Time 14:30 Total Visit Minutes 60 Visit Information Visit Number 27 Plan of Care Dates 07/20/19-10/20/19 Insurance Information [facility]- Medicare Setting Treatment Setting Outpatient Care Visit Type Note Type Treatment Note Next Note Type Next Note Type Treatment Note General Information General Information Mr. Giles was admitted for coronary artery bypass grafting on March 03, 2019 at [facility] in [place]. Slurred speech and word finding difficulty were observed post op day [address] showed L MCA stroke. His deficits were aphasia, generalized weakness, decreased functional mobility, balance and R neglect. He received inpatient ST, OT and PT over the course of the 9 day hospitalization and then received inpatient rehab in [place] for ~ 2 weeks. Once home, he received home health ST, OT and PT [facility]. Subjective Identification Type Name Others Present Family Observations/Patient Presentation Alex arrived on time accompanied by his , Kamryn , who was present during the session. Patient Knowledge/Awareness of BOARDER MACHINE Role Good in Treatment Objective Short Term Goals Mr. Fuentes will follow 2-step directions with including spatial concepts (above, below , right, left) with 90% accuracy in order to improve receptive language skills for following commands. Mr. Fuentes will read a short paragraph (3-5 sentences) to himself and answer open ended questions about the content aloud with 90% accuracy in order to improve receptive language skills. - 60% accuracy Mr. Fuentes will remember to look at his daily schedule each night and recall daily activities per caregiver report with minimal prompts. Group Home Goals Mr. Fuentes will demonstrate adequate expressive and receptive language skills and short term memory in order accurately convey complex ideas and to participate successfully in a conversational exchange. Treatment Activities Completed executive skills questionnaire and discussed executive functions including planning, sequencing, organizing and self-reflecting . Discussed implementing a plan, do, review strategy for completing common activities such as going to the grocery store. Assessment Patient Response to Treatment Good Rehab Potential Good Impairments Identified Auditory Comprehension, Expressive Language,Memory - Short Term,Written Expression Progress Towards Goals Good Progress Assessment of Overall Progress Improving Patient/Caregiver Understanding Good Plan Amount of Therapy Recommended 2 Months Frequency of Treatment Once a Week Length of Session 45 Minutes Provided Patient/Caregiver Instruction Plan of Care,Questions/ Concerns Therapy Recommendations Continue with Current Program
--- NOTE | 2019-09-25 09:31 | ST.OPTN ---
Visit Care Team Role Provider Type Sindi Weinstein MD Attending Provider Physician Primary Care Provider Address: [address] [place] [address], [id number] NURSING HOME ADMINISTRATOR Treatment Note NURSING HOME ADMINISTRATOR Treatment Note Start: 04/23/19 11:01 Freq: Status: Active Protocol: Document 09/25/19 09:26 TLC (Rec: 09/28/19 09:31 TLC [id number]) Speech Pathology Treatment Note Session Time Visit Start Time 13:30 Visit Stop Time 14:15 Total Visit Minutes 45 Visit Information Visit Number 28 Plan of Care Dates 07/20/19-10/20/19 Insurance Information [facility]- Medicare Setting Treatment Setting Outpatient Care Visit Type Note Type Treatment Note Next Note Type Next Note Type Treatment Note General Information General Information Mr. Giles was admitted for coronary artery bypass grafting on March 03, 2019 at [facility] in [place]. Slurred speech and word finding difficulty were observed post op day [address] showed L MCA stroke. His deficits were aphasia, generalized weakness, decreased functional mobility, balance and R neglect. He received inpatient ST, OT and PT over the course of the 9 day hospitalization and then received inpatient rehab in [place] for ~ 2 weeks. Once home, he received home health ST, OT and PT [facility]. Subjective Identification Type Name Others Present Family Observations/Patient Presentation Alex arrived on time accompanied by his kindergarten instructional assistant, Merline who was present during the session. Patient Knowledge/Awareness of NURSING HOME ADMINISTRATOR Role Good in Treatment Objective Short Term Goals Mr. Fuentes will follow 2-step directions with including spatial concepts (above, below , right, left) with 90% accuracy in order to improve receptive language skills for following commands. Mr. Fuentes will read a short paragraph (3-5 sentences) to himself and answer open ended questions about the content aloud with 90% accuracy in order to improve receptive language skills. - 60% accuracy Mr. Fuentes will remember to look at his daily schedule each night and recall daily activities per caregiver report with minimal prompts. [place] Goals Mr. Fuentes will demonstrate adequate expressive and receptive language skills and short term memory in order accurately convey complex ideas and to participate successfully in a conversational exchange. 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 Education provided regarding word finding strategies, typical vs. atypical dysfluencies and strategies to enhance overall speech fluency. Assessment Patient Response to Treatment Good Rehab Potential Good Impairments Identified Auditory Comprehension, Expressive Language,Memory - Short Term,Written Expression Progress Towards Goals Good Progress Assessment of Overall Progress Improving Assessment of Improvement Alex continues to make progress in the areas of cognition and language. 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 He identified an area of difficulty as using pronouns I/you correctly. We discussed increasing awareness with help from coworkers or family members. Patient/Caregiver Understanding Good Plan Amount of Therapy Recommended 1-2 Months Frequency of Treatment Once a Week Length of Session 45 Minutes Provided Patient/Caregiver Instruction Plan of Care,Questions/ Concerns Therapy Recommendations Continue with Current Program
--- NOTE | 2019-09-29 15:12 | ST.OPTN ---
Visit Care Team Role Provider Type Sindi Weinstein MD Attending Provider Physician Primary Care Provider Address: [address] [place] [address], [id number] LINING MARKER Treatment Note LINING MARKER Treatment Note Start: 04/23/19 11:01 Freq: Status: Active Protocol: Document 09/29/19 15:06 TLC (Rec: 09/29/19 15:12 TLC [id number]) Speech Pathology Treatment Note Session Time Visit Start Time 11:30 Visit Stop Time 12:20 Total Visit Minutes 50 Visit Information Visit Number 29 Plan of Care Dates 07/20/19-10/20/19 Insurance Information [facility]- Medicare Setting Treatment Setting Outpatient Care Visit Type Note Type Treatment Note Next Note Type Next Note Type Treatment Note General Information General Information Mr. Giles was admitted for coronary artery bypass grafting on March 03, 2019 at [facility] in [place]. Slurred speech and word finding difficulty were observed post op day [address] showed L MCA stroke. His deficits were aphasia, generalized weakness, decreased functional mobility, balance and R neglect. He received inpatient ST, OT and PT over the course of the 9 day hospitalization and then received inpatient rehab in [place] for ~ 2 weeks. Once home, he received home health ST, OT and PT through [facility]. [facility]. Subjective Identification Type Name Others Present Family Observations/Patient Presentation Alex arrived on time accompanied by his , Kamryn and his social science research assistant, Marilyn who were present during the session. Patient Knowledge/Awareness of LINING MARKER Role Good in Treatment Objective Short Term Goals Mr. Fuentes will follow 2-step directions with including spatial concepts (above, below , right, left) with 90% accuracy in order to improve receptive language skills for following commands. Mr. Fuentes will read a short paragraph (3-5 sentences) to himself and answer open ended questions about the content aloud with 90% accuracy in order to improve receptive language skills. - 60% accuracy Mr. Fuentes will remember to look at his daily schedule each night and recall daily activities per caregiver report with minimal prompts. Oracle Fusion Middleware Architect Goals Mr. Fuentes will demonstrate adequate expressive and receptive language skills and short term memory in order accurately convey complex ideas and to participate successfully in a conversational exchange. Treatment Activities Higher level word finding targeted by explaining and using figurative language and naming two synonyms for words. Discussed strategies for improving attention and processing during times of overstimulation such as at [place] parties or airports, which were identified as settings of difficulty by the patient. Strategies discussed included noise reducing head phones, finding areas and making time to take breaks from the overstimulating environment. We also discussed conversational strategies including being honest and asking for repetitions/ clarifications as needed or taking breaks from conversations for mental rest. Assessment Patient Response to Treatment Good Rehab Potential Good Impairments Identified Auditory Comprehension, Expressive Language,Memory - Short Term,Written Expression Progress Towards Goals Good Progress Assessment of Overall Progress Improving Patient/Caregiver Understanding Good Plan Amount of Therapy Recommended 1-2 Months Frequency of Treatment Once a Week Length of Session 45 Minutes Provided Patient/Caregiver Instruction Plan of Care,Questions/ Concerns Therapy Recommendations Continue with Current Program
--- NOTE | 2019-10-22 15:59 | ST.OPPOC ---
Physical, Occupational & Speech Therapy At [facility] Visit Care Team Role Provider Type Sindi Weinstein MD Attending Provider Physician Primary Care Provider Address: [address] [place] [address], [place], [id number] Speech Pathology Plan of Care General Information Mr. Giles was admitted for coronary artery bypass grafting on March 03, 2019 at [facility] in [place]. Slurred speech and word finding difficulty were observed post op day [address] showed L MCA stroke. His deficits were aphasia, generalized weakness, decreased functional mobility, balance and R neglect. He received inpatient ST, OT and PT over the course of the 9 day hospitalization and then received inpatient rehab in [place] for ~ 2 weeks. Once home, he received home health ST, OT and PT through [facility]. He now [facility], PT and OT. Visit Number 30 Plan of Care Dates 10/22/19-01/21/20 Insurance Information [employer]- Medicare Patient Comments Alex arrived on time accompanied by his who was present during the session. Alex was fatigued today from meeting with clients and not sleeping well. 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 Fuentes will follow 2-step directions with including spatial concepts (above, below, right, left) with 90% accuracy in order to improve receptive language skills for following commands . Mr. Fuentes will read a short paragraph (3-5 sentences) to himself and answer open ended questions about the content aloud with 90% accuracy in order to improve receptive language skills. - 60% accuracy Mr. Fuentes will remember to look at his daily schedule each night and recall daily activities per caregiver report with minimal prompts. Jigger Crown Pouncing Machine Operator Goals Mr. Fuentes will demonstrate adequate expressive and receptive language skills and short term memory in order accurately convey complex ideas and to participate successfully in a conversational exchange. Treatment Activities Targeted understanding of pronouns: matching pronouns he/she/they to pictures - 100% accuracy , fill in the blank with the correct pronoun - 100% accuracy with extra time, reviewed internal strategies for recall including visualization, use of acronyms. Completed short term recall of details from a short story - 4/4. Discussed importance of adequate rest and overall affect of fatigue on mental capability. Rehabilitation Potential Good Impairments Identified Auditory Comprehension,Expressive Language, Memory - Short Term,Written Expression Progress Towards Goals Good Progress Assessment of Improvement Alex completed a driving test in [facility] which consisted of 4 parts including a written driving test, reaction/response time and a cognitive screen. Per his doctor, he will need to re-take the test before he is cleared to drive. He scored 17/30 on the SLUMs today; however, this was not felt to be truly indicative of his cognitive function when he is well-rested and not fatigued. Reviewed with Patient Progress Being Made,Home Exercise Program Patient Understanding Good Length of Therapy Recommended 1-2 Months Treatment Frequency Once a Week Treatment Duration 45 Minutes Patient Recommendations Continue with Current Pro Electronically Signed by: JESSICA Rey 10/22/19 [id number]
--- NOTE | 2019-11-11 14:02 | ST.OPTN ---
Visit Care Team Role Provider Type Sindi Weinstein MD Attending Provider Physician Primary Care Provider Address: [address] [place] [address], [id number] UNIFIED COMMUNICATIONS ARCHITECT Treatment Note UNIFIED COMMUNICATIONS ARCHITECT Treatment Note Start: 04/23/19 11:01 Freq: Status: Active Protocol: Document 11/11/19 13:55 TLC (Rec: 11/11/19 14:02 TLC [id number]) Speech Pathology Treatment Note Session Time Visit Start Time 10:30 Visit Stop Time 11:20 Total Visit Minutes 50 Visit Information Visit Number 31 Plan of Care Dates 10/22/19-01/21/20 Insurance Information [facility]- Medicare Setting Treatment Setting Outpatient Care Visit Type Note Type Treatment Note Next Note Type Next Note Type Treatment Note General Information General Information Mr. Giles was admitted for coronary artery bypass grafting on March 03, 2019 at [facility] in [place]. Slurred speech and word finding difficulty were observed post op day [address] showed L MCA stroke. His deficits were aphasia, generalized weakness, decreased functional mobility, balance and R neglect. He received inpatient ST, OT and PT over the course of the 9 day hospitalization and then received inpatient rehab in [place] for ~ 2 weeks. Once home, he received home health ST, OT and PT through [facility]. Subjective Identification Type Name Others Present Family Observations/Patient Presentation Alex arrived on time accompanied by his actuarial assistant Merline who was present during the session. Patient Knowledge/Awareness of UNIFIED COMMUNICATIONS ARCHITECT Role Good in Treatment Objective Short Term Goals Mr. Fuentes will follow 2-step directions with including spatial concepts (above, below , right, left) with 90% accuracy in order to improve receptive language skills for following commands. Mr. Fuentes will read a short paragraph (3-5 sentences) to himself and answer open ended questions about the content aloud with 90% accuracy in order to improve receptive language skills. - 60% accuracy Mr. Fuentes will remember to look at his daily schedule each night and recall daily activities per caregiver report with minimal prompts. Bioassayist Goals Mr. Fuentes will demonstrate adequate expressive and receptive language skills and short term memory in order accurately convey complex ideas and to participate successfully in a conversational exchange. Treatment Activities Discussed progress since last session three weeks ago. 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 HE reports significantly less stress associated with overstimulation at the airport and he received great feedback from the seminar participants. He completed word problems related to time with 100% accuracy. He filled in the blank with correct pronouns to describe a given picture with 100% accuracy. Assessment Patient Response to Treatment Good Rehab Potential Good Impairments Identified Auditory Comprehension, Expressive Language,Memory - Short Term,Written Expression Progress Towards Goals Good Progress Assessment of Overall Progress Improving Assessment of Improvement Alex and his actuarial assistant, Merline report ongoing difficulty with pronoun usage in conversation . Alex reports he works on divergent naming tasks at home and has developed strategies to assist with naming items in categories such as sorting by colors. He is also practicing telling time at home. Home exercises program consisting of time telling and word problems was provided. We discussed addressing confusion with pronouns as those instances arise in conversation. Patient/Caregiver Understanding Good Plan Amount of Therapy Recommended 1-2 Months Frequency of Treatment Once a Week Length of Session 45 Minutes Provided Patient/Caregiver Instruction Plan of Care,Questions/ Concerns Therapy Recommendations Continue with Current Program
--- NOTE | 2020-06-30 14:36 | ST.OPDS ---
Visit Care Team Role Provider Type Sindi Weinstein MD Attending Provider Physician Primary Care Provider Address: [address] [place] [address], [id number] PRODUCTION OPERATIONS MANAGER Discharge Note PRODUCTION OPERATIONS MANAGER Treatment Note Start: 04/23/19 11:01 Freq: Status: Active Protocol: Document 11/11/19 13:55 TLC (Rec: 11/11/19 14:02 TLC [id number]) Speech Pathology Treatment Note General Information General Information Mr. Giles was admitted for coronary artery bypass grafting on March 03, 2019 at [facility] in [place]. Slurred speech and word finding difficulty were observed post op day [address] showed L MCA stroke. His deficits were aphasia, generalized weakness, decreased functional mobility, balance and R neglect. He received inpatient ST, OT and PT over the course of the 9 day hospitalization and then received inpatient rehab in [place] for ~ 2 weeks. Once home, he received home health ST, OT and PT through [facility]. He now receives outpatiet ST, PT and OT. Objective Short Term Goals Mr. Fuentes will follow 2-step directions with including spatial concepts (above, below , right, left) with 90% accuracy in order to improve receptive language skills for following commands. Mr. Fuentes will read a short paragraph (3-5 sentences) to himself and answer open ended questions about the content aloud with 90% accuracy in order to improve receptive language skills. - 60% accuracy ABANDON GOALS - D/c from ST Mr. Fuentes will remember to look at his daily schedule each night and recall daily activities per caregiver report with minimal prompts. Long-Term Goals Mr. Fuentes will demonstrate adequate expressive and receptive language skills and short term memory in order accurately convey complex ideas and to participate successfully in a conversational exchange. Assessment Plan Amount of Therapy Recommended d/c from ST, last visit 11/11/19
== END 2020-07-01 14:54 ==
LOC: SP 10:30
PROVIDERS: PCP Internal Medicine; Visit Provider Internal Medicine
DX: I63.9 Cerebral infarction, unspecified (principal)
CPT/HCPCS: 92507; 92523; 96105; 96125; 97129; 97130

== ENCOUNTER 2019-11-18 19:09 | Emergency (ER) | payer OTHER, SELFPAY ==
[2019-11-18 19:15] VITALS: BP 162/76; PULSE 82; RESP 18; TEMP 36.9; O2SAT 98
--- NOTE | 2019-11-18 19:24 | ED.RECABL ---
HPI - Recheck/Abnormal Lab/Rx General Chief Complaint: Recheck/Abnormal Lab/Rx Stated Complaint: high potassium Time Seen by Provider: 11/18/19 19:18 Source: patient and family Mode of arrival: Ambulatory Related Data Home Medications Medication Instructions Recorded Confirmed DILTIAZEM HCL (DILT-CD) 180 mg PO QDAY #0 04/21/13 clopidogrel [Plavix] 75 mg PO QDAY #0 04/21/13 losartan [Cozaar] 50 mg PO QDAY #0 04/21/13 CA PANTOTHENATE/FOLIC ACID/VIT 1 tab PO QDAY #0 04/24/13 (MULTIVITAMIN) Previous Rx's Medication Instructions Recorded omeprazole magnesium [Prilosec OTC] 20 mg PO QDAY #30 10/04/16 ondansetron [Zofran ODT] 4 mg SUBLINGUAL Q4HP PRN #15 odt 10/04/16 Allergies Allergy/AdvReac Type Severity Reaction Status Date / Time codeine [CODEINE] Allergy Unknown Unverified 01/22/18 12:54 levofloxacin [From LEVAQUIN] Allergy Unknown Unverified 01/22/18 12:54 Exam Initial Vital Signs Initial Vital Signs: Vital Signs Temperature 98.4 F 11/18/19 19:15 Pulse Rate 82 11/18/19 19:15 Respiratory Rate 18 11/18/19 19:15 Blood Pressure 162/76 H 11/18/19 19:15 Pulse Oximetry 98 11/18/19 19:15 Course Orders Ordered: ED Orders 11/18/19 19:18 Basic Metabolic Panel Stat EKG-12 Lead Stat Vital Signs Vital signs: Vital Signs - 8 hr 11/18/19 19:15 Temperature 98.4 F Pulse Rate 82 Respiratory Rate 18 Blood Pressure 162/76 H Pulse Oximetry 98 Discharge Plan Departure Prescriptions: No Action losartan [Cozaar] 50 MG tablet 50 mg PO QDAY Qty: 0 RF: 0 clopidogrel [Plavix] 75 MG tablet 75 mg PO QDAY Qty: 0 RF: 0 DILTIAZEM HCL (DILT-CD) 180 mg PO QDAY Qty: 0 RF: 0 CA PANTOTHENATE/FOLIC ACID/VIT (MULTIVITAMIN) 1 tab PO QDAY Qty: 0 RF: 0 omeprazole magnesium [Prilosec OTC] 20 MG tablet,delayed release (DR/EC) 20 mg PO QDAY Qty: 30 RF: 0 ondansetron [Zofran ODT] 4 MG tablet,disintegrating 4 mg Sublingual Q4HP PRNQty: 15 RF: 0
[2019-11-18 19:45] LABS: BUN Creatinine Ratio 21.9 (6-22); Blood Urea Nitrogen 35 mg/dL (9-20); Calcium 8.6 mg/dL (8.4-10.2); Carbon Dioxide 22 mmol/L (22-32); Chloride 106 mmol/L (98-107); Estimated Glomerular Filt Rate 41.9 mL/min (>60); Glucose 123 mg/dL (80-110); HEMOLYSIS < 15 (0-50); Potassium 4.6 mmol/L (3.4-5.1); Sodium 139 mmol/L (137-145)
[2019-11-18 19:46] VITALS: BP 162/73; PULSE 55; RESP 18; O2SAT 98
[2019-11-18 20:32] VITALS: BP 162/85; PULSE 59; RESP 18; O2SAT 98
--- NOTE | 2019-11-18 22:24 | ED_ITS ---
HPI - Recheck/Abnormal Lab/Rx <FLORINDA Lozano - Last Filed: 11/18/19 22:53> General Chief Complaint: Recheck/Abnormal Lab/Rx Stated Complaint: high potassium Time Seen by Provider: 11/18/19 19:18 Source: patient and family Mode of arrival: Ambulatory Limitations: no limitations History of Present Illness HPI narrative: This is a 79-year-old male, nonsmoker, who presents to ED with his spouse in request of potassium check. Patient denies chest pain, breathing difficulty, dizziness, muscle weakness or tremor but some tingling sensation in his hands and mild balance difficulty. Patient was seen by his slip cover cutter, Dr. Hurst, yesterday at the [facility] as a routine appointment and had blood drawn at the clinic. Patient has history of CABG 8 [facility] ago at [facility] an appointment when well and Dr. Hurst was pleased with patient's current progress and his next appointment is within 1 year. However, today the patient received a phone call and was informed his potassium was 5.6. Patient reports yesterday blood drawn took a long time and he was a hard drop. Dr. Hurst mentioned this could be of hemolyzed sample but when patient mentioned he had tingling in his hands and mild balance difficulty patient was told to going to ED and get labs drawn SUMAYA. Related Data Home Medications Medication Instructions Recorded Confirmed losartan [Cozaar] 50 mg PO QDAY #0 04/21/13 CA PANTOTHENATE/FOLIC ACID/VIT 1 tab PO QDAY #0 04/24/13 (MULTIVITAMIN) apixaban [Eliquis] mg 11/18/19 metoprolol tartrate 11/18/19 tamsulosin mg PO 11/18/19 Allergies Allergy/AdvReac Type Severity Reaction Status Date / Time codeine [CODEINE] Allergy Unknown Unverified 01/22/18 12:54 levofloxacin [From LEVAQUIN] Allergy Unknown Unverified 01/22/18 12:54 Review of Systems <FLORINDA Lozano - Last Filed: 11/18/19 22:53> Review of Systems Narrative: General: Denies fever, chills, fatigue, malaise, sweats. HEENT: Denies sinus pain, ear pain, sore throat, difficulty swallowing, dizziness. Respiratory: Denies dyspnea, cough, wheezing, hemoptysis, sputum. Cardiovascular: Denies chest pain, palpitations, orthopnea, edema. Gastrointestinal: Denies nausea, vomiting, abdominal pain, diarrhea, constipation, melena. : Denies dysuria, frequency, incontinence, hematuria, urinary retention. Musculoskeletal: Denies weakness, joint pain or bony pain. Skin: Denies rash, skin lesions, or other. Neurologic: Denies weakness, headache, numbness, change in speech, confusion, seizures, (+) incoordination and (+) bilateral hand tingling. Psychiatric: No concerning psychosocial issues. 12-point review of systems is negative except for those stated above. Patient History <FLORINDA Lozano - Last Filed: 11/18/19 22:53> Medical History BPH (benign prostatic hyperplasia) (Acute) Hypertension (Acute) Surgical History Hx of CABG (Acute) Social History Smoking Status: Former smoker Smoking Status: Former smoker Exam <FLORINDA Lozano - Last Filed: 11/18/19 22:53> Narrative Exam Narrative: GEN: Alert, oriented x 3, well appearing and nourished, and in no acute distress. Head: Normal cephalic, atraumatic. No scalp or temporal tenderness, palpable mass or rash. EYES: Pupils are equal, round, and reactive to light and accommodation. Extraocular muscles are intact bilaterally. There is no subconjunctival hemorrhage, exudate and sclera non-icteric. ENT: Bilateral auditory canals and tympanic membranes clear. Hearing grossly intact. Nose without bleeding, purulent discharge or deviation. Facial sinuses nontender to palpate. Mucous membrane moist, no mucosal lesion. Throat without erythema, tonsillar hypertrophy or exudate. Uvula in midline, airway patent. Neck: Trachea in midline. No JVD, non-tender without lymphadenopathy. No masses or thyroid megaly. Supple, non-tender and no meningeal signs. CARDIAC: Normal regular bradycardia without murmurs, gallops, or rubs. No chest wall tenderness. No peripheral edema, cyanosis or pallor. Capillary refill is less than 2 seconds. RESPIRATORY: Lungs are clear to auscultate bilaterally. No cough, wheezes, rales, or rhonchi. No stridor, respiratory distress, increase work of breathing, or accessary muscle used. ABD: Abdomen soft, nontender and non-distended. No guarding or rebound tenderness to palpate. Bowel sounds are normal in all 4 quadrants. There is no palpable masses or organomegaly. EXT: Full painless ROM of all extremities with no loss of sensation, strength, effusion or edema. SKIN: Warm, dry, normal color for patient. No erythema, lesions or rash over visible areas. BACK: Nontender without deformity or crepitance. No flank tenderness. NEUROLOGICAL: Alert and oriented to place, time and person. Sensation and motor function intact bilaterally. No facial droops, dysphasia. PSYCHIATRIC: Good judgement and reason, without hallucinations, abnormal affect or abnormal behaviors during the examination. Initial Vital Signs Initial Vital Signs: Vital Signs Temperature 98.4 F 11/18/19 19:15 Pulse Rate 82 11/18/19 19:15 Respiratory Rate 18 11/18/19 19:15 Blood Pressure 162/76 H 11/18/19 19:15 Pulse Oximetry 98 11/18/19 19:15 <Reji Rendon DO - Last Filed: 11/18/19 23:42> Initial Vital Signs Initial Vital Signs: Vital Signs Temperature 98.4 F 11/18/19 19:15 Pulse Rate 82 11/18/19 19:15 Respiratory Rate 18 11/18/19 19:15 Blood Pressure 162/76 H 11/18/19 19:15 Pulse Oximetry 98 11/18/19 19:15 Scores <FLORINDA Lozano - Last Filed: 11/18/19 22:53> GCS Ayad coma scale eye opening: Spontaneous [place] coma scale verbal response: Orientated Ayad coma scale motor response: Obey commands Ayad coma scale total score: 15 Course <FLORINDA Lozano - Last Filed: 11/18/19 22:53> Orders Ordered: ED Orders 11/18/19 19:18 EKG-12 Lead Stat 11/18/19 19:22 Basic Metabolic Panel Stat Vital Signs Vital signs: Vital Signs - 8 hr 11/18/19 19:15 11/18/19 19:46 11/18/19 20:32 Temperature 98.4 F Pulse Rate 82 55 L 59 L Respiratory Rate 18 18 18 Blood Pressure 162/76 H 162/85 H Blood Pressure [Right Arm] 162/73 H Pulse Oximetry 98 98 98 <Reji Rendon DO - Last Filed: 11/18/19 23:42> Orders Ordered: ED Orders 11/18/19 19:18 EKG-12 Lead Stat 11/18/19 19:22 Basic Metabolic Panel Stat Vital Signs Vital signs: Vital Signs - 8 hr 11/18/19 19:15 11/18/19 19:46 11/18/19 20:32 Temperature 98.4 F Pulse Rate 82 55 L 59 L Respiratory Rate 18 18 18 Blood Pressure 162/76 H 162/85 H Blood Pressure [Right Arm] 162/73 H Pulse Oximetry 98 98 98 MDM - Recheck/Abnormal Lab/Rx <FLORINDA Lozano - Last Filed: 11/18/19 22:53> Differential Diagnosis Differential diagnosis: Likely other (encounter for blood test for potassion for hyperkalemia, normal potassium, hypokalemia) Medical Records Attestation: I reviewed the patient's medical records. Lab Data Attestation: I reviewed the patient's lab results. Result diagrams: 11/18/19 19:22 Labs: Lab Results 11/18/19 Range/Units 19:22 Sodium 139 (137-145) mmol/L Potassium 4.6 (3.4-5.1) mmol/L Chloride 106 (98-107) mmol/L Carbon Dioxide 22 (22-32) mmol/L BUN 35 H (9-20) mg/dL Creatinine 1.60 H (0.66-1.25) mg/dL Estimated GFR 41.9 L (>60) mL/min BUN/Creatinine Ratio 21.9 (6-22) Glucose 123 H (80-110) mg/dL Calcium 8.6 (8.4-10.2) mg/dL ECG Data Attestation: I personally reviewed and interpreted this ECG as follows: Prior ECG tracings: available for review Interpretation: Sinus bradycardia rate at 57. Left [place] Dominant CA int 207, QRS dur 101, QT/QTc 445/438 Left anterior fascicular block Left ventricular hypertrophy and ST change which is not significant changes from the previous EKG in I, aVL, V5-V6 MDM Narrative Medical decision making narrative: Repeat potassium was drawn today and it was 4.6. Given patient reported it took a long time for the blood draw at the clinic yesterday, it is likely hemolyzed sample yesterday at the clinic. EKG sinus Jr rate of 58 and patient is taking better stewart currently along losartan. Spouse informed patient to continue with his current medication and give a call tomorrow at the clinic to inform patient had normal potassium result tonight. Return precautions were discussed with the patient and they both verbalized understanding and agrees with the treatment plan. <Reji Rendon, DO - Last Filed: 11/18/19 23:42> Lab Data Labs: Lab Results 11/18/19 Range/Units 19:22 Sodium 139 (137-145) mmol/L Potassium 4.6 (3.4-5.1) mmol/L Chloride 106 (98-107) mmol/L Carbon Dioxide 22 (22-32) mmol/L BUN 35 H (9-20) mg/dL Creatinine 1.60 H (0.66-1.25) mg/dL Estimated GFR 41.9 L (>60) mL/min BUN/Creatinine Ratio 21.9 (6-22) Glucose 123 H (80-110) mg/dL Calcium 8.6 (8.4-10.2) mg/dL Discharge Plan Departure Patient Disposition: Home Clinical Impression: Encounter for blood test Discharge Date/Time: 11/18/19 20:31 Activity Restrictions/Additional Instructions: You have been diagnosed with [encounter for repeat blood test for potassium. Denies potassium level is 4.6 with your baseline decreased kidney function test. Creatinine of 1.6 with GFR of 41.9. It appears to be mildly dehydrated per blood test result.]. What to do: *Take your medications as directed. *Please call your slip cover cutter tomorrow morning and let Dr. Hurst know of the result. Let them know you were seen in the ED and that we asked you to be seen in follow up. *Return to ED if you have any new, worsening, or concerning symptoms, such as [chest pain, breathing difficulty, muscle spasm, muscle weakness, nausea or vomiting, or any acute concerns]. Prescriptions: No Action losartan [Cozaar] 50 MG tablet 50 mg PO QDAY Qty: 0 RF: 0 CA PANTOTHENATE/FOLIC ACID/VIT (MULTIVITAMIN) 1 tab PO QDAY Qty: 0 RF: 0 metoprolol tartrate 25 mg tablet RF: 0 Eliquis 5 mg tablet RF: 0 tamsulosin 0.4 mg capsule PO RF: 0 Referrals: Mateo Nayak MD [Primary Care Provider] - <Reji Rendon, - Last Filed: 11/18/19 23:42> Sign Out Provider Sign Out Attestation: Dr Rendon Co-Sign Statement: I was available for consultation during this patient's emergency department visit. This chart is signed by myself for administrative purposes only. I did not have direct contact with this patient during this visit. They were seen independently by the APC.
== END 2019-11-18 20:31 | disposition home or self-care (01) ==
PROVIDERS: Emergency Medicine; Emergency Provider Nurse Practitioner Family; PCP Internal Medicine
DX: Z01.89 Encounter for other specified special examinations (principal); R07.9 Chest pain, unspecified
CPT/HCPCS: 36415; 80048; 93005; 99284

== ENCOUNTER 2019-12-08 16:27 | Emergency (ER) | payer OTHER, SELFPAY ==
[2019-12-08 16:36] VITALS: BP 136/66; PULSE 56; RESP 15; TEMP 36.5; O2SAT 99; BMI 24.3
[2019-12-08 17:24] LABS: Alanine Aminotransferase 26 IU/L (<50); Albumin 4.2 g/dL (3.5-5.0); Alkaline Phosphatase 61 U/L (38-126); Aspartate Aminotransferase 44 IU/L (17-59); BUN Creatinine Ratio 19.5 (6-22); Bilirubin Total 0.4 mg/dL (0.2-1.3); Blood Urea Nitrogen 41 mg/dL (9-20); Calcium 8.9 mg/dL (8.4-10.2); Carbon Dioxide 26 mmol/L (22-32); Chloride 108 mmol/L (98-107); Estimated Glomerular Filt Rate 30.6 mL/min (>60); Globulin 4.2 g/dL (1.7-4.1); Glucose 86 mg/dL (80-110); HEMOLYSIS 16 (0-50); Sodium 143 mmol/L (137-145); Total Protein 8.4 g/dL (6.3-8.2)
--- NOTE | 2019-12-08 18:04 | ED.RECABL ---
HPI - Recheck/Abnormal Lab/Rx General Chief Complaint: Recheck/Abnormal Lab/Rx Stated Complaint: states high potassium Time Seen by Provider: 12/08/19 18:02 Source: patient Mode of arrival: Ambulatory Limitations: no limitations History of Present Illness HPI narrative: 79-year-old male here for evaluation for an abnormal lab value. Patient states that several days ago he had labs drawn by his primary doctor. He states that they received a phone call today about having an elevated potassium. Patient has no symptoms. He was instructed to come to the emergency department for evaluation. Related Data Home Medications Medication Instructions Recorded Confirmed losartan [Cozaar] 75 mg PO BID #0 04/21/13 12/08/19 multivitamin 1 tab PO DAILY #0 04/24/13 12/08/19 apixaban [Eliquis] 5 mg PO BID 11/18/19 12/08/19 metoprolol tartrate 25 mg PO BID 11/18/19 12/08/19 tamsulosin 0.4 mg PO BID 11/18/19 12/08/19 amlodipine 5 mg PO DAILY 12/08/19 12/08/19 thyroid (pork) [Nature-Throid] 65 mg PO DAILY 12/08/19 Allergies Allergy/AdvReac Type Severity Reaction Status Date / Time codeine [CODEINE] Allergy Unknown Verified 12/08/19 16:36 levofloxacin [From LEVAQUIN] Allergy Unknown Verified 12/08/19 16:36 Review of Systems Constitutional Constitutional: Denies fever(s) Cardiovascular Cardiovascular: Denies chest pain and Denies dyspnea Respiratory Respiratory: Denies dyspnea Gastrointestinal Gastrointestinal: Denies melena and Denies vomiting Genitourinary Genitourinary: Denies dysuria Musculoskeletal Musculoskeletal: Denies myalgias and Denies arthralgias Integumentary/Breasts Skin/Breast: Denies lesions and Denies rash Neurologic Neurologic: Denies behavioral changes Psychiatric Psychiatric: Denies behavioral changes Hematologic/Lymphatic Hematologic/Lymphatic: Denies easy bleeding and Denies easy bruising Allergic/Immunologic Allergic/Immunologic: Denies urticaria Patient History Medical History BPH (benign prostatic hyperplasia) (Acute) Hypertension (Acute) Social History Smoking Status: Former smoker Smoking Status: Former smoker alcohol intake frequency: holidays/special occasions only Substance Use Type: does not use Exam Initial Vital Signs Initial Vital Signs: Vital Signs Temperature 97.7 F 12/08/19 16:36 Pulse Rate 56 L 12/08/19 16:36 Respiratory Rate 15 12/08/19 16:36 Blood Pressure 136/66 12/08/19 16:36 Pulse Oximetry 99 12/08/19 16:36 Const General: cooperative, comfortable, well developed and well groomed [facility] Head: normal to inspection and normocephalic Resp Effort & Inspection: normal respiratory effort Cardio Rate: regular rate GI Inspection: non-distended Skin Lesions: no lesions Rashes: no rashes Neuro General: alert and awake Extrem General: normal to inspection and capillary refill normal Course Orders Ordered: ED Orders 12/08/19 16:52 CMP [Comprehensive Metabolic Panel] Stat Vital Signs Vital signs: Vital Signs - 8 hr 12/08/19 16:36 Temperature 97.7 F Pulse Rate 56 L Respiratory Rate 15 Blood Pressure 136/66 Pulse Oximetry 99 MDM - Recheck/Abnormal Lab/Rx Lab Data Attestation: I reviewed the patient's lab results. Result diagrams: 12/08/19 16:52 Labs: Lab Results 12/08/19 Range/Units 16:52 Sodium 143 (137-145) mmol/L Potassium 5.0 (3.4-5.1) mmol/L Chloride 108 H (98-107) mmol/L Carbon Dioxide 26 (22-32) mmol/L BUN 41 H (9-20) mg/dL Creatinine 2.10 H (0.66-1.25) mg/dL Estimated GFR 30.6 L (>60) mL/min BUN/Creatinine Ratio 19.5 (6-22) Glucose 86 (80-110) mg/dL Calcium 8.9 (8.4-10.2) mg/dL Total Bilirubin 0.4 (0.2-1.3) mg/dL AST 44 (17-59) IU/L ALT 26 (<50) IU/L Alkaline Phosphatase 61 (38-126) U/L Total Protein 8.4 H (6.3-8.2) g/dL Albumin 4.2 (3.5-5.0) g/dL Globulin 4.2 H (1.7-4.1) g/dL Albumin/Globulin Ratio 1.0 (1.0-2.8) MDM Narrative Medical decision making narrative: Patient's potassium today is unremarkable. He is asymptomatic. Does have a slightly elevated creatinine however is being seen by Nephrology for this. He has an appointment later this week with Nephrology. No further workup needed in the emergency department. Patient and given return precautions and follow-up instructions. He expressed understanding and agreement with plan. Discharge Plan Departure Patient Disposition: Home Clinical Impression: Examination for, laboratory Discharge Date/Time: 12/08/19 18:27 Activity Restrictions/Additional Instructions: Continue all of your medications as directed. Recommend that you keep all of your scheduled medical appointments. Return to the emergency department for any new or worsening symptoms Prescriptions: No Action losartan [Cozaar] 50 MG tablet 75 mg PO BID Qty: 0 RF: 0 multivitamin Tablet 1 tab PO DAILY Qty: 0 RF: 0 metoprolol tartrate 25 mg tablet 25 mg PO BID RF: 0 Eliquis 5 mg tablet 5 mg PO BID RF: 0 tamsulosin 0.4 mg capsule 0.4 mg PO BID RF: 0 amlodipine 5 mg tablet 5 mg PO DAILY RF: 0 Nature-Throid 32.5 mg tablet 65 mg PO DAILY RF: 0 Referrals: Mateo Nayak MD [Primary Care Provider] -
== END 2019-12-08 18:27 | disposition home or self-care (01) ==
PROVIDERS: Emergency Medicine; Emergency Provider Emergency Medicine; PCP Internal Medicine
DX: E87.5 Hyperkalemia (principal)
CPT/HCPCS: 36415; 80053; 99283

== ENCOUNTER 2020-06-23 13:15 | Emergency (ER) | payer OTHER, SELFPAY ==
[2020-06-23] VITALS (21 sets, daily range): BP systolic 149–208; BP diastolic 67–93; PULSE 58–79; RESP 9–23; TEMP 36.6; O2SAT 96–99; BMI 24.3
--- NOTE | 2020-06-23 13:37 | DI.CT.S_ITS ---
PROCEDURE: CT HEAD/BRAIN WO CON INDICATIONS: inabiility to walk TECHNIQUE: Noncontrast 4.5 mm thick angled axial sections acquired from the foramen magnum to the vertex, with coronal and sagittal reformats. For radiation dose reduction, the following was used: automated exposure control, adjustment of mA and/or kV according to patient size. COMPARISON: [facility], MRI HEAD W/O CONTRAST, 10/16/2004, 11:39. FINDINGS: Image quality: Excellent. CSF spaces: Basal cisterns are patent. No extra-axial fluid collections. There is mild cerebral volume loss, with resultant ventricular and sulcal prominence. Brain: No intracranial hemorrhage, mass, or mass effect. There is a small region of encephalomalacia involving the left frontal lobe and a larger region of encephalomalacia involving the left posterior parietal, posterior temporal, and occipital lobes. There is also a small region of encephalomalacia in the right frontal lobe. There is effacement of the morales-white matter junction in the right occipital lobe with associated cortical and subcortical hypoattenuation. The findings are compatible with sequelae of an infarct of indeterminate acuity and possibly subacute. 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 There are subcortical, periventricular and deep white matter hypodensities consistent with mild chronic small vessel ischemic changes. There is intracranial internal carotid artery atherosclerosis. Skull and face: Calvarium and visualized facial bones appear intact, without suspicious lesions. Sinuses: Visualized sinuses and mastoids are clear. IMPRESSION: 1. Small region of cortical and subcortical hypoattenuation with effacement of the morales-white matter junction in the right occipital lobe. The findings are compatible with sequelae of a small infarct of indeterminate acuity, including a possible subacute infarct. Recommend correlation with clinical history and further evaluation with MRI if clinically indicated. 2. Bilateral areas of encephalomalacia demonstrated as described consistent with sequelae of chronic infarcts. Given the multifocal distribution, the findings suggest embolic disease. 3. No acute intracranial hemorrhage. Dictated by: Jorge Alberto Lopez M.D. on 06/23/2020 at 13:53 Approved by: Jorge Alberto Lopez M.D. on 06/23/2020 at 13:59
[2020-06-23 13:50] LABS: Add Manual Diff / Slide Review NO; Basophils Absolute Auto 100 /uL (0-100); Basophils Percent Auto 1.1 % (0-2); Eosinophils Absolute Auto 700 /uL (0-450); Eosinophils Percent Auto 8.1 % (2-4); Lymphocytes Absolute Auto 1900 /uL (1100-4500); Lymphocytes Percent Auto 23.2 % (25-40); Mean Corpuscular HGB Conc 33.2 % (30-36); Mean Corpuscular Volume 87.2 fL (80-100); Monocytes Absolute Auto 800 /uL (0-900); Monocytes Percent Auto 9.7 % (3-14); Neutrophils Absolute Auto 4800 /uL (1500-7000); Neutrophils Percent Auto 57.9 % (50-75); Platelet Count 267 X10^3/uL (150-400); Red Blood Cell Count 4.82 X10^6/uL (4.5-5.9); Red Cell Distribution Width 16.4 % (11.6-14.8); White Blood Cell Count 8.3 X10^3/uL (4.5-11.0)
[2020-06-23] MEDS: SODIUM CHLORIDE 0.9% 1,000 ML 150 ML IV (13:56)
[2020-06-23 14:07] LABS: Alanine Aminotransferase 31 IU/L (<50); Albumin Globulin Ratio 1.1 (1.0-2.8); Alkaline Phosphatase 74 U/L (38-126); Aspartate Aminotransferase 45 IU/L (17-59); BUN Creatinine Ratio 12.3 (6-22); Bilirubin Total 0.5 mg/dL (0.2-1.3); Blood Urea Nitrogen 21 mg/dL (9-20); Calcium 8.8 mg/dL (8.4-10.2); Carbon Dioxide 29 mmol/L (22-32); Chloride 103 mmol/L (98-107); Creatine Kinase 102 U/L (55-170); Estimated Glomerular Filt Rate 38.8 mL/min (>60); Globulin 3.8 g/dL (1.7-4.1); Glucose 90 mg/dL (80-110); HEMOLYSIS < 15 (0-50); Potassium 4.5 mmol/L (3.4-5.1); Sodium 137 mmol/L (137-145); Total Protein 7.8 g/dL (6.3-8.2)
--- NOTE | 2020-06-23 14:12 | ED.NEUROSD ---
HPI - Neuro Symptoms/Deficit General Chief Complaint: Neuro Symptoms/Deficit Stated Complaint: walking funny/ unstable on legs Time Seen by Provider: 06/23/20 13:21 Source: family Mode of arrival: Wheelchair History of Present Illness HPI Narrative: the patient is a 79-year-old male with history of stroke immediately following his CABG is and has expressive aphasia On Eliquis presenting today with difficulty ambulating. states that 2 nights ago he started having some trouble. He has not fallen or hit his head. however when he stands he really feels like his hips and pelvis are unstable and presenting him from walking. He is not any more confused than he normally is states that he is at baseline. He has not had any infectious symptoms no cough fever or vomiting. Onset (ago): day(s) (2) Timing confirmed by: spouse On Anticoagulants: Yes Related Data Home Medications Medication Instructions Recorded Confirmed losartan [Cozaar] 75 mg PO BID #0 04/21/13 12/08/19 multivitamin 1 tab PO DAILY #0 04/24/13 12/08/19 apixaban [Eliquis] 5 mg PO BID 11/18/19 12/08/19 metoprolol tartrate 25 mg PO BID 11/18/19 12/08/19 tamsulosin 0.4 mg PO BID 11/18/19 12/08/19 amlodipine 5 mg PO DAILY 12/08/19 12/08/19 thyroid (pork) [Nature-Throid] 65 mg PO DAILY 12/08/19 Previous Rx's Medication Instructions Recorded atorvastatin 40 mg PO BEDTIME #30 tab 06/23/20 Allergies Allergy/AdvReac Type Severity Reaction Status Date / Time codeine [CODEINE] Allergy Unknown Verified 06/23/20 13:25 levofloxacin [From LEVAQUIN] Allergy Unknown Verified 06/23/20 13:25 Review of Systems Review of Systems ROS Unobtainable: All systems reviewed & are unremarkable except as noted in HPI and below Constitutional Constitutional: Denies chills, Denies fever(s), Denies lethargy and Denies weakness Eyes Eyes: Denies change in vision, Denies eye discharge, Denies irritation and Denies loss of vision Cardiovascular Cardiovascular: Denies chest pain, Denies irregular heart rhythm, Denies lightheadedness, Denies palpitations, Denies dyspnea, Denies dyspnea on exertion and Denies orthopnea Respiratory Respiratory: Denies cough, Denies dyspnea, Denies dyspnea on exertion and Denies wheezing Musculoskeletal Musculoskeletal: Reports as per HPI Integumentary/Breasts Skin/Breast: Denies pruritus, Denies erythema, Denies rash and Denies wounds Neurologic Neurologic: Reports as per HPI, Denies loss of vision and Denies weakness Endocrine Endocrine: Denies palpitations Allergic/Immunologic Allergic/Immunologic: Denies wheezing Patient History Medical History BPH (benign prostatic hyperplasia) (Acute) CVA (cerebral vascular accident) (Acute) Hypertension (Acute) Surgical History Hx of CABG (Acute) Social History household members: spouse Smoking Status: Former smoker Smoking Status: Former smoker alcohol intake frequency: holidays/special occasions only Substance Use Type: does not use Exam Initial Vital Signs Initial Vital Signs: Vital Signs Temperature 97.8 F 06/23/20 13:23 Pulse Rate 65 06/23/20 13:23 Respiratory Rate 12 06/23/20 13:23 Blood Pressure 174/84 H 06/23/20 13:23 Pulse Oximetry 97 06/23/20 13:23 GENERAL: Well-appearing, well-nourished and in no acute distress. HEENT: Head atraumatic,EOMI, pupils reactive, face symmetric, moist mucous membrane CARDIOVASCULAR: Regular rate and rhythm without murmurs, rubs or gallops. RESPIRATORY: Breath sounds equal bilaterally, no wheezes rales or rhonchi. ABDOMEN: Soft, nontender. Normoactive bowel sounds all 4 quadrants. No guarding or rebound. EXTREMITIES: Normal range of motion, no clubbing or edema. Neurovascularly intact NEUROLOGICAL: Alert and oriented x2. Expressive aphasia Cranial nerves II through XII grossly intact. Good tqhnxa-mg-dzqj, good malx-va-hfdm, strength equal bilaterally, no dysarthria or aphasia, sensation in tact to soft touch bilaterally, no visual changes, no facial droop SKIN: Warm, dry, no laceration, no petechiae, no rashes or lesions. Scores ABCD2 Citation: Lancet. 2006Nov 09;369(9558):283-92. Validation and refinement of scores to predict very early stroke risk after transient ischaemic attack. Kash SC1, Whitley PM, Freddie MN, Kamaljit MF, Mo JS, Isaías AL, Jabari S. Course Orders Ordered: ED Orders 06/23/20 13:37 CT head/brain wo con Stat EKG-12 Lead Stat 06/23/20 13:41 Complete Blood Count AUTO DIFF Stat Comprehensive Metabolic Panel Stat Troponin & CK Cardiac Panel Stat 06/23/20 14:45 Consult to Physical Therapy Evaluate & Treat 06/23/20 15:04 CT angio head and neck Stat 06/23/20 15:28 Consult to REFERRAL NURSE - Operations Systems Specialist Stat 06/23/20 15:45 Urinalysis and Microscopic Stat Urine Culture Stat Sodium Chloride (Normal Saline 0.9%) 1,000 mls @ 150 mls/hr IV CONT VALERIO Last Admin: 06/23/20 13:56 Dose: 150 mls/hr Documented by: MUKUND Discontinued Medications Losartan Potassium (Cozaar) 25 mg PO NOW ONE Stop: 06/23/20 18:46 Last Admin: 06/23/20 18:51 Dose: 25 mg Documented by: MUKUND Consultations Consultation #1: Dr. Lee, neurology at [facility] has reviewed patient's imaging. Carotid stenosis does not appear to be causing the subacute stroke noted. He also does not think that it is causing his ambulation symptoms therefore not emergent for patient to be transferred. He does request that patient be started on a statin and request that vascular surgery be consulted. He was able to pull up old records patient does have a history of atrial fibrillation otherwise on Eliquis carotid stenosis a year ago with 70% at that time.. Time: 16:18 Consultation #2: Vascular Dr. Lopez, the [facility] physician is has been updated patient's symptoms and test results if Neurology does not think symptoms are being caused by the carotid artery no need for emergent transfer. However does request the patient be started on aspirin despite already being on Eliquis recommend she take both along with atorvastatin. Time: 19:01 Consultation #3: Dr. Shine Rubin doctor updated patient's symptoms test results. Will help facilitate follow-up as needed. Time: 19:05 Vital Signs Vital signs: Vital Signs - 8 hr 06/23/20 13:23 06/23/20 13:25 06/23/20 13:30 Temperature 97.8 F Pulse Rate 65 62 62 Respiratory Rate 12 10 L 10 L Blood Pressure 174/84 H 164/75 H Pulse Oximetry 97 98 99 06/23/20 13:51 06/23/20 14:00 06/23/20 14:22 Temperature Pulse Rate 58 L 58 L 59 L Respiratory Rate 21 12 17 Blood Pressure 174/76 H 149/67 H Pulse Oximetry 97 97 96 06/23/20 14:26 06/23/20 14:30 06/23/20 15:00 Temperature Pulse Rate 59 L 62 Respiratory Rate 13 17 Blood Pressure 169/83 H 173/77 H 186/83 H Pulse Oximetry 97 98 06/23/20 15:30 06/23/20 16:00 06/23/20 16:03 Temperature Pulse Rate 72 63 63 Respiratory Rate 9 L 15 18 Blood Pressure 200/88 H 169/70 H Pulse Oximetry 98 97 97 06/23/20 16:05 06/23/20 16:21 06/23/20 17:48 Temperature Pulse Rate 79 68 Respiratory Rate 23 Blood Pressure 187/86 H 192/88 H Pulse Oximetry 96 06/23/20 18:00 06/23/20 18:30 06/23/20 18:31 Temperature Pulse Rate 71 73 71 Respiratory Rate 12 Blood Pressure 194/93 H 165/78 H Pulse Oximetry 97 97 98 06/23/20 18:51 06/23/20 19:00 06/23/20 19:30 Temperature Pulse Rate 69 63 71 Respiratory Rate 15 13 Blood Pressure 165/78 H 180/81 H 208/87 H Pulse Oximetry 96 98 MDM - Neuro Symptoms/Deficit Lab Data Attestation: I reviewed the patient's lab results. Result diagrams: 06/23/20 13:41 06/23/20 13:41 Labs: Lab Results 06/23/20 06/23/20 06/23/20 Range/Units 13:41 13:41 15:45 WBC 8.3 (4.5-11.0) X10^3/uL RBC 4.82 (4.5-5.9) X10^6/uL Hgb 14.0 (13.5-17.5) g/dL Hct 42.0 (41-53) % MCV 87.2 (80-100) fL MCH 29.0 (26-34) PG MCHC 33.2 (30-36) % RDW 16.4 H (11.6-14.8) % Plt Count 267 (150-400) X10^3/uL Neut % (Auto) 57.9 (50-75) % Lymph % (Auto) 23.2 L (25-40) % Luce % (Auto) 9.7 (3-14) % Eos % (Auto) 8.1 H (2-4) % Baso % (Auto) 1.1 (0-2) % Neut # (Auto) 4800 (5905-6819) /uL Lymph # (Auto) 1900 (0022-4186) /uL Luce # (Auto) 800 (0-900) /uL Eos # (Auto) 700 H (0-450) /uL Baso # (Auto) 100 (0-100) /uL Sodium 137 (137-145) mmol/L Potassium 4.5 (3.4-5.1) mmol/L Chloride 103 (98-107) mmol/L Carbon Dioxide 29 (22-32) mmol/L BUN 21 H (9-20) mg/dL Creatinine 1.71 H (0.66-1.25) mg/dL Estimated GFR 38.8 L (>60) mL/min BUN/Creatinine Ratio 12.3 (6-22) Glucose 90 (80-110) mg/dL Calcium 8.8 (8.4-10.2) mg/dL Total Bilirubin 0.5 (0.2-1.3) mg/dL AST 45 (17-59) IU/L ALT 31 (<50) IU/L Alkaline Phosphatase 74 (38-126) U/L Total Creatine Kinase 102 (55-170) U/L CK-MB (CK-2) 1.71 (<2.37) ng/mL CK-MB (CK-2) Rel Index 1.7 (1.5-5.0) % Troponin I 0.031 (0.01-0.034) ng/mL Total Protein 7.8 (6.3-8.2) g/dL Albumin 4.0 (3.5-5.0) g/dL Globulin 3.8 (1.7-4.1) g/dL Albumin/Globulin Ratio 1.1 (1.0-2.8) Urine Color Yellow Urine Appearance Clear Urine pH 7.0 (4.5-8.0) Ur Specific Joy 1.010 (1.000-1.035) Urine Protein Negative (Negative) Urine Glucose (UA) Negative (Negative) g/dL Urine Ketones Negative (NEGATIVE) Urine Occult Blood Negative (Negative) Urine Nitrate Negative (Negative) Urine Bilirubin Negative (NEGATIVE) Urine Urobilinogen 0.2 (0.2) E.U./dL Ur Leukocyte Esterase Trace H (NEGATIVE) Urine RBC 0-1/hpf (0-5/HPF) Urine WBC 1-5/hpf (0-5/HPF) Urine Bacteria None seen (None) Ur Culture Indicated? Specimen cultured Point of Care Testing Glucose POC [address] scan - head: Radiologist's Impression: PROCEDURE: CT HEAD/BRAIN WO CON INDICATIONS: inabiility to walk TECHNIQUE: Noncontrast 4.5 mm thick angled axial sections acquired from the foramen magnum to the vertex, with coronal and sagittal reformats. For radiation dose reduction, the following was used: automated exposure control, adjustment of mA and/or kV according to patient size. COMPARISON: [facility], MRI HEAD W/O CONTRAST, 10/16/2004, 11:39. FINDINGS: Image quality: Excellent. CSF spaces: Basal cisterns are patent. No extra-axial fluid collections. There is mild cerebral volume loss, with resultant ventricular and sulcal prominence. Brain: No intracranial hemorrhage, mass, or mass effect. There is a small region of encephalomalacia involving the left frontal lobe and a larger region of encephalomalacia involving the left posterior parietal, posterior temporal, and occipital lobes. There is also a small region of encephalomalacia in the right frontal lobe. There is effacement of the morales-white matter junction in the right occipital lobe with associated cortical and subcortical hypoattenuation. The findings are compatible with sequelae of an infarct of indeterminate acuity and possibly subacute. 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 There are subcortical, periventricular and deep white matter hypodensities consistent with mild chronic small vessel ischemic changes. There is intracranial internal carotid artery atherosclerosis. Skull and face: Calvarium and visualized facial bones appear intact, without suspicious lesions. Sinuses: Visualized sinuses and mastoids are clear. IMPRESSION: 1. Small region of cortical and subcortical hypoattenuation with effacement of the morales-white matter junction in the right occipital lobe. The findings are compatible with sequelae of a small infarct of indeterminate acuity, including a possible subacute infarct. Recommend correlation with clinical history and further evaluation with MRI if clinically indicated. 2. Bilateral areas of encephalomalacia demonstrated as described consistent with sequelae of chronic infarcts. Given the multifocal distribution, the findings suggest embolic disease. 3. No acute intracranial hemorrhage. Dictated by: Jorge Alberto Lopez M.D. on 06/23/2020 at 13:53 Approved by: Jorge Alberto Lopez M.D. on 06/23/2020 at 13:59 CTA - brain/neck: Radiologist's Impression: PROCEDURE: CT ANGIO HEAD AND NECK INDICATIONS: subacute stroke, hx of stroke TECHNIQUE: Pre-contrast 4.5 mm thick sections acquired from the foramen magnum to the vertex. After the administration of intravenous contrast, 1 mm thick sections acquired from the aortic arch through the [place] of [place]. Post-contrast 4.5 mm thick sections then re-acquired from the foramen magnum to the vertex. 3-dimensional mbnaimz-evjbaxdzh-refshmhwry (MIP) and/or volume rendering reformats were acquired of the central intracranial vasculature and neck separately. COMPARISON: [facility], CT, CT HEAD/BRAIN WO CON, 06/23/2020, 13:40. FINDINGS: Image quality: Excellent. BRAIN: CSF spaces: Ventricles are normal in size and shape. Basal cisterns are patent. No extra-axial fluid collections. Brain: No midline shift. No intracranial bleeds or masses. Chronic left frontal, left parietal left occipital infarcts are stable compared to the CT scan obtained June 23, 2020 at 1:40 p.m.. Small hypodensity in the right occipital lobe concerning for subacute infarct is stable. Small, chronic lacunar infarcts involving the cerebellar hemispheres are stable. Skull and face: Calvarium and facial bones appear intact, without suspicious lesions. Orbits appear normal. Sinuses: Sinuses and mastoids are clear. HEAD CT ANGIOGRAPHY: Anterior circulation: Intracranial internal carotid arteries are normal in flow. Atherosclerotic calcifications noted in the cavernous segments of the internal carotid arteries bilaterally which causes mild narrowing of the vessels. The flow within the paired anterior cerebral arteries is normal and symmetric. The flow within the middle cerebral arteries is normal and symmetric. The anterior communicating artery is seen. No aneurysms are seen. Posterior circulation: Visualized portions of the vertebral arteries demonstrate normal caliber, and join to form a normal appearing basilar artery. Flow within the posterior cerebral arteries is normal and symmetric. 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 No aneurysms are seen. Dural sinuses demonstrate normal postcontrast enhancement. NECK CT ANGIOGRAPHY: Carotid system: The great vessels demonstrate a conventional anatomy as they arise from the aortic arch. The origins of the common carotid arteries appear patent. The common carotid arteries demonstrate normal caliber and courses. The origin of the left internal carotid artery is fully patent. Atherosclerotic calcification noted in mid cervical segment of the left internal carotid artery which causes less than 50% stenosis of the vessel. Atherosclerotic plaque is noted in the origin and proximal right internal carotid artery which causes high-grade, greater than 90% stenosis of the vessel. Left internal carotid artery pharyngeal loops noted. Left internal carotid artery false for medial course project into the left retropharyngeal space. Posterior circulation: The origins of the vertebral arteries both appear widely patent. The more superior extracranial portions of both vertebral arteries also demonstrate normal courses and calibers. They join to form a normal appearing basilar artery. Soft tissues: Visualized neck soft tissues demonstrate no suspicious abnormalities. Emphysematous changes noted in the lungs bilaterally. Bones: No suspicious bony lesions. Spine degenerative disc disease and facet arthropathy. Visualized cervical spine appears normally aligned. IMPRESSION: 1. Possible small subacute right occipital infarct unchanged compared to earlier CT scan. 2. Chronic left frontal, left parietal, left occipital infarcts and bilateral cerebellar lacunar infarcts are stable. 3. Leveled large vessel occlusion, vascular dissection or aneurysm. 4. High-grade, greater than 90% stenosis of the proximal right internal carotid artery. Any quantitative measurements of stenosis were performed using NASCET criteria. Dictated by: Teetee Tristan MD, PhD on 06/23/2020 at 15:40 Approved by: Teetee Tristan MD, PhD on 06/23/2020 at 15:52 ECG Data Attestation: I personally reviewed and interpreted this ECG as follows: Prior ECG tracings: available for review Interpretation: Normal sinus rhythm rate 61 peer interval 207 QTC 434 QRS 93 no ischemic changes MDM Narrative Medical decision making narrative: Some patient noncontrast head CT does show a subacute stroke possibility. MRI initially ordered however the patient's and patient both state that he is not allowed to have MRIs he has stents placed in fact he did not have an MRI a year ago when he had his stroke. CTA ordered. CT a does confirm a subacute stroke and 90% carotid blockage is found. After multiple conversations with specialists ambulation issues not likely related to his carotid stenosis. Patient is evaluated by physical therapy in the emergency department he does walk better with a walker. Social work also evaluated patient and is happy to help set up home health if needed. Is recommended by all specialists and myself that patient take a statin. In the past patient has refused stating that he has pre diabetic. Patient is agreeable to try it now I have written him a prescription. I have discussed at length with both patient and that his symptoms return or worsen is imperative that they return emergency department immediately in eating call 911. At this time both patient and would prefer to go home. Vascular surgery will call them to schedule follow-up appointment. I discussed all findings with the patient and , Education has been performed regarding treatment plan, diagnosis, warning signs and symptoms and all concerns have been addressed. Verbally agree with and understood all of the above. Critical Care Time Critical Care Time Critical Care Time: Yes Total Critical Care Time: 30 Attestation: The high probability of a clinically significant, sudden or life threatening deterioration of the neurovascular system(s) required my full and direct attention, intervention and personal management. The aggregate critical care time was 30 minutes. This time is in addition to time spent performing reported procedures but includes the following: [x] Data Review and interpretation [x] Patient assessment and monitoring of vital signs [x] Documentation [x] Medication orders and management Discharge Plan Departure Patient Disposition: Home Clinical Impression: Carotid artery stenosis Qualifiers: Laterality: right Qualified Code(s): I65.21 - Occlusion and stenosis of right carotid artery CVA (cerebral vascular accident) Qualifiers: Laterality of affected vessel: right Instructions: DI for Stroke-Ischemic Activity Restrictions/Additional Instructions: *You have been diagnosed with a stroke and right carotid stenosis *What to do: You will need to follow-up with vascular surgery I spoke with a Dr. Reji mak who is a [facility] vascular surgeon in [place]. His office will contact you to schedule an appointment. It is strongly recommended that you take a statin such as atorvastatin 40 mg once daily -please discuss with Neurology and vascular surgery adding aspirin 81 mg to your Eliquis it is recommended by vascular surgery *Continue to take medications as directed Aspirin 81 mg daily in addition to your Eliquis Atorvastatin 40 mg once a day--> [facility] [place] [facility] *Follow up with your primary care provider in 2-3 days Follow-up with vascular surgery *Return to ER if you should have any worsening symptoms including walking, facial droop, arm weakness, leg weakness or any new, worsening or concerning symptoms Prescriptions: New atorvastatin 40 mg tablet 40 mg PO BEDTIME Qty: 30 RF: 0 No Action losartan [Cozaar] 50 MG tablet 75 mg PO BID Qty: 0 RF: 0 multivitamin Tablet 1 tab PO DAILY Qty: 0 RF: 0 metoprolol tartrate 25 mg tablet 25 mg PO BID RF: 0 Eliquis 5 mg tablet 5 mg PO BID RF: 0 tamsulosin 0.4 mg capsule 0.4 mg PO BID RF: 0 amlodipine 5 mg tablet 5 mg PO DAILY RF: 0 Nature-Throid 32.5 mg tablet 65 mg PO DAILY RF: 0 Referrals: Norma Doherty PA-C [Primary Care Provider] -
[2020-06-23 14:19] LABS: Troponin I 0.031 ng/mL (0.01-0.034)
[2020-06-23 14:24] LABS: CKMB % Relative Index 1.7 % (1.5-5.0); Creatine Kinase MB 1.71 ng/mL (<2.37)
--- NOTE | 2020-06-23 15:04 | DI.CT.S_ITS ---
PROCEDURE: CT ANGIO HEAD AND NECK INDICATIONS: subacute stroke, hx of stroke TECHNIQUE: Pre-contrast 4.5 mm thick sections acquired from the foramen magnum to the vertex. After the administration of intravenous contrast, 1 mm thick sections acquired from the aortic arch through the [place] of [place]. Post-contrast 4.5 mm thick sections then re-acquired from the foramen magnum to the vertex. 3-dimensional wytdqdj-bzsbgcyjv-ruokypbrkp (MIP) and/or volume rendering reformats were acquired of the central intracranial vasculature and neck separately. COMPARISON: [facility], CT, CT HEAD/BRAIN WO CON, 06/23/2020, 13:40. FINDINGS: Image quality: Excellent. BRAIN: CSF spaces: Ventricles are normal in size and shape. Basal cisterns are patent. No extra-axial fluid collections. Brain: No midline shift. No intracranial bleeds or masses. Chronic left frontal, left parietal left occipital infarcts are stable compared to the CT scan obtained June 23, 2020 at 1:40 p.m.. Small hypodensity in the right occipital lobe concerning for subacute infarct is stable. Small, chronic lacunar infarcts involving the cerebellar hemispheres are stable. Skull and face: Calvarium and facial bones appear intact, without suspicious lesions. Orbits appear normal. Sinuses: Sinuses and mastoids are clear. HEAD CT ANGIOGRAPHY: Anterior circulation: Intracranial internal carotid arteries are normal in flow. Atherosclerotic calcifications noted in the cavernous segments of the internal carotid arteries bilaterally which causes mild narrowing of the vessels. The flow within the paired anterior cerebral arteries is normal and symmetric. The flow within the middle cerebral arteries is normal and symmetric. The anterior communicating artery is seen. No aneurysms are seen. Posterior circulation: Visualized portions of the vertebral arteries demonstrate normal caliber, and join to form a normal appearing basilar artery. Flow within the posterior cerebral arteries is normal and symmetric. 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 No aneurysms are seen. Dural sinuses demonstrate normal postcontrast enhancement. NECK CT ANGIOGRAPHY: Carotid system: The great vessels demonstrate a conventional anatomy as they arise from the aortic arch. The origins of the common carotid arteries appear patent. The common carotid arteries demonstrate normal caliber and courses. The origin of the left internal carotid artery is fully patent. Atherosclerotic calcification noted in mid cervical segment of the left internal carotid artery which causes less than 50% stenosis of the vessel. Atherosclerotic plaque is noted in the origin and proximal right internal carotid artery which causes high-grade, greater than 90% stenosis of the vessel. Left internal carotid artery pharyngeal loops noted. Left internal carotid artery false for medial course project into the left retropharyngeal space. Posterior circulation: The origins of the vertebral arteries both appear widely patent. The more superior extracranial portions of both vertebral arteries also demonstrate normal courses and calibers. They join to form a normal appearing basilar artery. Soft tissues: Visualized neck soft tissues demonstrate no suspicious abnormalities. Emphysematous changes noted in the lungs bilaterally. Bones: No suspicious bony lesions. Spine degenerative disc disease and facet arthropathy. Visualized cervical spine appears normally aligned. IMPRESSION: 1. Possible small subacute right occipital infarct unchanged compared to earlier CT scan. 2. Chronic left frontal, left parietal, left occipital infarcts and bilateral cerebellar lacunar infarcts are stable. 3. Leveled large vessel occlusion, vascular dissection or aneurysm. 4. High-grade, greater than 90% stenosis of the proximal right internal carotid artery. Any quantitative measurements of stenosis were performed using NASCET criteria. Dictated by: Teetee Tristan MD, PhD on 06/23/2020 at 15:40 Approved by: Teetee Tristan MD, PhD on 06/23/2020 at 15:52
[2020-06-23 15:52] LABS: Bacteria Urine None Seen
[2020-06-23 15:54] LABS: Appearance Urine UA CLEAR; Bilirubin Urine UA NEGATIVE (NEGATIVE); Color Urine UA YELLOW; Glucose Urine UA NEGATIVE (Negative); Ketones Urine UA NEGATIVE (NEGATIVE); Leukocyte Esterase Urine UA TRACE (NEGATIVE); Nitrite Urine UA NEGATIVE (Negative); Occult Blood Urine UA NEGATIVE (Negative); Protein Urine UA NEGATIVE (Negative); Urobilinogen Urine UA 0.2 E.U./dL (0.2)
[2020-06-23 16:04] LABS: Culture Indicated Urine Specimen Cultured; RBC Urine 0-1/HPF (0-5/HPF); WBC Urine 1-5/HPF (0-5/HPF)
--- NOTE | 2020-06-23 16:45 | CM.SWNOTE ---
TOE CLOSING MACHINE TENDER note TOE CLOSING MACHINE TENDER consult requested for patient to offer support for coordinating in home resources. TOE CLOSING MACHINE TENDER staffed with PT prior to meeting with patient, and PT informs TOE CLOSING MACHINE TENDER that patient passed PT exam with use of walker, that family has assistive devices at home, and outpatient PT would be recommended. TOE CLOSING MACHINE TENDER enters room and introduces self and role. While in room, Dr. Hensley enters room and discusses an imaging result that is being reviewed by another hospital. Patient and indicate that they feel comfortable setting up outpatient PT, and did not know if they had other needs for TOE CLOSING MACHINE TENDER at this time. TOE CLOSING MACHINE TENDER informed patient that they could request support from TOE CLOSING MACHINE TENDER at any point during their stay and exits room. BHUMIKA Salmon
--- NOTE | 2020-06-23 17:17 | PT.IIE ---
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 He participated in acute rehab following that incident but continues to demonstrate these communication deficits. Pt's states his current presentation is consistent with baseline. Mobility and Gait Pt participated in an outpatient PT plan of care following his CVA in 2018. At discharge, his FGA score was 25/30. He has been independent with all mobilty since that time until two nights ago when he began staggering, was dizzy, and felt disoriented spatially. He endorses left hip pain which has limited his walking somewhat. Activities of Daily Living and IADL's Pt is independent with all ADL 's at baseline Prior Functional Level (Other details) Pt is active, doing daily yoga and using the 7-minute workout cecelia for interval training. Social History Household Members spouse Living Arrangements House Number of Floors (Floors) One Floor Number of Stairs To Enter/Railing? 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 He lives with his , Kamryn, who is available to assist the pt . M2 PT-IP Current Condition Start: 06/23/20 15:14 Freq: Status: Active Protocol: Document 06/23/20 16:39 AW (Rec: 06/23/20 17:17 AW [email or web address]) Physical Therapy Current Condition Current Condition Evaluation Date 06/23/20 Treatment Diagnosis subacute R occipital CVA, chronic L MCA CVA, ataxia, difficulty walking M3 PT-IP Subjective Start: 06/23/20 15:14 Freq: Status: Active Protocol: Document 06/23/20 16:39 AW (Rec: 06/23/20 17:17 AW [email or web address]) Subjective Physical Therapy Visit Type Type Initial Evaluation Visit Start Time 15:43 Visit Stop Time 16:29 Total Visit Minutes 46 Notes Pt's , Kamryn, is present throughout, and contributes much to pt history. Physical Therapy Visit Comments Patient Comments Pt is willing to participate with PT Patient Goals Pt hopes to go home but wants to improve his gait pattern and safety. Therapy Pain Assessment Pain When Pain Assessed During Mobility Pain Present Pain Present Denied Pain M4 PT-IP Mobility and Gait Start: 06/23/20 15:14 Freq: Status: Active Protocol: Document 06/23/20 16:39 AW (Rec: 06/23/20 17:17 AW [email or web address]) PT-Bed Mobility Assessment Supine to Sit Supine to Sit Independent Sit to Supine Sit to Supine Independent Scooting Scooting to Edge of Bed Independent Scooting Up and Down in Bed Independent PT-Transfer Assessment Sit to and From Stand Sit to and from Stand Contact Guard Assistance,1 Person Assistance Equipment Transfer Assistive Device Gait Belt Orthotic/Prosthetic Devices or Brace: No Transfers Transfer Destination Bed Transfer Technique pt ambulated without and with FWW Transfer Ability Level of Assist Contact Guard Assistance,1 Person Assistance Comments Mobility Comments Pt was lying on the [facility] with his at bedside as PT arrived. He agreed to mobililze and completed supine to sit IND. Sitting BP was 169/70. He stood from the [facility] with CGA due to initial unsteadiness and moved away from the bed for static balance assessment. He then ambulated ~120 feet around the ED nurse station with CGA due to unsteady and ataxic gait, also requiring assist with IV line management due to impulsivity. Pt returned to the room and transferred back to the [facility] SBA. He agreed to ambulate further with FWW. He walked around the nurse station again with improved gait mechanics, improved confidence, and less obviously impaired coordination. Gait with FWW required only SBA. Pt was positioned on the bed with call light in reach. BP following activity was 187/86. Gait Assessment Gait Gait Assistance Required: Standby Assistance,Contact Guard Assist Distance (Feet) 120 Assistive Devices Assistive Device None,Gait Belt,Front Wheeled Walker Gait Deviations General Gait Pattern Ataxic,Decreased Stride Length ,Decreased Feet Clearance, Flexed Trunk,Wide Based Gait Factors Limiting Gait Function Factors Limiting Gait Function Abnormal Tonal Influences, Decreased Sensation,Difficulty Following Directions, Incoordination,Poor Balance, Poor Safety Awareness Comments Gait Comments See mobility comments for details. Pt demonstrated inconsistent step length and foot strike pattern, requiring CGA when not using FWW. With FWW, gait quality improved. Pt and his reluctantly agreed that using a FWW at home would increase his safety along with his independence with mobility. Stair Climbing Assessment Comments Stair Climbing Comments Not assessed. No stairs at home. PT-Balance Assessment Sitting Balance and Reactions Static Sitting Balance Ability Normal Dynamic Sitting Balance Ability Normal Standing Balance and Reactions Static Standing Balance Ability Fair Dynamic Standing Balance Ability Fair Device Used with and without FWW Balance Tests Romberg WNL EO and EC Tandem Standing able to assume position only with assist Functional Assessments Other Functional Tests Performed Unable to complete 4-item DGI due to communication issues. Pt had difficulty understanding simple instructions in busy ED environment with distraction likely contibuting to poor performance. M5 PT-IP Objective Assessments Start: 06/23/20 15:14 Freq: Status: Active Protocol: Document 06/23/20 16:39 AW (Rec: 06/23/20 17:17 AW [email or web address]) Orientation Orientation/Cognition Level of Alertness Alert Orientation Name,Day of Week,Place, Situation Language Function Ability Expressive Aphasia,Receptive Aphasia Safety Awareness Decreased Safety Awareness Memory Description Short Term Impaired Comments Pt was able to recall 2/3 words without prompt and the 3rd word with a category clue. Gross Range of Motion Upper Extremity ROM Assessment Right Impaired Impairments restricted OH movement with RUE Lower Extremity ROM Assessment Within Functional Limits Strength Upper Extremity Strength Assessment Within Functional Limits Lower Extremity Strength Assessment Within Functional Limits Hip 4+/5 Knee 5/5 Ankle 4+/5 Comments Strength Comments No apparent unilateral deficit Coordination Assessment Gross Coordination Gross Coordination Impaired Assessment Finger to Nose Test Moderate Impairment Pronation/Supination Test Minimal Impairment Heel on Villafuerte Test Minimal Impairment Coordination Comments Missed targets on finger to nose testing >2 cm. Rapid pronation/supination challenged more on RUE than left. Heel-villafuerte testing difficult to assess with pt possibly not understanding instruction Sensation Assessment Sensation Gross Sensation Right LE Impaired,Left LE Impaired Light Touch Impaired Proprioception (Position) Impaired Comments Sensation Comments Dull light touch sensation in bilateral feet. No unilateral deficits found. Pt had difficulty understanding instructions for proprioception testing but has apparent deficits at bilateral ankles and hips. Muscle Tone Comments Muscle Tone Comments Inconclusive testing for clonus at bilateral ankles. Pt had difficulty understanding instructions, but this PT appreciates some increased tone in B ankles. M6 PT-IP Treatment Start: 06/23/20 15:14 Freq: Status: Active Protocol: Document 06/23/20 16:39 AW (Rec: 06/23/20 17:17 AW [email or web address]) Physical Therapy Treatment Education Education Provided Safety Other Treatments Other Treatment Performed Provided education on role of PT and discussed exam findings with pt and his . M7 PT-IP Assessment and Plan Start: 06/23/20 15:14 Freq: Status: Active Protocol: Document 06/23/20 16:39 AW (Rec: 06/23/20 17:17 AW [email or web address]) PT Summary Assessment and Plan Potential Rehabilitation Potential Good Status of Condition at Evaluation Evolving Summary Impairments Balance,Coordination,Sensation ,Cognition,Gait Assessment Summary Alex is a 79 yo man seen for PT evaluation at the request on ED provider. He has history of L MCA CVA in 2019 and now presents with balance and gait disturbance lasting two days. CT of the head on this admit finds: Small region of cortical and subcortical hypoattenuation with effacement of the morales-white matter junction in the right occipital lobe. The findings are compatible with sequelae of a small infarct of indeterminate acuity, including a possible subacute infarct. Pt is independent in all regards at baseline. At discharge from outpatient PT in 2019, pt scored 25/30 on Functional Gait Assessment and was actively participating in yoga practice and interval training. On evaluation, pt presents with ataxic gait, impaired coordination, abnormal visual tracking, and abnormal saccades. Sensation in bilateral feet is dull and proprioception is impaired throughout B LE and B UE with left more affected than right. Pt is able to ambulate CGA without a walker and SBA with FWW. Gait mechanics and coordination are improved with FWW and this PT recommends pt use FWW until evaluation by outpatient PT. Pt is safe for discharge home with spouse assist, use of FWW, and referral to outpatient PT to address gait and balance disturbance. Frequency of Treatment Frequency Of Treatment Discharge Recommendations To Nursing Amount of Assist Needed Standby Assistance Discharge Recommendations PT Discharge Recommendations Home with Assistance, Outpatient PT Transportation Needs at Discharge Private Vehicle
[2020-06-23] MEDS: LOSARTAN 25 MG TABLET PO (18:51)
== END 2020-06-23 20:06 | disposition home or self-care (01) ==
PROVIDERS: Emergency Provider Emergency Medicine; PCP Physician Assistant
DX: I65.21 Occlusion and stenosis of right carotid artery (principal); I63.9 Cerebral infarction, unspecified; R42 Dizziness and giddiness; R26.81 Unsteadiness on feet; Q65.6 Congenital unstable hip
CPT/HCPCS: 36415; 70450; 70496; 70498; 80053; 81001; 82550; 82553; 82962; 84484; 85025; 87086; 93005; 97116; 97162; 99285; 99291; Q9967

== ENCOUNTER 2021-04-15 17:52 | Emergency (ER) | payer OTHER, SELFPAY ==
[2021-04-15] VITALS (8 sets, daily range): BP systolic 149–169; BP diastolic 81–85; PULSE 65–76; RESP 16; TEMP 36.9; O2SAT 95–100
--- NOTE | 2021-04-15 18:38 | ED.MALEGU ---
HPI - Male Genitourinary General Chief complaint: Abdominal Pain Stated complaint: POSS KIDNEY STONE Time Seen by Provider: 04/15/21 18:01 Source: patient and family Mode of arrival: Wheelchair Limitations: other History of Present Illness HPI Narrative: 80-year-old male former smoker with history of coronary artery disease, hypertension, hyperlipidemia, prior coronary artery bypass graft with subsequent stroke and resultant aphasia presents with his in the chief complaint of a sudden onset left flank pain that has radiated around his side over the course of the past 24 hours. It came on sudden in onset and seems to at times be provoked by motion and improved by rest while at others it comes with a mind of its own. He denies any change in bowel or bladder habits. He has had no fever or chills and denies blood in his urine. He does have a history of kidney stones. Related Data Home Medications Medication Instructions Recorded Confirmed losartan 50 mg tablet (Cozaar) 75 mg PO BID #0 04/21/13 12/08/19 multivitamin 1 tab PO DAILY #0 04/24/13 12/08/19 apixaban 5 mg tablet (Eliquis) 5 mg PO BID 11/18/19 12/08/19 metoprolol tartrate 25 mg tablet 25 mg PO BID 11/18/19 12/08/19 tamsulosin 0.4 mg capsule 0.4 mg PO BID 11/18/19 12/08/19 amlodipine 5 mg tablet 5 mg PO DAILY 12/08/19 12/08/19 thyroid (pork) 32.5 mg tablet 65 mg PO DAILY 12/08/19 (Nature-Throid) Previous Rx's Medication Instructions Recorded atorvastatin 40 mg tablet 40 mg PO BEDTIME #30 tab 06/23/20 cyclobenzaprine 10 mg tablet 10 mg PO TID PRN #14 tab 04/15/21 ketorolac 10 mg tablet 10 mg PO Q6H PRN #14 tab 04/15/21 Allergies Allergy/AdvReac Type Severity Reaction Status Date / Time codeine [CODEINE] Allergy Unknown Verified 06/23/20 13:25 levofloxacin [From LEVAQUIN] Allergy Unknown Verified 06/23/20 13:25 Review of Systems Review of Systems Narrative: GENERAL: Denies chills, fatigue, malaise, fever, sweats. HEENT: Denies sinus pain, ear pain, sore throat, difficulty swallowing, dizziness. RESPIRATORY: Denies dyspnea, cough, wheezing, hemoptysis, sputum. CARDIOVASCULAR: Denies chest pain, palpitations, orthopnea, edema, GASTROINTESTINAL: Denies nausea, vomiting, abdominal pain, diarrhea, constipation, melena. : See HPI. MUSCULOSKELETAL: denies weakness, joint pain, or bony pain SKIN: Denies rash, skin lesions, or other NEUROLOGIC: Denies weakness, headache, numbness, change in speech, confusion, seizures, incoordination. PSYCHIATRIC: No concerning psychosocial issues. 12 point review of systems is negative except for those stated above Patient History Medical History (Updated 04/15/21 @ 21:02 by Sami Shelton DO) BPH (benign prostatic hyperplasia) CVA (cerebral vascular accident) Hypertension Surgical History Hx of CABG Social History household members: spouse Smoking Status: Former smoker Smoking Status: Former smoker alcohol intake frequency: holidays/special occasions only Substance Use Type: does not use Exam Narrative Exam Narrative: GENERAL: [80] year old patient appears stated age. Well-developed patient, in mild distress. HEAD: Atraumatic. Normocephalic. EYES: Pupils equal round and reactive. Extraocular motions intact. No scleral icterus. No injection or drainage. ENT: Nose without bleeding, purulent drainage. Throat without erythema, tonsillar hypertrophy or exudate. Airway patent. NECK: Trachea midline. Non tender CARDIOVASCULAR: Regular rate and rhythm without murmurs, gallops, or rubs. RESPIRATORY: Clear to auscultation. Breath sounds equal bilaterally. No wheezes, rales, or rhonchi. GASTROINTESTINAL: Abdomen soft, non-tender, nondistended. EXTREMITIES: No edema or joint tenderness. BACK: Nontender without deformity or crepitance. No flank tenderness. NEURO: AOx3. SKIN: No rash or erythema of visible areas Initial Vital Signs Initial Vital Signs: Vital Signs Temperature 98.5 F 04/15/21 18:26 Pulse Rate 66 04/15/21 18:26 Respiratory Rate 16 04/15/21 18:26 Blood Pressure 149/83 H 04/15/21 18:26 Pulse Oximetry 96 04/15/21 18:26 Course Orders Ordered: Discontinued Medications Cyclobenzaprine HCl (Cyclobenzaprine 10 Mg Prepack) 1 bottle MISC SEEINSTR ONE Stop: 04/15/21 21:01 Last Admin: 04/15/21 21:12 Dose: 1 bottle Documented by: AINSLEY Sodium Chloride (Normal Saline 0.9%) 1,000 mls @ 1,000 mls/hr IV BOLUS ONE Stop: 04/15/21 19:37 Last Infusion: 04/15/21 20:53 Dose: 0 mls/hr Documented by: Admin: 04/15/21 19:26 Dose: 1,000 mls/hr Documented by: DIAZ Ketorolac Tromethamine (Ketorolac 30 Mg/Ml Vial) 15 mg IV NOW ONE Stop: 04/15/21 18:39 Last Admin: 04/15/21 19:26 Dose: 15 mg Documented by: DIAZ Vital Signs Vital signs: Vital Signs - 8 hr 04/15/21 18:26 Temperature 98.5 F Pulse Rate 66 Respiratory Rate 16 Blood Pressure 149/83 H Pulse Oximetry 96 MDM - Male Genitourinary Lab Data Result diagrams: 04/15/21 18:35 04/15/21 18:35 Labs: Lab Results 04/15/21 04/15/21 Range/Units 18:35 18:35 WBC 7.6 (4.5-11.0) X10^3/uL RBC 4.80 (4.5-5.9) X10^6/uL Hgb 14.6 (13.5-17.5) g/dL Hct 44.0 (41-53) % MCV 91.8 (80-100) fL MCH 30.5 (26-34) PG MCHC 33.2 (30-36) % RDW 14.0 (11.6-14.8) % Plt Count 258 (150-400) X10^3/uL Neut % (Auto) 62.4 (50-75) % Lymph % (Auto) 26.4 (25-40) % Duval % (Auto) 7.9 (3-14) % Eos % (Auto) 2.5 (2-4) % Baso % (Auto) 0.8 (0-2) % Neut # (Auto) 4700 (9336-8781) /uL Lymph # (Auto) 2000 (0990-4117) /uL Duval # (Auto) 600 (0-900) /uL Eos # (Auto) 200 (0-450) /uL Baso # (Auto) 100 (0-100) /uL Sodium 138 (137-145) mmol/L Potassium 4.4 (3.4-5.1) mmol/L Chloride 104 (98-107) mmol/L Carbon Dioxide 26 (22-32) mmol/L BUN 30 H (9-20) mg/dL Creatinine 1.58 H (0.66-1.25) mg/dL Estimated GFR 42.4 L (>60) mL/min BUN/Creatinine Ratio 19.0 (6-22) Glucose 82 (80-110) mg/dL Calcium 8.9 (8.4-10.2) mg/dL Urine Dip Bedside Urine Glucose Negative Bedside Urine Bilirubin - Negative Bedside Urine Ketone - Negative Urine Specific Heyworth 1.010 Bedside Urine Occult Blood - Negative Bedside Urine pH 6 Bedside Urine Protein - Negative Bedside Urine Urobilinogen - Negative Bedside Urine Nitrite - Negative Bedside Urine Leukocytes - Negative Esterase Imaging Data CT scan - abdomen/pelvis: Radiologist's Impression: [address] [id number] Scan ReportSigned Patient: Alex Fuentes [facility]#: [id number]: 1940Acct:[id number]/Sex: 80 / MDate of Service: 04/15/21Loc: EDAccession Number: [id number] Procedure: CT kidney ureter bladder (KUB) Ordering Provider: Sami Shelton D.O. PROCEDURE: CT KIDNEY URETER BLADDER (KUB) INDICATIONS: left flank pain, history of kidney stones TECHNIQUE: Axial sections were acquired from the lung bases to the pubic symphysis. Coronal and sagittal reformats were performed. For radiation dose reduction, the following was used: automated exposure control, adjustment of mA and/or kV according to patient size. COMPARISON:[facility], CT, CT KIDNEY URETER BLADDER (KUB), 08/22/2018, 9:18. [facility], CT, KIDNEY/ URETER/BLADDER, 01/30/2018, 9:52. FINDINGS: Image quality: Excellent. Lung bases: Unremarkable. Heart: No significant findings. URINARY: Right Kidney: No stones or hydronephrosis. Right Ureter: No hydroureter. Left Kidney: No stones or hydronephrosis. Note is made of several renal cortical cysts that measure water in density the largest of which is exophytic from the posterior cortex of the left kidney measuring up to 4.6 x 6.6 cm. There is no sign of hemorrhage into the cysts that are present on the left, or on the right. Left Ureter: No hydroureter. Bladder: Normal wall thickness. No stones. ABDOMEN: Liver: Unremarkable. Gallbladder: Appears normal, partially contracted. Biliary ducts: Unremarkable. Pancreas: Unremarkable. Spleen: Unremarkable. Adrenal Glands: Unremarkable. Stomach and Bowel: Stomach, small bowel loops, and colon are unremarkable. Peritoneum: No abnormal intraperitoneal fluid. No free air. Ventral Wall: No hernia. Abdominal Nodes: No enlarged retroperitoneal or mesenteric lymph nodes. Vessels: Aorta and inferior vena cava are normal in size. PELVIS: Pelvic Organs: Unremarkable. Pelvic Nodes: Unremarkable. Miscellaneous: No inguinal hernias are seen. Bones: Unremarkable. IMPRESSION: Scattered left renal cortical cyst but no hydronephrosis or nephrolithiasis found. The largest cyst on the left measures up to 6.6 cm, but shows no evidence of internal inflammation or hemorrhage, or mass effect impinging on adjacent structures. Source of asymmetric left flank pain is not found. Dictated by: Tu Valenzuela M.D. on 04/15/2021 at 19:07 Approved by: Tu Valenzuela M.D. on 04/15/2021 at 19:09 [facility] Narrative Medical decision making narrative: Multiple etiologies of back pain considered including; Epidural abscess, cauda equina, mass occupying lesion, and other considered Multiple etiologies for patient's symptoms considered including: [The above versus pyelonephritis versus musculoskeletal inflammation and spasm due to frequent workouts] Patient's symptoms improved over duration of stay with above-stated therapies. Findings and discharge diagnosis discussed with patient/family followed by verbalization of understanding Return precautions discussed with patient/family whom verbalize understanding. Discharge Plan Departure Patient Disposition: Home Clinical Impression: Acute flank pain Instructions: DI for Flank Pain Activity Restrictions/Additional Instructions: *You have been diagnosed with [left flank pain. No evidence of kidney stone or urine infection] *What to do: *Please continue to take your regular medications as directed. [ x] New medication prescriptions sent to your pharmacy: [[facility] ] [ ] New medication written as a paper prescription [ ] No new medications given *Please follow up with your primary care provider in 2-3 days, call for an appointment. Let them know you were seen in the Emergency Department and that we ask that you be seen in follow up. We will electronically transmit a record of today's note if your PCP is in our system *If you do not have a primary care provider please contact the [facility] Resource line at [phone]. They will ask some questions about your medical history and help get you set up with a doctor in the community. *Return to Emergency Department if you should have any new, worsening or concerning symptoms, such as [fever greater than 101 F, shaking chills, worsening pain, persistent vomiting or other bothersome symptoms] Prescriptions: New cyclobenzaprine 10 mg tablet 10 mg PO TID PRN (Reason: muscle spasm) Qty: 14 RF: 0 ketorolac 10 mg tablet 10 mg PO Q6H PRN (Reason: pain) Qty: 14 RF: 0 No Action losartan [Cozaar] 50 MG tablet 75 mg PO BID Qty: 0 RF: 0 multivitamin Tablet 1 tab PO DAILY Qty: 0 RF: 0 metoprolol tartrate 25 mg tablet 25 mg PO BID RF: 0 Eliquis 5 mg tablet 5 mg PO BID RF: 0 tamsulosin 0.4 mg capsule 0.4 mg PO BID RF: 0 amlodipine 5 mg tablet 5 mg PO DAILY RF: 0 Nature-Throid 32.5 mg tablet 65 mg PO DAILY RF: 0 atorvastatin 40 mg tablet 40 mg PO BEDTIME Qty: 30 RF: 0 Referrals: Norma Doherty PA-C [Primary Care Provider] -
[2021-04-15] MEDS: KETOROLAC 30 MG/ML VIAL 15 MG IV (19:26)
[2021-04-15] MEDS: SODIUM CHLORIDE 0.9% 1,000 ML 1000 ML IV (19:26)
[2021-04-15 19:27] LABS: Add Manual Diff / Slide Review NO; Basophils Absolute Auto 100 /uL (0-100); Basophils Percent Auto 0.8 % (0-2); Eosinophils Absolute Auto 200 /uL (0-450); Eosinophils Percent Auto 2.5 % (2-4); Hemoglobin 14.6 g/dL (13.5-17.5); Lymphocytes Absolute Auto 2000 /uL (1100-4500); Lymphocytes Percent Auto 26.4 % (25-40); Mean Corpuscular HGB Conc 33.2 % (30-36); Mean Corpuscular Hemoglobin 30.5 PG (26-34); Mean Corpuscular Volume 91.8 fL (80-100); Monocytes Absolute Auto 600 /uL (0-900); Monocytes Percent Auto 7.9 % (3-14); Neutrophils Absolute Auto 4700 /uL (1500-7000); Neutrophils Percent Auto 62.4 % (50-75); Platelet Count 258 X10^3/uL (150-400); White Blood Cell Count 7.6 X10^3/uL (4.5-11.0)
[2021-04-15 20:18] LABS: Blood Urea Nitrogen 30 mg/dL (9-20); Calcium 8.9 mg/dL (8.4-10.2); Carbon Dioxide 26 mmol/L (22-32); Chloride 104 mmol/L (98-107); Estimated Glomerular Filt Rate 42.4 mL/min (>60); Glucose 82 mg/dL (80-110); HEMOLYSIS 37 (0-50); Potassium 4.4 mmol/L (3.4-5.1); Sodium 138 mmol/L (137-145)
[2021-04-15] MEDS: CYCLOBENZAPRINE 10 MG PREPACK 1 BOTTLE MISC (21:12)
== END 2021-04-15 21:15 | disposition home or self-care (01) ==
PROVIDERS: Emergency Provider Emergency Medicine; PCP Physician Assistant
DX: R10.9 Unspecified abdominal pain (principal)
CPT/HCPCS: 36415; 74176; 80048; 81003; 85025; 96361; 96374; 99284; J1885

== ENCOUNTER → 2021-07-20 17:30 | Outpatient (CLI) | payer OTHER, SELFPAY ==
[2021-07-20 18:20] LABS: Alanine Aminotransferase 11 IU/L (<50); Albumin 4.5 g/dL (3.5-5.0); Albumin Globulin Ratio 1.3 (1.0-2.8); Alkaline Phosphatase 63 U/L (38-126); Aspartate Aminotransferase 34 IU/L (17-59); BUN Creatinine Ratio 12.2 (6-22); Bilirubin Total 0.4 mg/dL (0.2-1.3); Blood Urea Nitrogen 24 mg/dL (9-20); Calcium 8.9 mg/dL (8.4-10.2); Carbon Dioxide 29 mmol/L (22-32); Chloride 102 mmol/L (98-107); Estimated Glomerular Filt Rate 33.1 mL/min (>60); Globulin 3.5 g/dL (1.7-4.1); Glucose 91 mg/dL (80-110); HEMOLYSIS < 15 (0-50); Sodium 139 mmol/L (137-145)
== END ==
PROVIDERS: PCP Physician Assistant; Referring Provider Internal Medicine Cardiovascular Disease; Visit Provider Internal Medicine Cardiovascular Disease
DX: I10 Essential (primary) hypertension (principal)
CPT/HCPCS: 36415; 80053

== ENCOUNTER → 2021-10-25 12:47 | Outpatient (CLI) | payer OTHER, SELFPAY ==
[2021-10-25 13:21] LABS: Blood Urea Nitrogen 20 mg/dL (9-20); Calcium 8.9 mg/dL (8.4-10.2); Carbon Dioxide 27 mmol/L (22-32); Chloride 105 mmol/L (98-107); Estimated Glomerular Filt Rate 39.7 mL/min (>60); Glucose 77 mg/dL (80-110); HEMOLYSIS < 15 (0-50); Potassium 3.9 mmol/L (3.4-5.1); Sodium 140 mmol/L (137-145)
== END ==
PROVIDERS: PCP Physician Assistant; Referring Provider Physician Assistant; Visit Provider Physician Assistant
DX: N18.32 Chronic kidney disease, stage 3b (principal); I12.9 Hypertensive chronic kidney disease with stage 1 through stage 4 chronic kidney disease, or unspecified chronic kidney disease
CPT/HCPCS: 36415; 80048

== ENCOUNTER → 2022-08-21 13:52 | Outpatient (CLI) | payer OTHER, SELFPAY ==
[2022-08-21 17:12] LABS: BUN Creatinine Ratio 13.8 (6-22); Blood Urea Nitrogen 24 mg/dL (9-20); Calcium 8.4 mg/dL (8.4-10.2); Carbon Dioxide 26 mmol/L (22-32); Chloride 105 mmol/L (98-107); Estimated Glomerular Filt Rate 39 mL/min (>60); Glucose 76 mg/dL (80-110); HEMOLYSIS < 15 (0-50); Potassium 4.9 mmol/L (3.4-5.1); Sodium 141 mmol/L (137-145)
== END ==
PROVIDERS: PCP Physician Assistant; Referring Provider Physician Assistant; Visit Provider Physician Assistant
DX: I12.9 Hypertensive chronic kidney disease with stage 1 through stage 4 chronic kidney disease, or unspecified chronic kidney disease (principal); N18.32 Chronic kidney disease, stage 3b
CPT/HCPCS: 36415; 80048

== ENCOUNTER 2025-04-13 10:08 | Emergency (ER) | payer OTHER, SELFPAY ==
[2025-04-13] VITALS (14 sets, daily range): BP systolic 139–187; BP diastolic 77–91; PULSE 64–78; RESP 15–25; TEMP 36.1; O2SAT 92–95; BMI 23.6
--- NOTE | 2025-04-13 10:20 | DI.RAD.S_ITS ---
PROCEDURE: XR CHEST 1V INDICATIONS: wheezing TECHNIQUE: One view of the chest was acquired. COMPARISON: [facility], , XR CHEST 2V, 04/01/2019, 17:02. [facility], , CHEST 1 VIEW, 10/04/2016, 21:17. FINDINGS: Surgical changes and devices: Sternotomy. Lungs and pleura: Right-sided perihilar opacities. Peribronchial cuffing. Mildly increased pulmonary markings. Mediastinum: Mediastinal contours appear normal. Heart size is enlarged. Bones and chest wall: No suspicious bony lesions. Overlying soft tissues appear unremarkable. IMPRESSION: [id number] pulmonary edema. Questionable superimposed right-sided aspiration. Dictated by: Robbi Toure M.D. on 04/13/2025 at 10:45 Approved by: Robbi Toure M.D. on 04/13/2025 at 10:45
[2025-04-13] MEDS: ALBUTEROL 1.25 MG/3 ML NEB (PEDIATRIC) INH (10:23)
--- NOTE | 2025-04-13 10:38 | ED.ASTHMA ---
HPI - Asthma General Chief Complaint: Asthma Stated Complaint: SOB X1 DAY Time Seen by Provider: 04/13/25 10:23 Source: patient and family Mode of arrival: Ambulatory Limitations: no limitations History of Present Illness HPI Narrative: 84-year-old former smoker with a history of coronary artery disease, hypertension, dyslipidemia, prior coronary artery bypass graft prior stroke and resultant aphasia presents with complaint of shortness of breath. Patient's notes he was saw his primary care physician last week was diagnosed with the adult onset asthma as he was wheezy on exam has not had any PFTs performed. Patient does note that he does sometimes aspirate feels like there might be a component to this complicating his shortness of breath. He states he has been having some shortness of breath in particular for about a week patient states worse today. He did receive a steroid inhaler from his primary care but no albuterol inhaler. Last night used his 's albuterol inhaler which he states was somewhat helpful they note they can hear audible wheezing at times. States last night seemed to be kicked off by taking his home medications but he does not appreciate a direct correlation every time. No fevers or chills. No chest pain or pressure. No nausea or vomiting. No new swelling of arms or legs. No other GI or urinary symptoms. Patient and family note that he was chronic aphasia that he had PT for dysphagia but was cleared about 6 years ago. Home medications include Eliquis and losartan daily. Regular tobacco, no regular alcohol, no recreational drugs. Dr. Castillo as his primary care physician. Related Data Home Medications ?Medication ?Instructions ?Recorded ?Confirmed multivitamin 1 tab PO DAILY ##0 04/24/13 04/09/25 apixaban 5 mg tablet (Eliquis) 5 mg PO BID 11/18/19 04/09/25 tamsulosin 0.4 mg capsule 0.4 mg PO BID 11/18/19 04/09/25 losartan 25 mg tablet mg PO 03/18/25 04/09/25 valacyclovir 1 gram tablet 1,000 mg PO DAILY 03/18/25 04/09/25 Previous Rx's ?Medication ?Instructions ?Recorded fluticasone propionate 45 2 puff inhalation BID #12 grams 04/09/25 mcg-salmeterol 21 mcg/actuation HFA inhaler (Advair HFA) albuterol sulfate 90 mcg/actuation 2 puff inhalation Q4-6H PRN 04/13/25 aerosol inhaler (Ventolin HFA) shortness of breath or wheezing #6.7 grams furosemide 40 mg tablet (Lasix) 40 mg PO DAILY #4 tabs 04/13/25 Allergies Allergy/AdvReac Type Severity Reaction Status Date / Time codeine (CODEINE) Allergy Unknown Verified 04/13/25 10:16 levofloxacin (From LEVAQUIN) Allergy Unknown Verified 04/13/25 10:16 Review of Systems Review of Systems ROS Unobtainable: All systems reviewed & are unremarkable except as noted in HPI and below Patient History Medical History DOWNS (dyspnea on exertion) History of herpes simplex infection CVA (cerebral vascular accident) (~2019) BPH (benign prostatic hyperplasia) Hypertension Surgical History Hx of CABG Social History household members: spouse Smoking Status: Unknown if ever smoked Tobacco: How many years used: 5 (socially ) alcohol intake: former Smoking Status: Unknown if ever smoked alcohol intake frequency: holidays/special occasions only Exam Narrative Exam Narrative: GEN: well nourished, well appearing male, alert and oriented x 3, patient appears to be in mild distress. HEENT: Atraumatic, pupils are equal round reactive to light, extraocular movements are intact, nares are clear, TMs are clear with no fluid, there is no conjunctival pallor. Throat is clear without any exudates, erythema, tonsillar enlargement or uvular deviation HEART: Regular rate and rhythm without murmur, clicks, rubs. pulses are equal in upper and lower extremities. No edema bilateral upper and lower extremities. LUNGS:Lungs clear to auscultation, mild wheeze initially on exam, rales, crackles, chest moves symmetrically, no tachypnea ABD:bowel sounds normal, soft, non-tender, no guarding, rebound, rigidity, no masses noted, no hepatosplenomegaly :No CVA tenderness MSCL: Non-tender. NEURO:CN 2-12 intact, sensation normal Initial Vital Signs Initial Vital Signs: Vital Signs Pulse Rate 68 04/13/25 10:13 Blood Pressure 139/91 H 04/13/25 10:13 Pulse Oximetry 92 04/13/25 10:13 Course Orders Ordered: ED Orders 04/13/25 11:17 Complete Blood Count AUTO DIFF Stat Comprehensive Metabolic Panel Stat Lipase Stat NT-proBNP (BNP-Adult 18+) Stat Troponin & CK Cardiac Panel Stat 04/13/25 11:18 EKG-12 Lead Stat 04/13/25 13:17 Trop I [Troponin I] Stat Discontinued Medications Albuterol (Albuterol 1.25 Mg/3 Ml Neb (Pediatric)) 1.25 mg INH NOW ONE Stop: 04/13/25 10:21 Last Admin: 04/13/25 10:23 Dose: 1.25 mg Documented By: ARMEN Furosemide (Furosemide 40 Mg/4 Ml Vial) 40 mg IV NOW ONE Stop: 04/13/25 12:30 Last Admin: 04/13/25 12:46 Dose: 40 mg Documented By: ARMEN Lidocaine HCl 5 ml/ Sodium (Chloride) 55 mls @ 330 mls/hr IV NOW ONE Stop: 04/13/25 14:06 Last Admin: 04/13/25 14:22 Dose: Not Given Documented By: ARMEN Vital Signs Vital signs: Vital Signs - 8 hr 04/13/25 12:00 04/13/25 12:00 04/13/25 12:30 Pulse Rate 70 68 Respiratory Rate 15 17 Blood Pressure 187/87 H Pulse Oximetry 92 93 04/13/25 12:30 04/13/25 13:00 04/13/25 13:00 Pulse Rate 69 Respiratory Rate 16 Blood Pressure 170/88 H 183/86 H Pulse Oximetry 94 04/13/25 13:30 04/13/25 13:31 04/13/25 13:35 Pulse Rate 78 68 Respiratory Rate 21 20 Blood Pressure 178/80 H Pulse Oximetry 95 95 04/13/25 13:35 04/13/25 14:00 04/13/25 14:00 Pulse Rate 67 71 Respiratory Rate 17 23 Blood Pressure 172/77 H Pulse Oximetry 94 94 04/13/25 14:30 Pulse Rate 71 Respiratory Rate 20 Blood Pressure Pulse Oximetry 94 MDM - Asthma Lab Data 04/13/25 11:17 04/13/25 11:17 Labs: Lab Results 04/13/25 04/13/25 Range/Units 11:17 13:17 WBC 6.7 (4.5-11.0) X10^3/uL RBC 4.29 L (4.5-5.9) X10^6/uL Hgb 13.8 (13.5-17.5) g/dL Hct 41.6 (41-53) % MCV 97.0 (80-100) fL MCH 32.1 (26-34) PG MCHC 33.0 (30-36) % RDW 14.3 (11.6-14.8) % Plt Count 184 (150-400) X10^3/uL Neut % (Auto) 77.0 H (50-75) % Lymph % (Auto) 13.8 L (25-40) % [place] % (Auto) 7.8 (3-14) % Eos % (Auto) 0.8 L (2-4) % Baso % (Auto) 0.6 (0-2) % Neut # (Auto) 5100 (6196-3843) /uL Lymph # (Auto) 900 L (6245-1654) /uL [place] # (Auto) 500 (0-900) /uL Eos # (Auto) 100 (0-450) /uL Baso # (Auto) 0 (0-100) /uL Sodium 139 (137-145) mmol/L Potassium 4.6 (3.4-5.1) mmol/L Chloride 108 H (98-107) mmol/L Carbon Dioxide 21 L (22-32) mmol/L BUN 29 H (9-20) mg/dL Creatinine 1.43 H (0.66-1.25) mg/dL Estimated GFR 48 L (>60) mL/min BUN/Creatinine Ratio 20.3 (6-22) Glucose 102 H (70-99) mg/dL Calcium 8.6 (8.4-10.2) mg/dL Total Bilirubin 1.2 (0.2-1.3) mg/dL AST 35 (17-59) IU/L ALT 21 (<50) IU/L Alkaline Phosphatase 52 (38-126) U/L Total Creatine Kinase 82 (55-170) U/L Troponin I 0.053 H 0.056 H (0.01-0.034) ng/mL NT-Pro-B Natriuret Pep 3650 H (<450) pg/mL Total Protein 7.4 (6.3-8.2) g/dL Albumin 4.2 (3.5-5.0) g/dL Globulin 3.2 (1.7-4.1) g/dL Albumin/Globulin Ratio 1.3 (1.0-2.8) Lipase 63 (23-300) U/L ECG Data Attestation: I personally reviewed and interpreted this ECG as follows: Prior ECG tracings: available for review Interpretation: AFib rate of 66 QRS of 100 QTC of 478, no acute ST elevation. Patient was prior from 06/23/2020 which also shows atrial fibrillation rate controlled. MDM Narrative Medical decision making narrative: Chest x-ray shows [id number] pulmonary edema, peribronchial cuffing. Mildly increased pulmonary markings. Questionable superimposed right-sided aspiration. Heart size is enlarged. EKG shows atrial fibrillation. Labs show white count of 6 7 platelets of 184, hemoglobin of 13.8. Creatinine is 1.43 appears improved from priors in 2021, BUN 29 CO2 is 21 chloride of 108 potassium 4.6 sodium is 139 glucose is 102 troponin 0.053 with a BNP of 3650. Repeat troponin is 0.056 Discussed with the patient's family they have a follow up appointment today they are agreeable to obtain labs as he notes that he was had issues with aspiration in the past I suspect that this maybe part of his causes symptoms but we will also look for congestive heart failure as he does have some pulmonary edema. Does not have any history of heart failure or using Lasix but does have a cardiac history. Patient's workup does show changes consistent with CHF, indeterminate troponin. Patient's prior has been negative although 0.031 I in June of 2020, EKG shows he was rate controlled in AFib, BNP is elevated at 3500 no priors for comparison we will repeat troponin although patient does not have any active or acute chest pain. Was given a dose of Lasix. This may also be contributing to his wheezing and shortness of breath. Spoke with both patient and patient has not appointment tomorrow with his primary care physician. I suspect he may have a component of aspiration as well as congestive heart failure causing his wheezing. His wheeze improved here with neb but he did not notice a significant change in his shortness of breath he was never had chest pain or pressure my suspicion for acute coronary syndrome in his lower. Patient urinated several times here in the department after his furosemide. His breathing feels much improved. He was no prior BNP is for comparison but we will prescribe a short course of Lasix. We did also discuss potentially starting an oral antibiotic but patient and family elect to hold off and see their physician tomorrow and see how he was feeling after these treatments. Patient to follow up tomorrow with the primary care for recheck. Discharge Plan Departure Patient Disposition: Home Clinical Impression: CHF (congestive heart failure) Instructions: DI for Heart Failure Activity Restrictions/Additional Instructions: Follow up with your physician at your appointment tomorrow. You have changes on your chest x-ray consistent with potential aspiration as well as some pulmonary edema on your labs support that you likely have a component of congestive heart failure. Both of these things could be contributing to your wheezing. You have been prescribed a short course of diuretic, follow up with your physician so they can follow your renal function closely and see if this improves her symptoms. I would also discuss being re-evaluated for dysphagia and aspiration with a swallowing evaluation. You can continue to use the inhaler if you find it helpful. Use with a spacer. You can give 4-6 puffs every 4 hours as needed. Take diuretic once daily recommend taking it in the morning. You had your 1st dose here this evening. Take your next dose tomorrow morning. Prescription was sent to [facility] in [place]. Please return if you have new chest pain, increasing shortness of breath, new swelling of your extremities, lightheadedness or passing out, vomiting or other new or concerning changes. Prescriptions: New albuterol sulfate [Ventolin HFA] 90 mcg/actuation HFA aerosol inhaler 2 puff inhalation Q4-6H PRN (Reason: shortness of breath or wheezing) Qty: 6.7 0RF furosemide [Lasix] 40 mg tablet 40 mg PO DAILY Qty: 4 0RF No Action multivitamin Tablet 1 tab PO DAILY Qty: 0 fluticasone propion-salmeterol [Advair HFA] 45-21 mcg/actuation HFA aerosol inhaler 2 puff inhalation BID Qty: 12 0RF losartan 25 mg tablet PO valacyclovir 1 gram tablet 1,000 mg PO DAILY Eliquis 5 mg tablet 5 mg PO BID tamsulosin 0.4 mg capsule 0.4 mg PO BID Patient Comments: take 1 capsule by mouth twice a day Referrals: Amanda Castillo DO [Primary Care Provider, Medical] Stand Alone Forms: Patient Portal/API
--- NOTE | 2025-04-13 11:18 | EKG_ITS ---
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
[2025-04-13 11:27] LABS: Add Manual Diff / Slide Review NO; Hematocrit 41.6 % (41-53); Hemoglobin 13.8 g/dL (13.5-17.5); Lymphocytes Absolute Auto 900 /uL (1100-4500); Mean Corpuscular HGB Conc 33.0 % (30-36); Mean Corpuscular Hemoglobin 32.1 PG (26-34); Mean Corpuscular Volume 97.0 fL (80-100); Platelet Count 184 X10^3/uL (150-400)
[2025-04-13 11:45] LABS: Alanine Aminotransferase 21 IU/L (<50); Albumin 4.2 g/dL (3.5-5.0); Albumin Globulin Ratio 1.3 (1.0-2.8); Alkaline Phosphatase 52 U/L (38-126); Blood Urea Nitrogen 29 mg/dL (9-20); Calcium 8.6 mg/dL (8.4-10.2); Carbon Dioxide 21 mmol/L (22-32); Chloride 108 mmol/L (98-107); Creatine Kinase 82 U/L (55-170); Estimated Glomerular Filt Rate 48 mL/min (>60); Globulin 3.2 g/dL (1.7-4.1); Glucose 102 mg/dL (70-99); HEMOLYSIS 19 (0-50); Lipase 63 U/L (23-300); Potassium 4.6 mmol/L (3.4-5.1); Sodium 139 mmol/L (137-145); Total Protein 7.4 g/dL (6.3-8.2)
[2025-04-13 11:57] LABS: NT-proBNP (BNP-Adult 18+) 3650 pg/mL (<450); Troponin I 0.053 ng/mL (0.01-0.034)
[2025-04-13] MEDS: FUROSEMIDE 40 MG/4 ML VIAL IV (12:46)
[2025-04-13 13:49] LABS: Troponin I 0.056 ng/mL (0.01-0.034)
--- NOTE | 2025-04-13 15:05 | PC.NURSE ---
Improved SOB. Exertional dyspnea. Good urine output; unmeasurable d/t family dumping urine and some on bed sheets.
== END 2025-04-13 15:07 | disposition home or self-care (01) ==
PROVIDERS: Emergency Provider Emergency Medicine; Family Provider Family Medicine; PCP Family Medicine
DX: I11.0 Hypertensive heart disease with heart failure (principal); I50.9 Heart failure, unspecified; I48.91 Unspecified atrial fibrillation; Z72.0 Tobacco use
CPT/HCPCS: 71045; 80053; 82550; 83690; 83880; 84484; 85025; 93005; 93010; 94640; 96374; 99284; J1938; J7613

== ENCOUNTER → 2025-04-15 13:41 | Outpatient (CLI) | payer OTHER, SELFPAY | PROVIDERS: Family Provider Family Medicine; PCP Family Medicine; Referring Provider Family Medicine; Visit Provider Surgery | DX: R47.02 Dysphasia (principal); I69.398 Other sequelae of cerebral infarction; I10 Essential (primary) hypertension; Z86.79 Personal history of other diseases of the circulatory system; N40.1 Benign prostatic hyperplasia with lower urinary tract symptoms | CPT/HCPCS: 99203; 99212 ==

== ENCOUNTER → 2025-05-04 11:44 | Outpatient (CLI) | payer OTHER, SELFPAY ==
--- NOTE | 2025-05-04 16:21 | ST.SWALLOW ---
Visit Care Team Role Provider Type Amanda Castillo DO Attending Provider Physician Family Provider Primary Care Provider Referring Provider Specialty: Medical Address: [address] [place] [address], [address], [place], [address] Email: [email or web address] Modified Barium Swallow Study REFERRAL AND INFORMATION AIDE Modified Barium Swallow Study Start: 05/04/25 15:28 Freq: Status: Active Protocol: Document 05/04/25 15:29 LNK (Rec: 05/04/25 16:21 LNK Desktop) Modified Barium Swallow Study Total Time Visit Start Time 12:00 Visit Stop Time 12:45 Total Visit Minutes 45 Referral Referring Physician Amanda Castillo DO Reason for Referral Dysphagia Setting Setting Outpatient Care Patient Information Identification Type Name,Date of Patient History Pt was seen for a Modified Barium Swallow Study secondary to history of coughing when eating or drinking. Pt's PMH include CVA following coronary artery bypass grafting on March 03, 2019. His deficits were aphasia, generalized weakness. Pt's attended the [facility]SS with him as pt was reported to be anxious, have difficulty with comprehension and was easily overwhelmed in new situations. Pt has been receiving ST services since his CVA and is reported to be continuing to make progress. Pt's reported that he has been having difficulty with swallowing during meals, frequently coughing . Pt is currently receiving teletherapy for speech/swallow therapy. According to his , his REFERRAL AND INFORMATION AIDE instructed the pt to eat/drink slowly, chew foods well and take medications in a carrier. These strategies have been successful in reducing the frequency of coughing. According to medical records reviewed, pt as a history of coronary artery disease, hypertension, dyslipidemia, prior coronary artery bypass graft prior stroke and resultant aphasia. Pt was seen in ED on 04/13/25 for shortness of breath. He was saw his primary care physician last week was diagnosed with the adult onset asthma as he was wheezy on exam has not had any PFTs performed. Patient noted that he does sometimes aspirate feels like there might be a component to this complicating his shortness of breath. At that time, a chest x-ray showed mild-to- moderate pulmonary edema, sheila-bronchial cuffing. Mildly increased pulmonary markings. Questionable superimposed right-sided aspiration. Additionally, patient's workup was reported to show changes consistent with CHF. Subjective Pt was seated in the flouroscopy chair with directions Observations and procedures explained for him. He indicated he understood and agreed to proceed. Patient Positioning Position View Lat-A/P Imaging Lateral View Textures Administered Trials Presented Thin Liquid via Spoon (IDDSI 0),Thin Liquid via Cup ( IDDSI 0),Extremely Thick Liquid via Spoon (IDDSI 4), Regular (IDDSI 7) Barium Tablet Yes The IDDSI Framework Protocol: IDDSI.1 Oral Impairment Source: The Modified Barium Swallow Impairment Profile (MBSImP??) Lip Closure No labial escape Tongue Control Cohesive bolus between tongue to palatal seal During Bolus Hold Bolus Preparation/ Slow prolonged chewing/mashing with complete re- Mastication collection Bolus Transport/ Delayed initiation of tongue motion Lingual Motion Oral Residue Complete oral clearance Initiation of Bolus head in valleculae Pharyngeal Swallow Additional Oral *OME and DKS were not completed secondary to pt's Impairment difficulty with auditory comprehension and confusion Observations *Dentition natural with missing posterior teeth and in good hygiene *Mastication observed with rotary chew pattern. *Good bolus formation, control and AP transition. *Velopharyngeal closure was WNL. Pharyngeal Impairment Source: The Modified Barium Swallow Impairment Profile (MBSImP??) Soft Palate No bolus between soft palate & pharyngeal wall Elevation Laryngeal Elevation Part.sup.move.thyroid cart/part.approx.arytenoids to epiglot.petiole Anterior Hyoid Partial anterior movement Excursion Epiglottic Movement Complete inversion Laryngeal Vestibular Incomplete; narrow column air/contrast in laryngeal Closure vestibule Pharyngeal Stripping Present - diminished Wave Pharyngoesophageal Complete distention & complete duration; no obstruction Segment Opening of flow Tongue Base Wide column of contrast/air betwn tongue base & post. Retraction pharyngeal wall Pharyngeal Residue Collection of residue within/on pharyngeal structures Location Valleculae Additional *Flash penetration observed with consecutive swallows Pharyngeal thin contrast (WNL for pt's age) . No contrast residual Impairment remained in laryngeal vestibule Observations *Reduced base of tongue reteraction strength *Reduced hyolaryngeal elevation and movement *Complete epiglottal inversion *No tracheal aspiration observed A/P View Textures Administered Trials Presented Thin Liquid via Cup (IDDSI 0) The IDDSI Framework Protocol: IDDSI.1 A/P View Observations Pharyngeal Complete Contraction Esophageal Clearance Complete clearance; esophageal coating Upright Position Vocal Fold Function Good Esophageal Function WFL Additional A-P Esophageal phase of swallow observed to be WNL. Barium Observations tablet cleared esophagus in a timely manner Clinical Impressions Dysphagia Type Oral,Pharyngeal Findings Pt presented with oropharyngeal dysphagia. Pt demonstrated reduced speed of mastication with a delayed swallow initiation. Pt was observed to chew solid trials slowly and mastication was observed to be WFL. Reduced base of tongue strength, hyolaryngeal elevation and movement may have impacted the seal of the of the laryngeal vestibule with flash penetration noted. No aspiration was observed. Pt's use of safe swallow strategies as directed by his REFERRAL AND INFORMATION AIDE were observed to be effective re: reduced aspiration risk. Recommend contiued ST as indicated Rehabilitation Excellent Potential Patient Appropriate Yes for Therapy Recommendations Diet Liquids Order Thin (IDDSI 0) Diet Order Regular (IDDSI 7) Medication Whole in Carrier Recommendation Additional Dietary Reminders to Use Strategies Needs Treatment Plan Therapy Outpatient Speech Therapy Recommendations
== END ==
LOC: RAD 11:45
PROVIDERS: Family Provider Family Medicine; PCP Family Medicine; Referring Provider Family Medicine; Visit Provider Family Medicine
DX: I63.9 Cerebral infarction, unspecified (principal); R13.10 Dysphagia, unspecified
CPT/HCPCS: 74230; 92611

== ENCOUNTER → 2025-06-19 10:22 | Outpatient (CLI) | payer OTHER, SELFPAY ==
[2025-06-19 11:24] LABS: Appearance Urine UA CLOUDY; Bilirubin Urine UA NEGATIVE (NEGATIVE); Color Urine UA YELLOW; Glucose Urine UA NEGATIVE (Negative); Ketones Urine UA NEGATIVE (NEGATIVE); Leukocyte Esterase Urine UA 2+ (NEGATIVE); Nitrite Urine UA NEGATIVE (Negative); Occult Blood Urine UA 3+ (Negative); Protein Urine UA 2+ (Negative); Specific Gravity Urine UA 1.015 (1.000-1.035); Urobilinogen Urine UA 0.2 E.U./dL (0.2); pH Urine UA 6.0 (4.5-8.0)
[2025-06-19 11:39] LABS: Culture Indicated Urine Specimen Cultured
== END ==
PROVIDERS: PCP Family Medicine; Referring Provider Family Medicine; Visit Provider Family Medicine
DX: R35.0 Frequency of micturition (principal)
CPT/HCPCS: 81001; 87086

== ENCOUNTER 2025-07-01 17:39 | Emergency (ER) | payer OTHER, SELFPAY ==
[2025-07-01 17:51] VITALS: BP 185/87; PULSE 72; RESP 16; TEMP 36.6; O2SAT 97; BMI 23.6
[2025-07-01 18:24] LABS: Appearance Urine UA CLOUDY; Bilirubin Urine UA NEGATIVE (NEGATIVE); Color Urine UA RED; Glucose Urine UA NEGATIVE (Negative); Ketones Urine UA NEGATIVE (NEGATIVE); Leukocyte Esterase Urine UA NEGATIVE (NEGATIVE); Nitrite Urine UA NEGATIVE (Negative); Occult Blood Urine UA 3+ (Negative); Protein Urine UA 3+ (Negative); Specific Gravity Urine UA 1.020 (1.000-1.035); Urobilinogen Urine UA 0.2 E.U./dL (0.2); pH Urine UA 6.0 (4.5-8.0)
[2025-07-01 18:29] LABS: Culture Indicated Urine Specimen Cultured
--- NOTE | 2025-07-01 21:49 | ED.MALEGU ---
HPI - Male Genitourinary General Chief complaint: Urogenital-Male Stated complaint: hematuria Time Seen by Provider: 07/01/25 21:49 Source: family Mode of arrival: Wheelchair History of Present Illness HPI Narrative: 84-year-old male with history of Eliquis anticoagulation, prior urine infections, has had repeated courses of nitrofurantoin antibiotics, off antibiotics 3 days ago, denied having some bloody urine. No fevers or chills. No nausea or vomiting. No injury or trauma new activities. Has Urology appointment next week. Related Data Home Medications ?Medication ?Instructions ?Recorded ?Confirmed multivitamin 1 tab PO DAILY ##0 04/24/13 06/07/25 tamsulosin 0.4 mg capsule 0.4 mg PO BID 11/18/19 06/07/25 valacyclovir 1 gram tablet 1,000 mg PO DAILY 03/18/25 06/07/25 apixaban 5 mg tablet (Eliquis) 2.5 mg PO BID 04/14/25 06/07/25 hydralazine 10 mg tablet 25 mg PO 3XD 05/19/25 06/07/25 losartan 25 mg tablet See Rx Instructions PO .COMPLEX 05/19/25 06/07/25 Previous Rx's ?Medication ?Instructions ?Recorded fluticasone propionate 45 2 puff inhalation BID #12 grams 04/09/25 mcg-salmeterol 21 mcg/actuation HFA inhaler (Advair HFA) albuterol sulfate 90 mcg/actuation 2 puff inhalation Q4-6H PRN 04/13/25 aerosol inhaler (Ventolin HFA) shortness of breath or wheezing #6.7 grams furosemide 20 mg tablet 20 mg PO DAILY #30 tabs 04/14/25 diazepam 5 mg tablet 2.5 - 5 mg (0.5 - 1 x 5 mg) PO 05/19/25 ONCE PRN panic #10 tabs nitrofurantoin 100 mg PO BID #60 caps 06/23/25 monohydrate/macrocrystals 100 mg capsule (Macrobid) Allergies Allergy/AdvReac Type Severity Reaction Status Date / Time codeine (CODEINE) Allergy Unknown ITCHING Verified 07/01/25 17:56 levofloxacin (From LEVAQUIN) Allergy Unknown Verified 07/01/25 17:56 Patient History Medical History DOWNS (dyspnea on exertion) History of herpes simplex infection CVA (cerebral vascular accident) (~2019) BPH (benign prostatic hyperplasia) Hypertension Surgical History Hx of CABG Social History household members: spouse Tobacco: How many years used: 5 (socially ) alcohol intake: former alcohol intake frequency: holidays/special occasions only Exam Narrative Exam Narrative: GENERAL: Well-developed patient, in mild distress. HEAD: Atraumatic. Normocephalic. EYES: Pupils equal round and reactive. Extraocular motions intact. No scleral icterus. No injection or drainage. ENT: Nose without bleeding, purulent drainage. Throat without erythema, tonsillar hypertrophy or exudate. Airway patent. NECK: Trachea midline. Non tender CARDIOVASCULAR: Regular rate and rhythm without murmurs, gallops, or rubs. RESPIRATORY: Clear to auscultation. Breath sounds equal bilaterally. No wheezes, rales, or rhonchi. GASTROINTESTINAL: Abdomen soft, non-tender, nondistended. EXTREMITIES: No edema or joint tenderness. BACK: Nontender without deformity or crepitance. No flank tenderness. NEURO: AOx3. Motor functions grossly nonfocal. SKIN: No rash or erythema of visible areas Initial Vital Signs Initial Vital Signs: Vital Signs Temperature 98 F 07/01/25 17:51 Pulse Rate 72 07/01/25 17:51 Respiratory Rate 16 07/01/25 17:51 Blood Pressure 185/87 H 07/01/25 17:51 Pulse Oximetry 97 07/01/25 17:51 Oxygen Delivery Method Room Air 07/01/25 17:51 Course Orders Ordered: ED Orders 07/01/25 18:10 Urinalysis and Microscopic Stat Urine Culture Stat 07/01/25 20:46 CBC Auto Diff [Complete Blood Count AUTO DIFF] Stat CMP [Comprehensive Metabolic Panel] Stat Vital Signs Vital signs: Vital Signs - 8 hr 07/01/25 22:27 Temperature 97.7 F Pulse Rate 86 Respiratory Rate 22 Blood Pressure 178/84 H Pulse Oximetry 96 Oxygen Delivery Method Room Air MDM - Male Genitourinary Lab Data Attestation: I reviewed the patient's lab results. Lab results narrative: Urinalysis obtained from triage shows red cells and white cells with little bacteria. Urine culture pending. Labs: Lab Results 07/01/25 Range/Units 18:10 Urine Color Red Urine Appearance Cloudy Urine pH 6.0 (4.5-8.0) Ur Specific [place] 1.020 (1.000-1.035) Urine Protein 3+ H (Negative) Urine Glucose (UA) Negative (Negative) g/dL Urine Ketones Negative (NEGATIVE) Urine Occult Blood 3+ H (Negative) Urine Nitrate Negative (Negative) Urine Bilirubin Negative (NEGATIVE) Urine Urobilinogen 0.2 (0.2) E.U./dL Ur Leukocyte Esterase Negative (NEGATIVE) Urine RBC >100/hpf H (0-5/HPF) Urine WBC 30-100/hpf H (0-5/HPF) Ur Squamous Epith Cells None seen (0-5/HPF) Urine Bacteria None seen (None) Ur Culture Indicated? Specimen cultured Vol Urine Centrifuged 10ml (spun) MDM Narrative Medical decision making narrative: 84-year-old male with history of recurrent urinary tract infection, has recently completed nitrofurantoin additional course of oral antibiotic, per family has resistant to other types of antibiotics, off antibiotics for the last 3 days, now with gross hematuria symptoms. No fever at triage, no anti fever medications recently taken. Urinalysis shows red cells with some white cells, no bacteria. Urine culture requested. We discussed lab testing, they decided not to pursue lab testing at this time. We discussed imaging such as CT abdomen and pelvis noncontrast study, also declined. Advised to continue with the nitrofurantoin twice daily oral course for 7 days. Follow up next week with Urology as planned. Follow up with PCP Saturday to review symptoms and results of urine culture results. Discharged home per patient preference, with family. Return precautions discussed. Discharge Plan Departure Patient Disposition: Home Clinical Impression: Hematuria, Recurrent urinary tract infection Activity Restrictions/Additional Instructions: History of Eliquis chronic anticoagulation. Bloody appearing urine tonight. No fever on triage. Urinalysis suspicious for infection. Recently off nitrofurantoin 2-3 days ago, restarted earlier today with onset of bloody appearing urine. No nausea or vomiting. We discussed blood testing, declined. We discussed imaging that might include CT scan abdomen and pelvis including the kidneys and bladder and ureter structures, this test was also declined. You elected to have resumption of nitrofurantoin antibiotic, of which you have a supply, encouraged to take 1 tablet twice daily for 7 day course. Follow up with your urologist as scheduled next week. Continue your chronic medications as prescribed for now. Return earlier to this/nearest emergency department for any change worsening symptoms or any concerns prior. Prescriptions: No Action multivitamin Tablet 1 tab PO DAILY Qty: 0 fluticasone propion-salmeterol [Advair HFA] 45-21 mcg/actuation HFA aerosol inhaler 2 puff inhalation BID Qty: 12 0RF diazepam 5 mg tablet 2.5 - 5 mg PO ONCE PRN (Reason: panic) Qty: 10 0RF losartan 25 mg tablet See Rx Instructions PO .COMPLEX Rx Instructions: 75mg by mouth BID hydralazine 10 mg tablet 25 mg PO 3XD nitrofurantoin monohyd/m-cryst [Macrobid] 100 mg capsule 100 mg PO BID Qty: 60 2RF Rx Instructions: must administer with a meal/food valacyclovir 1 gram tablet 1,000 mg PO DAILY furosemide 20 mg tablet 20 mg PO DAILY Qty: 30 0RF tamsulosin 0.4 mg capsule 0.4 mg PO BID Patient Comments: take 1 capsule by mouth twice a day Eliquis 5 mg tablet 2.5 mg PO BID albuterol sulfate [Ventolin HFA] 90 mcg/actuation HFA aerosol inhaler 2 puff inhalation Q4-6H PRN (Reason: shortness of breath or wheezing) Qty: 6.7 0RF Referrals: Amanda Castillo DO [Primary Care Provider, Medical] Stand Alone Forms: Patient Portal/API
[2025-07-01 22:27] VITALS: BP 178/84; PULSE 86; RESP 22; TEMP 36.5; O2SAT 96
== END 2025-07-01 22:36 | disposition home or self-care (01) ==
PROVIDERS: Emergency Provider Emergency Medicine; PCP Family Medicine
DX: R31.9 Hematuria, unspecified (principal); N39.0 Urinary tract infection, site not specified
CPT/HCPCS: 81001; 87086; 99281; 99282

== ENCOUNTER → 2025-08-06 13:54 | Outpatient (CLI) | payer OTHER, SELFPAY ==
--- NOTE | 2025-08-06 13:56 | DI.CT.S_ITS ---
PROCEDURE: CT IVP A/P W/WO INDICATIONS: 84 y/o M w/ gross hematuria, eval upper tracts TECHNIQUE: Optional 5 mm thick noncontrast images acquired from the diaphragm to the symphysis pubis. After the administration of intravenous contrast, 5 mm thick images acquired from the diaphragm to the symphysis pubis after a 10-minute delay. 2 mm thick coronal and sagittal reformats were then performed of the kidneys and ureters. For radiation dose reduction, the following was used: automated exposure control, adjustment of mA and/or kV according to patient size. COMPARISON: None. FINDINGS: Image quality: Diagnostic. Kidneys and Ureters: Both kidneys are normal in size, without hydronephrosis or nephrolithiasis. No perinephric fat stranding. Bilateral simple renal and peripelvic cysts are present.There is normal bilateral renal enhancement. Renal calyces appear normal in morphology when filled with contrast. Opacified portions of both ureters demonstrate normal caliber Bladder: Bladder wall thickness is normal. No calcified bladder stones. OTHER: Lower chest: Small bilateral pleural effusions with associated mild basilar atelectasis. Coronary artery calcifications partially visualized. Median sternotomy wires, partially visualized. Liver: No solid mass. Gallbladder: No radiopaque gallstones or wall thickening. Biliary ducts: No biliary dilation. Pancreas: No ductal dilation. Spleen: Size is within normal limits. Adrenal Glands: No adrenal nodules. Stomach and Bowel: Normal colonic caliber, without significant wall thickening. Colonic diverticulosis without evidence of acute diverticulitis. Normal appendix. Peritoneum: No abnormal intraperitoneal fluid. No free air. Ventral Wall: No hernia. Abdominal Nodes: No retroperitoneal or mesenteric adenopathy by size criteria. Vessels: Aorta and inferior vena cava are normal in size. PELVIS: Pelvic Organs: Prostatomegaly. Pelvic Nodes: No enlarged lymph nodes. Miscellaneous: No inguinal hernias are seen. Bones: No aggressive osseous abnormality. Degenerative changes of the visualized spine. IMPRESSION: 1. No nephrolithiasis or filling defects within the opacified renal collecting system or ureters. 2. Prostatomegaly. 3. Small bilateral pleural effusions with associated mild basilar atelectasis. Dictated by: Christel Lu M.D. on 08/08/2025 at 14:15 Approved by: Christel Lu M.D. on 08/08/2025 at 14:28
[2025-08-06 14:29] LABS: Estimated Glomerular Filt Rate 43 mL/min (>60)
[2025-08-06 14:41] LABS: Alanine Aminotransferase 15 IU/L (<50); Albumin 4.2 g/dL (3.5-5.0); Albumin Globulin Ratio 1.2 (1.0-2.8); Alkaline Phosphatase 68 U/L (38-126); Blood Urea Nitrogen 28 mg/dL (9-20); Calcium 8.7 mg/dL (8.4-10.2); Carbon Dioxide 25 mmol/L (22-32); Chloride 106 mmol/L (98-107); Estimated Glomerular Filt Rate 43 mL/min (>60); Globulin 3.4 g/dL (1.7-4.1); Glucose 118 mg/dL (70-99); HEMOLYSIS < 15 (0-50); Potassium 4.4 mmol/L (3.4-5.1); Sodium 141 mmol/L (137-145); Total Protein 7.6 g/dL (6.3-8.2)
[2025-08-06 14:50] LABS: NT-proBNP (BNP-Adult 18+) 2460 pg/mL (<450)
== END ==
LOC: CT 13:55
PROVIDERS: PCP Family Medicine; Referring Provider Urology; Visit Provider Urology
DX: I50.9 Heart failure, unspecified (principal); J90 Pleural effusion, not elsewhere classified; J98.11 Atelectasis; N40.0 Benign prostatic hyperplasia without lower urinary tract symptoms; R31.0 Gross hematuria; N28.1 Cyst of kidney, acquired; I25.10 Atherosclerotic heart disease of native coronary artery without angina pectoris; K57.90 Diverticulosis of intestine, part unspecified, without perforation or abscess without bleeding
CPT/HCPCS: 36415; 74178; 80053; 82565; 83880; Q9967

== ENCOUNTER 2025-08-26 06:58 | Emergency (ER) | payer OTHER, SELFPAY ==
[2025-08-26 07:06] VITALS: BP 176/88; PULSE 74; RESP 16; TEMP 36.8; O2SAT 98; BMI 23.6
--- NOTE | 2025-08-26 07:12 | EKG_ITS ---
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
--- NOTE | 2025-08-26 07:20 | ED_ITS ---
HPI - Chest Pain General Chief Complaint: Chest Pain Stated Complaint: Chest tightness cough Time Seen by Provider: 08/26/25 07:01 Source: patient and EMS Mode of arrival: EMS Limitations: no limitations Limitations: no limitations History of Present Illness HPI narrative: 85-year-old male former smoker with a history of coronary artery disease, hypertension, dyslipidemia, CKD, prior coronary artery bypass graft, prior stroke with persistent aphasia, atrial fibrillation on Eliquis presents with complaint of cough for the past 3 days and some chest tightness that started today. Patient has not had any fevers or chills. Patient has had some nasal congestion been bili in his nose a lot. Denies chest pain does feel little bit tight does not seem to be worse with the exertion. Denies any shortness of breath. No nausea or vomiting. No diarrhea. No new swelling in extremities. Patient's cough has been nonproductive. Was worse last night. Patient's noted she gave additional Lasix up to 60 mg total she thought it might be CHF. She does note patient recently had a birthday on the and was around a lot of people but no known sick contacts. Patient has not had any other changes to his medications does have some chronic right-sided deficits and aphasia from prior stroke. He has been taking his medications regularly. He does have an inhaler he uses occasionally she gave it 2 times overnight was helpful. Reported allergies to codeine and Levaquin. No tobacco, occasional alcohol, no recreational drugs. Dr. Rosio castillo as his primary care physician. 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 Related Data Home Medications ?Medication ?Instructions ?Recorded ?Confirmed multivitamin 1 tab PO DAILY ##0 04/24/13 07/30/25 tamsulosin 0.4 mg capsule 0.4 mg PO BID 11/18/1907/30 valacyclovir 1 gram tablet 1,000 mg PO DAILY 03/18/25 07/30/25 apixaban 5 mg tablet (Eliquis) 2.5 mg PO BID 04/14/25 07/30/25 hydralazine 10 mg tablet 25 mg PO 3XD 05/19/25 losartan 25 mg tablet See Rx Instructions PO .COMP LIGIA 05/19/25 07/30/25 Previous Rx's ?Medication ?Instructions ?Recorded fluticasone propionate 45 2 puff inhalation BID #12 gr ams 04/09/25 mcg-salmeterol 21 mcg/actuation HFA inhaler (Advair HFA) albuterol sulfate 90 mcg/actuation 2 puff inhalation Q 4-6H PRN 04/13/25 aerosol inhaler (Ventolin HFA) shortness of breath or wheezing #6.7 grams diazepam 5 mg tablet 2.5 - 5 mg (0.5 - 1 x 5 mg) PO 05/19/25 ONCE PRN panic #10 tabs mirabegron 50 mg tablet,extended 50 mg PO DAILY #90 ta bs 07/30/25 release 24 hr (Myrbetriq) nitrofurantoin 100 mg PO BID #60 caps 08/18 monohydrate/macrocrystals 100 mg capsule (Macrobid) furosemide 20 mg tablet See Rx Instructions PO DAILY 08/24/25 shortness of breath #30 tabs albuterol sulfate 90 mcg/actuation 2 inh inhalation Q4 -6H PRN 08/26/25 breath activated powder shortness of breath or wheez ing #1 inhaler,sensor ea prednisone 10 mg tablets in a dose See Rx Instructions PO .COMPLEX 08/26/25 pack #21 ea Allergies Allergy/AdvReac Type Severity Reaction Status Date / Time codeine (CODEINE) Allergy Unknown ITCHING Verified 08/26/25 07:06 levofloxacin (From LEVAQUIN) Allergy Unknown Verified 08/26/25 07:06 Review of Systems Review of Systems ROS Unobtainable: All systems reviewed & are unremarkable except as noted in HPI and below Patient History Medical History DOWNS (dyspnea on exertion) History of herpes simplex infection CVA (cerebral vascular accident) (~2019) BPH (benign prostatic hyperplasia) Hypertension Surgical History Hx of CABG Social History household members: spouse Smoking Status: Never smoker Tobacco: How many years used: 5 (socially ) alcohol intake: former Smoking Status: Never smoker alcohol intake frequency: holidays/special occasions only Exam Narrative Exam Narrative: GEN: well nourished, well appearing male, alert and oriented x 3, patient appears to be in mild distress. Patient has some aphasia at baseline answers questions easily with yes no has difficulty with more extensive answers. HEENT: Atraumatic, pupils are equal round reactive to light, extraocular movements are intact, patient has a mild nasal congestion, there is no conjunctival pallor. Throat is clear without any exudates, erythema, tonsillar enlargement or uvular deviation HEART: Regular rate and rhythm without murmur, clicks, rubs. No JVD. No edema bilateral lower extremity LUNGS:Lungs clear to auscultation, no wheezes, rales, crackles, chest moves symmetrically ABD:bowel sounds normal, soft, non-tender, no guarding, rebound, rigidity, no masses noted, no hepatosplenomegaly :No CVA tenderness MSCL: Non-tender, no muscle atrophy. No edema. NEURO:CN 2-12 intact, sensation normal. Initial Vital Signs Initial Vital Signs: Vital Signs Temperature 98.2 F 08/26/25 07:06 Pulse Rate 74 08/26/25 07:06 Respiratory Rate 16 08/26/25 07:06 Blood Pressure 176/88 H 08/26/25 07:06 Pulse Oximetry 98 08/26/25 07:06 Oxygen Delivery Method Room Air 08/26/25 07:06 Course Orders Ordered: Discontinued Medications Methylprednisolone (Methylprednisolone Succ 125 Mg/2 Ml Vial) 125 mg IV NOW ONE Stop: 08/26/25 10:17 Last Admin: 08/26/25 10:25 Dose: 125 mg Documented By: HYUN Vital Signs Vital signs: Vital Signs - 8 hr 08/26/25 07:06 Temperature 98.2 F Pulse Rate 74 Respiratory Rate 16 Blood Pressure 176/88 H Pulse Oximetry 98 Oxygen Delivery Method Room Air MDM - Chest Pain Lab Data 08/26/25 07:09 08/26/25 07:09 Labs: Lab Results 08/26/25 08/26/25 08/26/25 Range/Units 07:09 07:32 09:25 WBC 7.2 (4.5-11.0) X10^3/uL RBC 4.48 L (4.5-5.9) X10^6/uL Hgb 14.0 (13.5-17.5) g/dL Hct 42.3 (41-53) % MCV 94.3 (80-100) fL MCH 31.3 (26-34) PG MCHC 33.2 (30-36) % RDW 14.7 (11.6-14.8) % Plt Count 213 (150-400) X10^3/uL Neut % (Auto) 70.4 (50-75) % Lymph % (Auto) 18.9 L (25-40) % [place] % (Auto) 7.8 (3-14) % Eos % (Auto) 2.0 (2-4) % Baso % (Auto) 0.9 (0-2) % Neut # (Auto) 5000 (4089-1976) /uL Lymph # (Auto) 1400 (7010-0346) /uL [place] # (Auto) 600 (0-900) /uL Eos # (Auto) 100 (0-450) /uL Baso # (Auto) 100 (0-100) /uL Sodium 143 (137-145) mmol/L Potassium 3.7 (3.4-5.1) mmol/L Chloride 106 (98-107) mmol/L Carbon Dioxide 26 (22-32) mmol/L BUN 45 H (9-20) mg/dL Creatinine 1.65 H (0.66-1.25) mg/dL Estimated GFR 40 L (>60) mL/min BUN/Creatinine Ratio 27.3 H (6-22) Glucose 111 H (70-99) mg/dL Calcium 8.5 (8.4-10.2) mg/dL Magnesium 2.2 (1.6-2.3) mg/dL Total Bilirubin 0.9 (0.2-1.3) mg/dL AST 35 (17-59) IU/L ALT 15 (<50) IU/L Alkaline Phosphatase 73 (38-126) U/L Troponin I 0.086 H 0.085 H (0.01-0.034) ng/mL NT-Pro-B Natriuret Pep 1630 H (<450) pg/mL Total Protein 7.6 (6.3-8.2) g/dL Albumin 4.2 (3.5-5.0) g/dL Globulin 3.4 (1.7-4.1) g/dL Albumin/Globulin Ratio 1.2 (1.0-2.8) Lipase 96 (23-300) U/L SARS-CoV-2 (PCR) Negative (Negative) Influenza A (RT-PCR) Flu a negative (NEGATIVE) Influenza B (RT-PCR) Flu b negative (NEGATIVE) RSV (PCR) Negative (Negative) MDM Narrative Medical decision making narrative: Sinus rhythm with a first-degree AV block left axis deviation, LVH rate 88, ME 226, a QRS of 110 QTC of 510. Patient has prior EKG from 04/13/2025 which shows atrial fibrillation rate controlled at 66. EKG shows AFib rate of 76 QRS of 108 QTC of 517, left anterior fascicular block ST segments appears similar. Show white normal white count, hemoglobin and platelets, patient's creatinine is 1.65 was 1.59 in July of 2025 electrolytes are appropriate BUN is 45 glucose is 111, LFTs are normal Mag is 2.2. Troponin is 0.086 priors in the 0.056 range in April of 2025. With a BNP of 16 30, improved from prior April of 2025. Repeat troponin is 0.085 COVID/influenza/RSV is negative Chest x-ray, mild bilateral perihilar and lower lobe rock peribronchial thickening bronchitis viral infection asthma or other processes she would be considered moderate calcifications aortic arch descending aorta, median sternotomy, CABG again noted. Moderate degenerative changes thoracic spine and shoulders change. Pericardial silhouette and pulmonary vasculature within normal limits. No pneumothorax no pleural effusion no lobar consolidation. Patient workup does not show new or rising cardiac enzymes patient is intermittently he would have atrial fibrillation which is his baseline. His COVID/influenza RSV swab is negative but he has had nasal congestion and cough consistent with possible viral infection chest x-ray seems consistent with this as well with a peribronchial thickening. Plan to give patient a short course of steroids. He does have an inhaler at home which had noted was helpful he has only had to use it twice in the last 10 hours and otherwise is well- appearing we will plan for discharge home with these medications. Reviewed findings with the patient and caregiver at bedside. All questions answered. Patient is unsure thinks he might need a refill of his albuterol. Discharge Plan Departure Patient Disposition: Home Clinical Impression: Bronchitis Instructions: DI for Acute Bronchitis Activity Restrictions/Additional Instructions: Please follow up with your physician as needed. Your workup today does have some changes on chest x-ray consistent with a viral infection with peribronchial thickening. Take steroids until completed. Continue to use your inhaler as needed use with a spacer. Prescription sent to [facility] in [place]. Please return if you have new or worsening chest pain, increasing shortness of breath, persistent fevers, coughing up blood, difficulty with breathing or other new or concerning changes. Prescriptions: New albuterol sulfate 90 mcg/actuation aero powdr breath act w/sensor 2 inh inhalation Q4-6H PRN (Reason: shortness of breath or wheezing) Qty: 1 0RF prednisone 10 mg tablets,dose pack See Rx Instructions .ROUTE .COMPLEX Qty: 21 0RF Rx Instructions: 6 tabs p.o. x1 day, then 5 tabs p.o. x1 day, then 4 tablets p.o. x1 day, then 3 tabs p.o. x1 day, then 2 tabs p.o. x1 day, then 1 tab p.o. x1 day No Action multivitamin Tablet 1 tab PO DAILY Qty: 0 furosemide 20 mg tablet See Rx Instructions PO DAILY Qty: 30 0RF Rx Instructions: Take one tablet by mouth prn shortness of breath, if ineffective in 60 minutes, take at additional two additional tablets. Max daily dose of 60mg fluticasone propion-salmeterol [Advair HFA] 45-21 mcg/actuation HFA aerosol inhaler 2 puff inhalation BID Qty: 12 0RF diazepam 5 mg tablet 2.5 - 5 mg PO ONCE PRN (Reason: panic) Qty: 10 0RF losartan 25 mg tablet See Rx Instructions PO .COMPLEX Rx Instructions: 75mg by mouth BID hydralazine 10 mg tablet 25 mg PO 3XD valacyclovir 1 gram tablet 1,000 mg PO DAILY nitrofurantoin monohyd/m-cryst [Macrobid] 100 mg capsule 100 mg PO BID Qty: 60 2RF Rx Instructions: must administer with a meal/food tamsulosin 0.4 mg capsule 0.4 mg PO BID Patient Comments: take 1 capsule by mouth twice a day Eliquis 5 mg tablet 2.5 mg PO BID albuterol sulfate [Ventolin HFA] 90 mcg/actuation HFA aerosol inhaler 2 puff inhalation Q4-6H PRN (Reason: shortness of breath or wheezing) Qty: 6.7 0RF mirabegron [Myrbetriq] 50 mg tablet extended release 24 hr 50 mg PO DAILY Qty: 90 0RF Referrals: Amanda Castillo DO [Primary Care Provider, Medical] Stand Alone Forms: Patient Portal/API
--- NOTE | 2025-08-26 07:21 | DI.RAD.S_ITS ---
PROCEDURE: XR CHEST 1V INDICATIONS: cough x3d, chest pain TECHNIQUE: One view of the chest was acquired. COMPARISON: [facility], CR, XR CHEST 1V, 04/13/2025, 10:15. FINDINGS: Mild bilateral perihilar and lower lobe peribronchial thickening, some of which may be related expiratory result; however, bronchitis, viral infection, asthma or other process should be considered. Moderate calcifications of the aortic arch descending aorta. Median sternotomy, CABG again noted. Moderate degenerative changes of thoracic spine and shoulders unchanged. Cardiopericardial silhouette and pulmonary vasculature within normal limits. No pneumothorax, no pleural effusion, no lobar consolidation. IMPRESSION: Peribronchial thickening as discussed above. Follow-up suggested. If symptoms persist or worsen, CT chest could be performed. Dictated by: Osmani Martin M.D. on 08/26/2025 at 8:26 Approved by: Osmani Martin M.D. on 08/26/2025 at 8:28
[2025-08-26 07:33] LABS: Add Manual Diff / Slide Review NO; Hematocrit 42.3 % (41-53); Hemoglobin 14.0 g/dL (13.5-17.5); Lymphocytes Absolute Auto 1400 /uL (1100-4500); Mean Corpuscular HGB Conc 33.2 % (30-36); Mean Corpuscular Hemoglobin 31.3 PG (26-34); Mean Corpuscular Volume 94.3 fL (80-100); Platelet Count 213 X10^3/uL (150-400)
--- NOTE | 2025-08-26 07:38 | PC.NURSE ---
Spouse asking if she could give morning meds to patient (Losartan, Eliquis and Hydralazine) Dr. Sky aware reporting to wait until she visits
[2025-08-26 07:39] LABS: Alanine Aminotransferase 15 IU/L (<50); Albumin 4.2 g/dL (3.5-5.0); Albumin Globulin Ratio 1.2 (1.0-2.8); Alkaline Phosphatase 73 U/L (38-126); Blood Urea Nitrogen 45 mg/dL (9-20); Calcium 8.5 mg/dL (8.4-10.2); Carbon Dioxide 26 mmol/L (22-32); Chloride 106 mmol/L (98-107); Estimated Glomerular Filt Rate 40 mL/min (>60); Globulin 3.4 g/dL (1.7-4.1); Glucose 111 mg/dL (70-99); HEMOLYSIS 27 (0-50); Lipase 96 U/L (23-300); Magnesium 2.2 mg/dL (1.6-2.3); Potassium 3.7 mmol/L (3.4-5.1); Sodium 143 mmol/L (137-145); Total Protein 7.6 g/dL (6.3-8.2)
[2025-08-26 07:51] LABS: NT-proBNP (BNP-Adult 18+) 1630 pg/mL (<450); Troponin I 0.086 ng/mL (0.01-0.034)
--- NOTE | 2025-08-26 08:08 | PC.NURSE ---
pt given applesauce per provider order for patients AM medications (losartan, eliquis, hydralazine and supplements)
[2025-08-26 08:28] LABS: COVID-19 CEPHEID 4-PLEX PCR Negative (Negative); Influenza A - CEPHEID Flu A NEGATIVE (NEGATIVE); Influenza B - CEPHEID Flu B NEGATIVE (NEGATIVE)
--- NOTE | 2025-08-26 09:09 | EKG_ITS ---
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
[2025-08-26 09:57] LABS: Troponin I 0.085 ng/mL (0.01-0.034)
[2025-08-26] MEDS: methylPREDNISolone succ 125 MG/2 ML VIAL IV (10:25)
== END 2025-08-26 11:44 | disposition home or self-care (01) ==
PROVIDERS: Emergency Provider Emergency Medicine; PCP Family Medicine
DX: J20.9 Acute bronchitis, unspecified (principal); Z79.01 Long term (current) use of anticoagulants
CPT/HCPCS: 71045; 80053; 83690; 83735; 83880; 84484; 85025; 87637; 93005; 96374; 99284; J2919